=== PATIENT | male | born 1955 | race Caucasian/White ===

== ENCOUNTER 2017-08-22 06:44 | Emergency (ER) | payer MEDICARE, MEDICAID, SELFPAY ==
[2017-08-22 06:45] VITALS: BP 140/109; PULSE 65; RESP 24; TEMP 36.4; O2SAT 94; BMI 79.0
--- NOTE | 2017-08-22 06:57 | NURSING ---
NO LW OR POA
--- NOTE | 2017-08-22 07:03 | RAD_ITS ---
STUDY: X-RAY - ABDOMEN/PELVIS REASON FOR EXAM: Male, 61 years old. One-week history of right lower quadrant pain. No bowel movements. TECHNIQUE: Two AP supine views of the abdomen and pelvis. COMPARISON: None. FINDINGS: Normal visualized lung bases. There is an unremarkable bowel gas pattern. The visualized liver, spleen and kidneys are grossly normal in size and morphology. Normal soft tissue structures. There are diffuse degenerative changes of the visualized lumbar spine. Degenerative changes of both hip joints. Healed fracture of the left inferior pubic ramus. RAD/Abdomen Single View IMPRESSION: Normal x-ray examination of the abdomen and pelvis. Electronically Signed: Jon Narvaez MD at 9:56 EST Tel [phone], Service support ,
--- NOTE | 2017-08-22 07:11 | ED.VISSUMM ---
- ER Visit Summary Date of Service: 08/22/17 Chief Complaint: Abdominal pain History of Present Illness: The patient is a 61 M who comes in from a [facility] with abdominal pain. Been ongoing for 2 days. He states is cramping on the right side. senior living staff noted that he has not had a bowel movement in 1 week. They tried an enema without any results. He has not had a fever, nausea or vomiting. He does take chronic narcotics. He has a history of lymphedema in his left leg comes and wrapped with gauze. Physical Examination: Vital signs are reviewed. HEENT exam unremarkable. Heart is regular rate and rhythm without murmurs. Lungs are clear to auscultation bilaterally. Abdomen is soft, obese with right-sided tenderness. Extremity exam reveals bilateral lower extremity lymphedema. His left leg is malodorous and is erythematous from the distal calf down to the foot. It is warm to touch. His neurologic exam is at baseline. Test Results: Laboratory studies reveal a white blood cell count of 11.6, hemoglobin 12.4. Total bilirubin is 1.2 alkaline phosphatase 123. Urinalysis reveals no blood or infection. Acute abdominal series reveals no acute findings. Emergency Department Course and Treatment: Patient was given Toradol for pain control. His pain may be due to constipation. His white blood cell count is fairly normal. I do not feel he requires any further imaging other than the KUB. I spoke with Dr. Salazar regarding the patient's left leg. He states that that is pretty normal for him. I will not start him on antibiotics for this. He will be sent back to his fpc with MiraLAX to help with constipation. Treatment Plan: [] Disposition: Discharge Impression: Constipation This note was generated with [employer] software. It may contain incorrect words, spelling, and punctuation that were not noted in review of the chart prior to signing ED Disposition - Plan for ED Patient: Chief Complaint: Constipation Referrals: Scott Salazar MD [Primary Care Provider] -
[2017-08-22 09:20] LABS: ALB/GLOB Ratio 0.6 RATIO (0.9-2.4); AST(SGOT) 31 U/L (15-37); Alanine Aminotransfer ALT/SGPT 22 U/L (16-61); Albumin, Serum 3.2 g/dL (3.2-5.0); Alkaline Phosphatase 123 U/L (45-117); Anion Gap 10 (5-15); BUN 16 mg/dL (7-18); BUN/Creat Ratio 13.7 RATIO (10-20); Calcium,Total 8.2 mg/dL (8.5-10.1); Chloride 104 mmol/L (98-107); Creatinine, Serum 1.17 mg/dL (0.70-1.30); EST Glomerular Filtration Rate 67 mL/min (>60); Est Glom Filt Rate - Afr Amer 81 mL/min (>60); Estimated Creatinine Clearance 73.98 ml/min; Globulin 5.3 g/dL (2.2-4.2); Glucose 97 mg/dL (74-106); Lipase 111 U/L (73-393); Potassium 4.6 mmol/L (3.5-5.1); Protein, Total 8.5 g/dL (6.4-8.2); Sodium Level 137 mmol/L (136-145)
--- NOTE | 2017-08-22 09:39 | NURSING ---
FOUND POA PAPERS
[2017-08-22 10:23] LABS: Hemoglobin 12.4 g/dl (13.0-16.5); White Blood Count 11.6 K/mm3 (4.4-11.0)
[2017-08-22 10:24] LABS: Hematocrit 41.8 % (40-54); Mean Corp Hgb Conc 29.7 g/gl (32-36); Mean Corpuscular Hgb 26.4 pg (27.0-32.0); Mean Corpuscular Volume 88.9 fL (80-94); Mean Platelet Vol. 11.9 fl (6.2-12.0); Platelet Count 123 K/mm3 (150-450); RBC Distribution Width CV 17.2 % (11.6-14.6)
[2017-08-22 10:26] LABS: Differential Indicated SCAN CRITERIA MET; POSITIVE COUNT NO; POSITIVE DIFFERENTIAL YES; POSITIVE MORPHOLOGY NO
[2017-08-22 10:29] VITALS: BP 162/76; PULSE 72; RESP 16; O2SAT 97
--- NOTE | 2017-08-22 10:34 | NURSING ---
DR TEA JENKINS
[2017-08-22 10:56] LABS: Basophil% 0.2 % (0-1); Eosinophils% 0.2 % (0-5); Lymphocyte % 5.1 % (19-41); Monocyte% 7.6 % (0-10); Neutrophil % 86.7 % (47-70)
[2017-08-22 10:57] LABS: Basophil# 0.02 X10^3/uL; Eosinophil# 0.02 X10^3/uL; Lymphocyte # 0.59 X10^3/ul (4.0); Monocyte# 0.89 X10^3/uL
[2017-08-22] MEDS: Ketorolac 30 MG/ML Syringe IV (10:59)
[2017-08-22 11:01] LABS: Color, Urine Amber (Yellow); Glucose, Dipstick Normal (Normal); Ketone-Dipstick 15 mg/dl (Negative); Leukocyte Esterase-Dipstick 25 /ul (Negative); Nitrite-Dipstick Negative (Negative); Occult Blood-Urine 10 /ul (Negative); Protein-Dipstick 100 mg/dl (Negative); Specific Gravity, Urine 1.025 (1.002-1.030); Urine Clarity Sl. Cloudy (Clear); Urine Urobilinogen 1 mg/dl (Normal)
[2017-08-22 11:04] LABS: Urine Bilirubin Dipstick 1 mg/dL (Negative)
[2017-08-22 11:11] LABS: Red Blood Cells-Urine 0-5 SEEN /hpf (0-5); Squamous Epithelial Cells - UA 0-5 SEEN /hpf (0-5); White Blood Cells 0-5 SEEN /hpf (0-5)
[2017-08-22 11:12] LABS: Bacteria 1+ /hpf (None Seen); Mucous, Urine 1+ /hpf (<or=2+)
--- NOTE | 2017-08-22 11:19 | ED.DEP ---
ED Disposition - Plan for ED Patient: Disposition: Home or Assisted Living Chief Complaint: Constipation Instructions: ED Constipation Prescriptions: Polyethylene Glycol 3350 [Miralax] 17 gm PO DAILY #30 packet Referrals: Scott Salazar MD [Primary Care Provider] -
[2017-08-22 11:32] VITALS: BP 156/79; PULSE 78; RESP 18; O2SAT 95
[2017-08-22 12:16] VITALS: BP 142/70; PULSE 80; RESP 14; O2SAT 97
== END 2017-08-22 12:23 | disposition home or self-care (01) ==
PROVIDERS: Emergency Provider Emergency Medicine; Family Provider Family Medicine; PCP Family Medicine
DX: K59.00 Constipation, unspecified (principal); I89.0 Lymphedema, not elsewhere classified; I50.9 Heart failure, unspecified; E11.9 Type 2 diabetes mellitus without complications; Z79.84 Long term (current) use of oral hypoglycemic drugs; E66.9 Obesity, unspecified; Z68.45 Body mass index [BMI] 70 or greater, adult; Z79.899 Other long term (current) drug therapy
CPT/HCPCS: 74018; 80053; 81001; 83690; 85025; 96374; 99284; A4216

== ENCOUNTER 2018-04-21 11:01 | Inpatient (IN) | payer OTHER, MEDICAID, SELFPAY ==
[2018-04-21] VITALS (25 sets, daily range): BP systolic 107–156; BP diastolic 56–110; PULSE 93–109; RESP 12–24; TEMP 35.5–37.3; O2SAT 89–100; BMI 77.7
--- NOTE | 2018-04-21 11:15 | RAD_ITS ---
STUDY: X-RAY CHEST REASON FOR EXAM: Male, 62 years old. Dyspnea. TECHNIQUE: Two AP portable views of the chest. COMPARISON: Chest radiograph dated August 20, 2016. FINDINGS: Cardiac monitoring leads are present. The lungs are expanded. There are prominent bronchovascular markings in both lungs. There is right basilar subsegmental atelectasis. There is a right-sided pleural effusion. There is moderate cardiac enlargement. Normal mediastinum and jb. There is prominence of the pulmonary hilar arteries and peripheral pulmonary arteries, consistent with congestive heart failure (CHF). There is atherosclerotic calcification of the aortic arch with tortuosity. There are diffuse degenerative changes of the visualized thoracic spine. Normal visualized ribs, clavicles, and shoulders. There is no demonstrated abnormality of the visualized soft tissue structures of the upper abdomen. RAD/Chest 1 View (Portable) IMPRESSION: Radiographic findings suggest congestive heart failure. Electronically Signed: Joan Gorman MD at 11:58 EDT , Service support ,
--- NOTE | 2018-04-21 11:16 | EKG12_ITS ---
Test Reason : SOB Blood Pressure : / mmHG Vent. Rate : 100 BPM Atrial Rate : 100 BPM P-R Int : 150 ms QRS Dur : 134 ms QT Int : 362 ms P-R-T Axes : 057 266 070 degrees QTc Int : 466 ms Sinus rhythm with Premature atrial complexes Right superior axis deviation Non-specific intra-ventricular conduction block Abnormal ECG Confirmed by DESTINEE GALLARDO, DOTTY ([id number]), proposal editor LOWELL MOE ([id number]) on 04/24/2018 3:10:18 PM Referred By: ARISTEO/TIKI Confirmed By:DOTTY FELIPE MD
[2018-04-21 11:25] LABS: Base Excess 5 mmol/L (-2 to +2); Bicarbonate 30.9 mmol/L (22-26); Blood Gas Specimen Type ART; O2 Delivery Device Nasal Can; PO2 79 mmHG (75-100); SITE L Brachial; SO2 94 % (95-99); Time Given 1115; Total Carbon Dioxide 33 mmol/L; pCO2 62.5 mmHg (35-45)
[2018-04-21] MEDS: 0.9% Normal Saline 1,000 ML 1000 ML IV (11:30)
--- NOTE | 2018-04-21 11:32 | CT_ITS ---
STUDY: CT BRAIN WITHOUT CONTRAST REASON FOR EXAM: Male, 62 years old. Altered mental status. RADIATION DOSAGE (If Supplied By Facility): CTDIvol = ( 44.99 ) mGy, DLP = ( 931.09 ) mGycm TECHNIQUE: Transaxial CT imaging of the brain was performed without administration of intravenous contrast material. Individualized dose optimization techniques were used for this CT. COMPARISON: None. FINDINGS: Normal soft tissue structures. Normal calvarium. Normal size ventricles and extra-axial spaces for the patient's age. Normal white matter tracts of the cerebral hemispheres. Normal basal ganglia and thalami. Normal brainstem. Normal cerebellum. There is no intracranial hemorrhage. There is no large vessel territory ischemia/edema. Normal visualized paranasal sinuses. There is a homogeneous, 2.2 cm transverse by 2.5 cm AP by 1.7 cm SI mass within the posterior right orbit. This mass inferiorly displaces and does not appear to originate from the optic nerve. This mass may originate from the rectus musculature. There is associated mild right proptosis. CT/Brain/Head without Contrast IMPRESSION: No CT evident acute intracranial brain pathology. Right orbital mass with right proptosis. Differential considerations include hemangioma versus pseudotumor versus rhabdomyoma/rhabdomyosarcoma. Recommend further evaluation with dedicated orbital MRI. Electronically Signed: Soto Sutherland MD at 13:40 EDT , Service support ,
--- NOTE | 2018-04-21 11:33 | ED.VISSUMM ---
- ER Visit Summary Date of Service: 04/21/18 Chief Complaint: Slurred speech History of Present Illness: The patient is a 62 M presenting from [facility] with slurred speech. This started approximately 3 hours ago. Patient has a history of morbid obesity and is chronically bedbound. His family states he has not been out of the bed in the past 1-2 months. Nursing staff noticed slurred speech this morning. They are unsure exactly when this started. Also complains of bilateral lower extremity cellulitis and low pulse ox. He has oxygen that he wears as needed but does not wear it all the time. He denies chest pain or abdominal pain. Physical Examination: Vitals are stable. Patient is afebrile. Alert no acute distress. 95% on 5L. HEENT exam is unremarkable. Neck is supple. Lungs are clear and equal anteriorly Heart is regular and tachycardic Abdomen is soft nontender, Morbidly obese Extremities bilateral lower extremity lymphedema. Erythema and warmth right greater than left. Skin is warm and dry. Mild dysarthria Remainder of exam is unremarkable. Emergency Department Course and Treatment: EKG is sinus rate of 100 with no acute ischemic changes. Chest x-ray shows CHF. CBC shows a white count of 9.1, hemoglobin 9.9, platelet 126. Chemistries shows sodium 134, potassium 5.2, BUN 23. Urinalysis shows positive nitrate, 0-5 white blood cells. Urine and blood cultures were sent. Troponin 0.032. Lactic acid is 3.6. Initial ABG shows a pH of 7.302, PCO2 62.5, PO2 79. Patient was placed on BiPAP on arrival. When attempting to take the patient to CT scan he became combative in CT scan and pulled off his BiPAP mask. He was given 1 dose of Ativan and we were able to obtain CT scan. CT head shows no CT evident acute intracranial brain pathology. Right orbital mass with right proptosis. Differential considerations include hemangioma versus pseudotumor versus rhabdomyoma/rhabdomyosarcoma. Recommend further evaluation with dedicated orbital MRI. Patient has become more somnolent in the emergency department. Repeat ABG shows pH 7.24, PCO2 74.5, PO2 149. Discussed these findings with the family at length. Patient is a full code. Discussed options of DNR [facility] and DNR [facility]. They prefer that he is intubated at this time. They are aware of the CT findings and our inability to work this up with MRI at this hospital. They do not want transfer at this time. He was given succinylcholine and etomidate. Patient was intubated with 8.0 ET tube, 22 at lips. Equal breath sounds bilaterally. He was given Zosyn and vancomycin. Discussed with Dr. Lopez and the hospitalist for admission. Disposition: Admission Impression: Respiratory failure, bilateral lower extremity cellulitis, dysarthria, abnormal head CT, intubation by ED physician This note was generated with [employer] dictation software. It may contain incorrect words, spelling, and punctuation that were not noted in review of the chart prior to signing ED Disposition - Plan for ED Patient: Chief Complaint: General Illness Referrals: Scott Salazar MD [Primary Care Provider] -
--- NOTE | 2018-04-21 11:38 | ED.DCSUM_ITS ---
- ER Visit Summary Date of Service: 04/21/18 Chief Complaint: Slurred speech History of Present Illness: The patient is a 62 M presenting from [facility] with slurred speech. This started approximately 3 hours ago. Patient has a history of morbid obesity and is chronically bedbound. His family states he has not been out of the bed in the past 1-2 months. Nursing staff noticed slurred speech this morning. They are unsure exactly when this started. Also complains of bilateral lower extremity cellulitis and low pulse ox. He has oxygen that he wears as needed but does not wear it all the time. He denies chest pain or abdominal pain. Physical Examination: Vitals are stable. Patient is afebrile. Alert no acute distress. 95% on 5L. HEENT exam is unremarkable. Neck is supple. Lungs are clear and equal anteriorly Heart is regular and tachycardic Abdomen is soft nontender, Morbidly obese Extremities bilateral lower extremity lymphedema. Erythema and warmth right greater than left. Skin is warm and dry. Mild dysarthria Remainder of exam is unremarkable. Emergency Department Course and Treatment: EKG is sinus rate of 100 with no acute ischemic changes. Chest x-ray shows CHF. CBC shows a white count of 9.1, hemoglobin 9.9, platelet 126. Chemistries shows sodium 134, potassium 5.2, BUN 23. Urinalysis shows positive nitrate, 0-5 white blood cells. Urine and blood cultures were sent. Troponin 0.032. Lactic acid is 3.6. Initial ABG shows a pH of 7.302, PCO2 62.5, PO2 79. Patient was placed on BiPAP on arrival. When attempting to take the patient to CT scan he became combative in CT scan and pulled off his BiPAP mask. He was given 1 dose of Ativan and we were able to obtain CT scan. CT head shows no CT evident acute intracranial brain pathology. Right orbital mass with right proptosis. Differential considerations include hemangioma versus pseudotumor versus rhabdomyoma/rhabdomyosarcoma. Recommend further evaluation with dedicated orbital MRI. Patient has become more somnolent in the emergency department. Repeat ABG shows pH 7.24, PCO2 74.5, PO2 149. Discussed these findings with the family at length. Patient is a full code. Discussed options of DNR [employer]OLOG[employer] PHOTOGRAPHER and DNR CCA. They prefer that he is intubated at this time. They are aware of the CT findings and our inability to work this up with MRI at this hospital. They do not want transfer at this time. He was given succinylcholine and etomidate. Patient was intubated with 8.0 ET tube, 22 at lips. Equal breath sounds bilaterally. He was given Zosyn and vancomycin. Discussed with Dr. Lopez and the hospitalist for admission. Disposition: Admission Impression: Respiratory failure, bilateral lower extremity cellulitis, dysarthria, abnormal head CT, intubation by ED physician This note was generated with [employer] dictation software. It may contain incorrect words, spelling, and punctuation that were not noted in review of the chart prior to signing ED Disposition - Plan for ED Patient: Chief Complaint: General Illness Referrals: Scott Salazar MD [Primary Care Provider] -
[2018-04-21 11:40] LABS: Mucous, Urine 0 SEEN /hpf (<or=2+); Squamous Epithelial Cells - UA 0 SEEN /hpf (0-5)
[2018-04-21 11:43] LABS: Color, Urine Yellow (Yellow); Glucose, Dipstick Normal (Normal); Ketone-Dipstick 15 mg/dl (Negative); Leukocyte Esterase-Dipstick 25 /ul (Negative); Nitrite-Dipstick Positive (Negative); Occult Blood-Urine 10 /ul (Negative); Protein-Dipstick 100 mg/dl (Negative); Specific Gravity, Urine 1.025 (1.002-1.030); Urine Clarity Sl. Cloudy (Clear); Urine Urobilinogen 8 mg/dl (Normal)
[2018-04-21 11:47] LABS: Urine Bilirubin Dipstick 3 mg/dL (Negative)
[2018-04-21 11:50] LABS: Red Blood Cells-Urine 0-5 SEEN /hpf (0-5); White Blood Cells 0-5 SEEN /hpf (0-5)
[2018-04-21 11:51] LABS: Bacteria 1+ /hpf (None Seen)
[2018-04-21 11:58] LABS: Anion Gap 3 (5-15); BUN 23 mg/dL (7-18); BUN/Creat Ratio 18.4 RATIO (10-20); Calcium,Total 8.9 mg/dL (8.5-10.1); Chloride 98 mmol/L (98-107); Creatinine, Serum 1.25 mg/dL (0.70-1.30); EST Glomerular Filtration Rate 62 mL/min (>60); Est Glom Filt Rate - Afr Amer 75 mL/min (>60); Glucose 91 mg/dL (74-106); Potassium 5.2 mmol/L (3.5-5.1); Sodium Level 134 mmol/L (136-145)
[2018-04-21 12:03] LABS: Lactic Acid 3.6 mmol/L (0.4-2.0)
[2018-04-21] MEDS: LORazepam 2 MG/ML Syringe 1 MG IV (12:22)
--- NOTE | 2018-04-21 12:26 | ED.RN ---
PT BECAME AGITATED IN IMAGING, UNABLE TO COMPLETE SCAN, REFUSING TO WEAR BIPAP. MEDICATED WITH ATIVAN, WILL RE ATTEMPT SCAN AND BIPAP.
--- NOTE | 2018-04-21 12:33 | ED.RN ---
CRITICAL LACTIC OF 3.6 PER LAB, NOTIFIED AT TIME OF CALL.
[2018-04-21 12:45] LABS: Absolute Lymphocyte Count 0.51 X10^3/ul (0.83-4.51); Absolute Neutrophil Count 8.3 X10^3/uL (2.0-7.7); Eosinophil# 0.02 X10^3/uL; Eosinophils% 0.2 % (0-5); Hematocrit 33.3 % (40-54); Hemoglobin 9.9 g/dl (13.0-16.5); Lymphocyte # 0.51 X10^3/ul (4.0); Lymphocyte % 5.6 % (19-41); Mean Corp Hgb Conc 29.7 g/gl (32-36); Mean Corpuscular Hgb 27.8 pg (27.0-32.0); Mean Corpuscular Volume 93.5 fL (80-94); Mean Platelet Vol. 10.4 fl (6.2-12.0); Monocyte# 0.34 X10^3/uL; Monocyte% 3.7 % (0-10); Neutrophil # 8.25 X10^3/uL (2.7-7.7); Neutrophil % 90.3 % (47-70); Platelet Count 126 K/mm3 (150-450); RBC Distribution Width CV 19.9 % (11.6-14.6); RBC Distribution Width SD 65.2 fl (35.1-43.9); Red Blood Count 3.56 M/mm3 (4.6-6.2); White Blood Count 9.1 K/mm3 (4.4-11.0)
[2018-04-21 12:49] LABS: Differential Indicated SCAN CRITERIA MET; POSITIVE COUNT NO; POSITIVE DIFFERENTIAL YES; POSITIVE MORPHOLOGY YES
--- NOTE | 2018-04-21 13:50 | ED.RN ---
DOES NOT WANT MORE THAN 1000ML NS INFUSED AT THIS TIME, CONCERN FOR CHF.
[2018-04-21 13:51] LABS: Base Excess 4 mmol/L (-2 to +2); Bicarbonate 31.9 mmol/L (22-26); Blood Gas Specimen Type ART; EPAP 8; FI02 50; IPAP 25; PO2 149 mmHG (75-100); RR 12; SITE R Radial; SO2 99 % (95-99); Time Given 1335; Total Carbon Dioxide 34 mmol/L; pCO2 74.5 mmHg (35-45); pH 7.24 (7.35-7.45)
--- NOTE | 2018-04-21 13:57 | CPS ---
Patient tolerating bipap poor-fair. Patient asked multiple times for pressures to be lowered. Pressures lowered. while in CT Scan, patient became agitated and removed the bipap mask. He was placed on a nasal cannula and returned to ED.
--- NOTE | 2018-04-21 14:03 | CPS ---
Patient more relaxed now. Bipap mask placed on patient, tolerated trip to CT Scan well.
[2018-04-21] MEDS: Succinylcholine Chloride 200 MG/10 ML Vial 120 MG IV (14:38)
--- NOTE | 2018-04-21 14:43 | RAD_ITS ---
STUDY: X-RAY CHEST REASON FOR EXAM: Male, 62 years old. Dyspnea. TECHNIQUE: Two AP portable views of the chest. COMPARISON: Chest radiograph dated August 20, 2016. FINDINGS: Cardiac monitoring leads are present. The lungs are expanded. There are prominent bronchovascular markings in both lungs. There is right basilar subsegmental atelectasis. There is a right-sided pleural effusion. There is moderate cardiac enlargement. Normal mediastinum and jb. There is prominence of the pulmonary hilar arteries and peripheral pulmonary arteries, consistent with congestive heart failure (CHF). There is atherosclerotic calcification of the aortic arch with tortuosity. There are diffuse degenerative changes of the visualized thoracic spine. Normal visualized ribs, clavicles, and shoulders. There is no demonstrated abnormality of the visualized soft tissue structures of the upper abdomen. RAD/Abdomen Single View (Portable) IMPRESSION: Radiographic findings suggest congestive heart failure. Electronically Signed: Joan Gorman MD at 11:58 EDT , Service support ,
--- NOTE | 2018-04-21 14:51 | ED.RN ---
INTUBATED AT 1439, POSITIVE COLOR CHANGE AND POSITIVE BREATH SOUNDS BILATERAL. SEE CRITICAL CARE CHARTING.
--- NOTE | 2018-04-21 14:54 | RAD_ITS ---
STUDY: X-RAY CHEST at 1445 hours REASON FOR EXAM: Male, 62 years old. Endotracheal tube placement. Feeding tube placement. TECHNIQUE: Single AP supine portable view. COMPARISON: Portable chest 04/21/2018 at 1136 hours. FINDINGS: Endotracheal tube is noted, inferior tip is near the midline overlying the tracheal air column at the lower mid clavicular level with inferior tip approximately 7.5 cm above the inferior lizette. Feeding tube is also noted slightly left of the midline projecting over the lower neck but is obscured inferiorly overlying the mediastinum, heart shadow and thoracic spine due to technical underpenetration due to large body habitus and portable supine technique. Technical overpenetration does not allow evaluation of the left upper and midlung zones. Decreased right lung base volume noted with right lung base, perihilar and medial upper lung heterogeneous opacities, may be due to elevated diaphragm, atelectasis/scarring, pleural fluid, pneumonia or mass. Improved aeration is seen in the right upper lung zone since most recent prior portable chest. No right large gross pneumothorax suggested. Left pneumothorax cannot be evaluated in the upper and midlung zones. Heart appears enlarged. Mediastinum appears widened with ill-defined margins, appears unchanged. No change visualized aortic arch and descending thoracic aorta. Visualized bones appear intact but other bones including thoracic spine are difficult to visualize due to technical underpenetration. No obvious subdiaphragmatic free air seen grossly with above limitations. IMPRESSION: Endotracheal tube positioning as described, inferior tip is approximately 7.5 cm above the inferior lizette with this projection. Limitations above including nonvisualization of the left upper and mid lung and portions of the feeding tube as described above. Clinical correlation recommended. Improved aeration right upper lobe medially but heterogeneous opacities now seen, may represent atelectasis/scarring, pleural fluid or pneumonia. Clinical correlation recommended. If clinically indicated, CT chest with IV contrast or follow-up chest exam is recommended to demonstrate complete clearing as clinically indicated. Cardiomegaly and enlarged widened mediastinum are again seen. Clinical correlation recommended. Electronically Signed: Alirio Nuñez at 15:23 EDT Tel , Service support , RAD/Chest 1 View (Portable)
[2018-04-21] MEDS: Piperacil/Tazobactam 3.375 GM/50 ML ML IV (15:01)
[2018-04-21] MEDS: Propofol 200 MG/20 ML Vial 80 MG IV BOLUS (15:15)
[2018-04-21 15:21] LABS: Reflex Lactate? Y
[2018-04-21] MEDS: Vancomycin IV 1,000 MG/200 ML BAG 200 MG IV (15:28)
[2018-04-21] MEDS: Propofol 10MG/Ml 1,000 MG/100 ML Bottle 8.464 MG CONT INF ×2 (15:28→19:41)
--- NOTE | 2018-04-21 15:55 | ED.RN ---
OLDEST SISTER MIRNA PHONE [phone]. BROTHER LARA'S MANDY PHONE [phone]. PLEASE CALL FOR ANY UPDATES OR CONCERNS.
[2018-04-21 16:26] LABS: Allen Test POS; Base Excess 4 mmol/L (-2 to +2); Bicarbonate 30.8 mmol/L (22-26); Blood Gas Specimen Type ART; FI02 50; Mode A-C; O2 Delivery Device Vent; PEEP 8; PO2 80 mmHG (75-100); RR 12; SITE R Radial; SO2 94 % (95-99); Time Given 1610; Total Carbon Dioxide 33 mmol/L; Vt 450; pCO2 65.2 mmHg (35-45); pH 7.28 (7.35-7.45)
--- NOTE | 2018-04-21 17:37 | NURSING ---
Spoke with [facility] nurse and there is no record of pt receiving flu shot this year. No family present and pt currently intubated.
[2018-04-21 18:09] LABS: BNP,B-Type NATRIURETIC PEPTIDE 716.7 pg/mL (0-100)
[2018-04-21] MEDS: Furosemide 40 MG Tablet PO (18:59)
[2018-04-21 19:26] LABS: Lactic Acid 5.3 mmol/L (0.4-2.0)
[2018-04-21] MEDS: Ipratropium/Albuterol Sulfate 3 ML AMPUL.NEB INHALATION (19:30)
[2018-04-21] MEDS: 0.9% NaCl Peripheral Flush Adult/Peds IV ×2 (19:40→22:54)
--- NOTE | 2018-04-21 20:09 | ECHOD_ITS ---
Reason For Study: CHF Procedure This was a 2D Doppler, Color Flow transthoracic echocardiogram. Technically difficult study due to patient body habitus and condition. Patient was intubated in ICU. Exam performed portable in ICU/CCU. Left Ventricle Severely dilated left ventricle. The estimated ejection fraction is 20-25 %. Severe global left ventricular systolic dysfunction. Right Ventricle Severely dilated right ventricle. Moderate global right ventricular systolic dysfunction. Atria The left atrium is severely enlarged. The right atrium is severely enlarged. Mitral Valve Mild (1+) mitral valve insufficiency. Tricuspid Valve Mild tricuspid valve insufficiency. Pulmonary artery systolic pressure is 32 mmHg. Aortic Valve Mild (1+) aortic valve insufficiency. Pulmonic Valve The pulmonic valve is not well visualized. Great Vessels Normal aortic root. Pericardium/Pleural No pericardial effusion. MMode/2D Measurements & Calculations LVIDd: 6.9 cm IVSd: 1.4 cm Ao root diam: 3.8 cm LVIDs: 6.2 cm LVPWd: 1.3 cm LA dimension: 4.6 cm FS: 10.2 % LAV(MOD-sp4): 113.5 ml LA A4 area: 31.9 cm2 RA A4 area: 35.6 cm2 Time Measurements MV dec time: 0.17 sec Doppler Measurements & Calculations MV E max genoveva: 87.7 cm/sec Ao V2 max: 126.2 cm/sec LV V1 max: 112.6 cm/sec MV A max genoveva: 39.5 cm/sec Ao max P.4 mmHg LV V1 max P.1 mmHg MV E/A: 2.2 Ao V2 mean: 85.9 cm/sec LV V1 mean P.8 mmHg Ao mean P.3 mmHg LV V1 mean: 79.8 cm/sec Ao V2 VTI: 17.3 cm LV V1 VTI: 18.8 cm PA V2 max: 96.3 cm/sec Interpretation Summary The estimated ejection fraction is 20-25 %. Severe global left ventricular systolic dysfunction. Septal wall motion consistent with RV pressure and volume overload Severely dilated right ventricle. Moderate global right ventricular systolic dysfunction. Mild (1+) aortic valve insufficiency. Mild (1+) mitral valve insufficiency. Mild tricuspid valve insufficiency. Pulmonary artery systolic pressure is 32 mmHg. Ordering Physician: Mando Romero Referring Physician: Scott Salazar Performed By: Jaylen Bradshaw RCS
--- NOTE | 2018-04-21 20:18 | PCM.HP.STD ---
Problem List (1) Acute and chronic respiratory failure with hypercapnia Status: Acute History of Present Illness Date of Admission: 04/21/18 Chief Complaint: Increasing lethargy and altered sensorium. There is a 62-year-old male with history of super morbid obesity type 2 diabetes who for the last few months has been essentially bedbound. Patient currently resides in a senior care. At the senior care was noted to be lethargic somnolent and with slurred speech so was brought to the emergency department. Here arterial blood gases were done and patient was noted to be hypercapnic and slightly acidotic. Patient was placed on noninvasive positive pressure ventilation with BiPAP. However despite being on this, mental status continued to worsen with the patient becoming largely unresponsive. Also ABGs continue to worsen as well. On account of this and also to protect patient's airway, patient was electively intubated and placed on mechanical ventilation. Patient is known to have chronic venous stasis in the lower extremities as well as lymphedema which is pretty severe and recurrent cellulitis from these as well. Patient currently dealing with another bout of cellulitis and has been on oral antibiotics at the senior care. Past Medical History Past Medical History (Chronic Problems): Chronic Problems DM2 (diabetes mellitus, type 2) (Chronic) Venous stasis ulcer (Chronic) Lymphedema (Chronic) Poor hygiene (Chronic) Morbid obesity (Chronic) Allergies No Known Allergies Allergy (Verified 04/21/18 11:15) Home Medications: Ambulatory Orders Medication Instructions Recorded Acetaminophen [Tylenol] 650 mg PO Q4H PRN 04/21/18 Albuterol Aerosols [Ventolin 2.5 mg INHALATION Q4H PRN PRN 04/21/18 Aerosols] Allopurinol [Zyloprim] 300 mg PO QHS 04/21/18 Atenolol [Tenormin (Beta Mckinley)] 50 mg PO BID 04/21/18 Bisacodyl [Dulcolax] 10 mg PO DAILY PRN 04/21/18 Bisacodyl [Dulcolax] 10 mg RECTAL DAILY PRN 04/21/18 Bismuth Subsalicylate 30 ml PO Q1H PRN 04/21/18 Dextrose [Glucose Gel] 1 dose PO PRN PRN 04/21/18 Dicyclomine HCl 20 mg PO DAILY 04/21/18 Doxycycline 100 mg PO DAILY 04/21/18 Furosemide [Lasix] 40 mg PO 0800,1200 04/21/18 Glucagon 1 mg IM X1 PRN 04/21/18 Guaifenesin [Mucinex] 600 mg PO Q12H PRN 04/21/18 Guaifenesin [Robitussin] 10 ml PO Q4H PRN PRN 04/21/18 Lactobacillus Rhamnosus GG 1 each PO DAILY 04/21/18 [Culturelle] Loperamide HCl [Imodium A-D] 4 mg PO Q6H PRN 04/21/18 Loratadine 10 mg PO DAILY PRN 04/21/18 Mag Hydrox/Al Hydrox/Simeth 30 ml PO Q4H PRN 04/21/18 [Antacid Suspension] Magnesium Hydroxide [Milk Of 30 ml PO DAILY PRN PRN 04/21/18 Magnesia] Menthol [Biofreeze] 1 applicatio TP Q2H PRN 04/21/18 Methyl Salicylate/Menthol [Muscle 1 applicatio TOPICAL Q2H PRN 04/21/18 Rub Cream] Methyl Salicylate/Menthol [Muscle 1 applicatio TP QHS 04/21/18 Rub Cream] Multivitamins,Therapeutic 1 tablet PO DAILY 04/21/18 [Multivitamin] Na Phos,M-B/Na Phos,Di-Ba [Fleet 120 ml RECTAL X1 PRN 04/21/18 Enema] Nystatin [Mycostatin] 1 applic TOPICAL TID PRN 04/21/18 Omeprazole [Prilosec] 20 mg PO DAILY 04/21/18 Oxycodone [Oxyir] 10 mg PO Q4H PRN PRN 04/21/18 Polyethylene Glycol 3350 [Miralax] 17 gm PO DAILY 04/21/18 Potassium Chloride [Klor-Con M20] 20 meq PO DAILY 04/21/18 Sennosides [Senna] 2 tab PO QHS 04/21/18 Simethicone 80 mg PO TID 04/21/18 buPROPion XL [Wellbutrin Xl] 300 mg PO DAILY 04/21/18 Surgical History: noncontributory Smoking Status: Never smoker - *Family History Maternal History Items: Unknown Paternal History Items: Unknown Review of Systems Comment: Unable to obtain at this time as patient is intubated and unable to vocalize. VTE Information - Inpt Only VTE Present on Admission: No Patient Problems: Active and Suspected Problems Acute and chronic respiratory failure with hypercapnia (Acute) - Physical Exam General: - - Patient is intubated sedated and on mechanical ventilation. HEENT: Atraumatic, PERRLA Oral: Moist Mucosa Neck: Supple, - - Unable to determine jugular venous distention is present as patient has a very short and obese neck. Lungs: - - Breath sounds are diminished bilaterally with a few expiratory wheezing and transmitted sounds noted. Cardiovascular: Regular rate, Regular Rhythm, Normal S1, Normal S2, No murmurs, - - Patient also has a right ventricular S4. Abdomen: Bowel Sounds Present, Soft, Obese Extremities: - - Right lower extremity?markedly swollen markedly erythematous warm tender up to the knee. On the left there is severe lymphedema with hyperkeratosis and [place] on the foot and toes. There is bilateral poorly-pitting edema Skin: - - As above. Neurological: - - Sedated at this time Psych/Mental Status: - - Unable to determine as patient is sedated. Vital Signs Temp Pulse Resp BP Pulse Ox 99.1 F 93 19 H 133/90 H 97 04/21/18 17:30 04/21/18 20:00 04/21/18 18:30 04/21/18 18:30 04/21/18 18:30 Oxygen Flow Rate (L/min) 6 Oxygen Delivery Method Mechanical Ventilator Weight: 282 kg Body Mass Index (BMI) 77.7 Intake and Output for Last 24 Hours 04/19/18 04/20/18 04/21/18 23:59 23:59 23:59 Intake Total 30 / 30 Output Total 300 / 300 Balance -270 / -270 Laboratory Tests Past 24 Hrs 04/21/18 04/21/18 04/21/18 11:14 11:14 11:14 WBC Cancelled Corrected WBC Cancelled RBC Cancelled Hgb Cancelled Hct Cancelled MCV Cancelled MCH Cancelled MCHC Cancelled RDW Cancelled RDW Differential Cancelled Plt Count Cancelled MPV Cancelled Immature Gran % (Auto) Cancelled Neut % (Auto) Cancelled Lymph % (Auto) Cancelled [place] % (Auto) Cancelled Eos % (Auto) Cancelled Baso % (Auto) Cancelled Immature Gran # (Auto) Cancelled Absolute Neuts (auto) Cancelled Absolute Lymphs (auto) Cancelled Absolute Monos (auto) Cancelled Total Counted Cancelled Neutrophils % (Manual) Cancelled Band Neutrophils % Cancelled Lymphocytes % (Manual) Cancelled Monocytes % (Manual) Cancelled Eosinophils % (Manual) Cancelled Basophils % (Manual) Cancelled Metamyelocytes % Cancelled Myelocytes % Cancelled Promyelocytes % Cancelled Blast Cells % Cancelled Plasma Cell % (Manual) Cancelled Other Cells % Cancelled Lymphocytes # Cancelled Nucleated RBCs/100 WBC Cancelled Differential Comment Cancelled Diff Path Review Cancelled Hypersegmented Neuts Cancelled Atypical Lymphocytes Cancelled Reactive Lymphocytes Cancelled Smudge Cells Cancelled Eosinophilia # Cancelled Basophilia # Cancelled Toxic Granulation Cancelled Dohle Bodies Cancelled Ruperto Rods Cancelled Platelet Estimate Cancelled Plt Morphology Comment Cancelled RBC Morphology Cancelled Polychromasia Cancelled Hypochromasia Cancelled Poikilocytosis Cancelled Basophilic Stippling Cancelled Anisocytosis Cancelled Microcytosis Cancelled Macrocytosis Cancelled Spherocytes Cancelled Sickle Cells Cancelled Target Cells Cancelled Tear Drop Cells Cancelled Ovalocytes Cancelled Stomatocytes Cancelled [place] Bodies Cancelled [place] Cells Cancelled Bite Cells Cancelled Acanthocytes (Spur) Cancelled Rouleaux Cancelled Schistocytes Cancelled Specimen Type Sample Site pH Bicarbonate Actual POC Total CO2 Base Excess O2 Saturation O2 % ABG pCO2 ABG pO2 Mart Test Respiration Rate O2 Delivery Device Liter Flow Vent Mode Tidal Volume POC PEEP EPAP IPAP Blood Gas Notified Whom Blood Gas Notified Time Sodium 134 L Potassium 5.2 H Chloride 98 Carbon Dioxide 33.0 H Anion Gap 3 L BUN 23 H Creatinine 1.25 Estim Creat Clear Calc 0.00 Est GFR (MDRD) Af Amer 75 Est GFR (MDRD) Non-Af 62 BUN/Creatinine Ratio 18.4 Glucose 91 Lactic Acid 3.6 H Calcium 8.9 Troponin I 0.032 B-Natriuretic Peptide Urine Color Urine Clarity Urine pH Ur Specific [place] Urine Protein Urine Glucose (UA) Urine Ketones Urine Occult Blood Urine Nitrite Urine Bilirubin Urine Urobilinogen Ur Leukocyte Esterase Urine RBC Urine WBC Ur Squamous Epith Cells Urine Bacteria Urine Mucus 04/21/18 04/21/18 04/21/18 11:21 11:35 12:20 WBC 9.1 Corrected WBC RBC 3.56 L Hgb 9.9 L Hct 33.3 L MCV 93.5 MCH 27.8 MCHC 29.7 L RDW 19.9 H RDW Differential 65.2 H Plt Count 126 L MPV 10.4 Immature Gran % (Auto) 0.200 Neut % (Auto) 90.3 H Lymph % (Auto) 5.6 L [place] % (Auto) 3.7 Eos % (Auto) 0.2 Baso % (Auto) 0.0 Immature Gran # (Auto) Absolute Neuts (auto) 8.3 H Absolute Lymphs (auto) 0.51 L Absolute Monos (auto) Total Counted Not Reportable Neutrophils % (Manual) Band Neutrophils % Lymphocytes % (Manual) Monocytes % (Manual) Eosinophils % (Manual) Basophils % (Manual) Metamyelocytes % Myelocytes % Promyelocytes % Blast Cells % Plasma Cell % (Manual) Other Cells % Lymphocytes # Nucleated RBCs/100 WBC Differential Comment Diff Path Review Hypersegmented Neuts Atypical Lymphocytes Reactive Lymphocytes Smudge Cells Eosinophilia # Basophilia # Toxic Granulation Dohle Bodies Ruperto Rods Platelet Estimate Plt Morphology Comment RBC Morphology Polychromasia Hypochromasia Poikilocytosis Basophilic Stippling Anisocytosis Microcytosis Macrocytosis Spherocytes Sickle Cells Target Cells Tear Drop Cells Ovalocytes Stomatocytes [place] Bodies [place] Cells Bite Cells Acanthocytes (Spur) Rouleaux Schistocytes Specimen Type ART Sample Site L Brachial pH 7.30 L Bicarbonate Actual 30.9 H POC Total CO2 33 Base Excess 5 H O2 Saturation 94 L O2 % ABG pCO2 62.5 H ABG pO2 79 Mart Test Respiration Rate O2 Delivery Device Nasal Can Liter Flow 5.0 Vent Mode Tidal Volume POC PEEP EPAP IPAP Blood Gas Notified Whom ED MD Blood Gas Notified Time 1115 Sodium Potassium Chloride Carbon Dioxide Anion Gap BUN Creatinine Estim Creat Clear Calc Est GFR (MDRD) Af Amer Est GFR (MDRD) Non-Af BUN/Creatinine Ratio Glucose Lactic Acid Calcium Troponin I B-Natriuretic Peptide Urine Color Yellow Urine Clarity Sl. Cloudy Urine pH 5.0 Ur Specific [place] 1.025 Urine Protein 100 H Urine Glucose (UA) Normal Urine Ketones 15 H Urine Occult Blood 10 H Urine Nitrite Positive H Urine Bilirubin 3 H Urine Urobilinogen 8 H Ur Leukocyte Esterase 25 H Urine RBC 0-5 SEEN Urine WBC 0-5 SEEN Ur Squamous Epith Cells 0 SEEN Urine Bacteria 1+ Urine Mucus 0 SEEN 04/21/18 04/21/18 04/21/18 12:20 13:39 16:10 WBC Corrected WBC RBC Hgb Hct MCV MCH MCHC RDW RDW Differential Plt Count MPV Immature Gran % (Auto) Neut % (Auto) Lymph % (Auto) [place] % (Auto) Eos % (Auto) Baso % (Auto) Immature Gran # (Auto) Absolute Neuts (auto) Absolute Lymphs (auto) Absolute Monos (auto) Total Counted Neutrophils % (Manual) Band Neutrophils % Lymphocytes % (Manual) Monocytes % (Manual) Eosinophils % (Manual) Basophils % (Manual) Metamyelocytes % Myelocytes % Promyelocytes % Blast Cells % Plasma Cell % (Manual) Other Cells % Lymphocytes # Nucleated RBCs/100 WBC Differential Comment Diff Path Review Hypersegmented Neuts Atypical Lymphocytes Reactive Lymphocytes Smudge Cells Eosinophilia # Basophilia # Toxic Granulation Dohle Bodies Ruperto Rods Platelet Estimate Plt Morphology Comment RBC Morphology Polychromasia Hypochromasia Poikilocytosis Basophilic Stippling Anisocytosis Microcytosis Macrocytosis Spherocytes Sickle Cells Target Cells Tear Drop Cells Ovalocytes Stomatocytes [place] Bodies [place] Cells Bite Cells Acanthocytes (Spur) Rouleaux Schistocytes Specimen Type ART Sample Site R Radial pH 7.24 L Bicarbonate Actual 31.9 H POC Total CO2 34 Base Excess 4 H O2 Saturation 99 O2 % 50 ABG pCO2 74.5 H* ABG pO2 149 H Mart Test NA Respiration Rate 12 O2 Delivery Device Bi / C PAP Liter Flow Vent Mode Tidal Volume POC PEEP EPAP 8 IPAP 25 Blood Gas Notified Whom ED Blood Gas Notified Time 1335 Sodium Potassium Chloride Carbon Dioxide Anion Gap BUN Creatinine Estim Creat Clear Calc Est GFR (MDRD) Af Amer Est GFR (MDRD) Non-Af BUN/Creatinine Ratio Glucose Lactic Acid Cancelled Calcium Troponin I B-Natriuretic Peptide 716.7 H Urine Color Urine Clarity Urine pH Ur Specific [place] Urine Protein Urine Glucose (UA) Urine Ketones Urine Occult Blood Urine Nitrite Urine Bilirubin Urine Urobilinogen Ur Leukocyte Esterase Urine RBC Urine WBC Ur Squamous Epith Cells Urine Bacteria Urine Mucus 04/21/18 04/21/18 04/21/18 16:21 17:30 18:33 WBC Corrected WBC RBC Hgb Hct MCV MCH MCHC RDW RDW Differential Plt Count MPV Immature Gran % (Auto) Neut % (Auto) Lymph % (Auto) [place] % (Auto) Eos % (Auto) Baso % (Auto) Immature Gran # (Auto) Absolute Neuts (auto) Absolute Lymphs (auto) Absolute Monos (auto) Total Counted Neutrophils % (Manual) Band Neutrophils % Lymphocytes % (Manual) Monocytes % (Manual) Eosinophils % (Manual) Basophils % (Manual) Metamyelocytes % Myelocytes % Promyelocytes % Blast Cells % Plasma Cell % (Manual) Other Cells % Lymphocytes # Nucleated RBCs/100 WBC Differential Comment Diff Path Review Hypersegmented Neuts Atypical Lymphocytes Reactive Lymphocytes Smudge Cells Eosinophilia # Basophilia # Toxic Granulation Dohle Bodies Ruperto Rods Platelet Estimate Plt Morphology Comment RBC Morphology Polychromasia Hypochromasia Poikilocytosis Basophilic Stippling Anisocytosis Microcytosis Macrocytosis Spherocytes Sickle Cells Target Cells Tear Drop Cells Ovalocytes Stomatocytes [place] Bodies [place] Cells Bite Cells Acanthocytes (Spur) Rouleaux Schistocytes Specimen Type ART Sample Site R Radial pH 7.28 L Bicarbonate Actual 30.8 H POC Total CO2 33 Base Excess 4 H O2 Saturation 94 L O2 % 50 ABG pCO2 65.2 H ABG pO2 80 Mart Test POS Respiration Rate 12 O2 Delivery Device Vent Liter Flow Vent Mode A-C Tidal Volume 450 POC PEEP 8 EPAP IPAP Blood Gas Notified Whom ED MD Blood Gas Notified Time 1610 Sodium Potassium Chloride Carbon Dioxide Anion Gap BUN Creatinine Estim Creat Clear Calc Est GFR (MDRD) Af Amer Est GFR (MDRD) Non-Af BUN/Creatinine Ratio Glucose Lactic Acid Cancelled 5.3 H* Calcium Troponin I B-Natriuretic Peptide Urine Color Urine Clarity Urine pH Ur Specific [place] Urine Protein Urine Glucose (UA) Urine Ketones Urine Occult Blood Urine Nitrite Urine Bilirubin Urine Urobilinogen Ur Leukocyte Esterase Urine RBC Urine WBC Ur Squamous Epith Cells Urine Bacteria Urine Mucus Assessment/Plan All Active Problems Acute and chronic respiratory failure with hypercapnia (Acute) Cellulitis, leg (Resolved) Hyperkalemia (Acute) HAY (acute kidney injury) (Acute) Cellulitis (Resolved) 1. Acute encephalopathy secondary to metabolic derangements specifically hypercapnia. 2. Acute on chronic hypercapnic respiratory failure. This appears to be multifactorial including obstructive sleep apnea and perhaps obesity alveolar hypoventilation syndrome and pulmonary hypertension. Suspect that there may be superimposed pulmonary edema from left ventricular diastolic failure. ProBNP is elevated. Will start patient empirically on IV Lasix with serial chest x-ray and physical examinations. Will order chest CT to rule out any other complication such as a atelectasis from mucous plugging. Patient has been intubated and is on mechanical ventilation. Will consult district court bailiff for critical care. 3. Right lower extremity cellulitis. Will treat with IV cefazolin and doxycycline to cover Streptococcus pyogenous and MRSA. Consider infectious disease consultation given protracted and recurrent nature of this infection. 4. Super morbid obesity. Code Visit Inpatient E&M: [id number] Init Hosp L3
[2018-04-21] MEDS: fentaNYL drip 100 ML 5 MCG IV (20:53)
[2018-04-21] MEDS: 0.9% NaCl IVPB Med Flush (250 mL) 15 ML IV (20:54)
[2018-04-21 21:43] LABS: Lactic Acid 4.3 mmol/L (0.4-2.0)
[2018-04-21 22:39] LABS: Reflex Lactate? Y
[2018-04-21] MEDS: Allopurinol 300 MG Tablet GT (22:54)
[2018-04-21] MEDS: Chlorhexidine 15 ML PO (22:54)
[2018-04-21] MEDS: Furosemide 40 MG/4 ML Vial IV (22:54)
[2018-04-21] MEDS: Atenolol 50 MG Tablet GT (22:54)
[2018-04-22] VITALS (45 sets, daily range): BP systolic 68–127; BP diastolic 40–88; PULSE 81–101; RESP 12–32; TEMP 36.2–37.1; O2SAT 95–101
[2018-04-22] MEDS: Propofol 10MG/Ml 1,000 MG/100 ML Bottle 8.464 MG CONT INF ×6 (00:41→21:44)
[2018-04-22 01:14] LABS: Reflex Lactate? Y
[2018-04-22] MEDS: Ipratropium/Albuterol Sulfate 3 ML AMPUL.NEB INHALATION ×4 (01:30→19:37)
[2018-04-22 05:46] LABS: Hemoglobin 14.1 g/dl (13.0-16.5); Mean Corp Hgb Conc 30.7 g/gl (32-36); Mean Corpuscular Hgb 27.7 pg (27.0-32.0); Mean Corpuscular Volume 90.4 fL (80-94); Mean Platelet Vol. 10.8 fl (6.2-12.0); Platelet Count 132 K/mm3 (150-450); RBC Distribution Width CV 20.1 % (11.6-14.6); RBC Distribution Width SD 64.8 fl (35.1-43.9); Red Blood Count 5.09 M/mm3 (4.6-6.2); White Blood Count 15.5 K/mm3 (4.4-11.0)
[2018-04-22] MEDS: 0.9% NaCl Peripheral Flush Adult/Peds IV ×3 (05:46→16:33)
[2018-04-22] MEDS: Furosemide 40 MG/4 ML Vial IV (05:46)
[2018-04-22] MEDS: CHLORHEXIDINE GLUC 2% CLOTH 1 EACH TOWELETTE TOPICAL (05:46)
[2018-04-22 05:47] LABS: Scan Indicated on CBC? Y/N YES- FLAGS NOTED
[2018-04-22 05:59] LABS: Anion Gap 8 (5-15); BUN 23 mg/dL (7-18); BUN/Creat Ratio 19.7 RATIO (10-20); Calcium,Total 8.2 mg/dL (8.5-10.1); Chloride 101 mmol/L (98-107); Creatinine, Serum 1.17 mg/dL (0.70-1.30); EST Glomerular Filtration Rate 67 mL/min (>60); Est Glom Filt Rate - Afr Amer 81 mL/min (>60); Estimated Creatinine Clearance 77.24 ml/min; Glucose 73 mg/dL (74-106); Potassium 4.6 mmol/L (3.5-5.1); Sodium Level 136 mmol/L (136-145)
[2018-04-22 06:06] LABS: Differential Comment SCANNED
[2018-04-22 06:25] LABS: Bedside Glucose 64 mg/dL (70-110)
[2018-04-22] MEDS: Heparin Injection (Vial) 5,000 UNIT/ML VIAL 5000 UNIT SC (07:05)
[2018-04-22] MEDS: Dextrose 50%-Water 25 GM/50 ML DISP.SYRIN IV ×3 (07:06→23:46)
--- NOTE | 2018-04-22 07:16 | PCM.CON.CC ---
Reason for Consult Date of Consultation: 04/22/18 Reason for Consultation: Acute respiratory failure History of Present Illness: The patient is a 62-year-old male, with a history as outlined below, who presented from his prison facility with dysarthric speech, hypoxia and lower extremity edema/erythema. The patient has a history of super morbid obesity and has a history of noncompliance with medical care. He has been essentially bedbound at his prison facility for some time now. History pertinent to the patient's hospitalization was obtained primarily via chart review, as the patient is currently intubated and there is no family available at the bedside. On presentation to the emergency department, the patient was noted to be afebrile, tachypneic and hypoxic. Laboratory evaluation revealed no evidence of a leukocytosis. Chemistry profile revealed elevated potassium to 5.2 with a serum bicarbonate of 33. The patient's lactate was elevated to 3.6, with an elevated BNP to 716. Urinalysis was positive for nitrites and leukocyte esterase with 1+ urine bacteria noted. An initial arterial blood gas obtained on 5 L/min via nasal cannula revealed a pH of 7.3 with a PCO2 of 63 and PO2 of 79. The patient was subsequently placed on BiPAP in the emergency department. His plain film chest imaging initially appeared to be concerning for congestive heart failure. A CT head was obtained which revealed evidence of a right orbital mass with right proptosis. Despite the use of noninvasive positive pressure ventilation, the patient remained exceedingly lethargic and a follow-up arterial blood gas revealed worsening acid-base status, with an elevated PCO2. Therefore, the decision was made to intubate the patient given his lack of response to noninvasive positive pressure ventilation. Per my conversation with the emergency department provider, the family was made aware of the CT head findings and the need for potential follow-up MRI. However, at this time, they would not like to pursue any additional workup. The patient did not initially receive a 30 cc/kg bolus due to fears over underlying heart failure. He was placed on antibiotics and subsequently admitted to the medical intensive care unit. Past Medical History Past Medical History (Chronic Problems): Chronic Problems DM2 (diabetes mellitus, type 2) (Chronic) Venous stasis ulcer (Chronic) Lymphedema (Chronic) Poor hygiene (Chronic) Morbid obesity (Chronic) Allergies No Known Allergies Allergy (Verified 04/21/18 11:15) Home Medications: Ambulatory Orders Medication Instructions Recorded Acetaminophen [Tylenol] 650 mg PO Q4H PRN 04/21/18 Albuterol Aerosols [Ventolin 2.5 mg INHALATION Q4H PRN PRN 04/21/18 Aerosols] Allopurinol [Zyloprim] 300 mg PO QHS 04/21/18 Atenolol [Tenormin (Beta Mckinley)] 50 mg PO BID 04/21/18 Bisacodyl [Dulcolax] 10 mg PO DAILY PRN 04/21/18 Bisacodyl [Dulcolax] 10 mg RECTAL DAILY PRN 04/21/18 Bismuth Subsalicylate 30 ml PO Q1H PRN 04/21/18 Dextrose [Glucose Gel] 1 dose PO PRN PRN 04/21/18 Dicyclomine HCl 20 mg PO DAILY 04/21/18 Doxycycline 100 mg PO DAILY 04/21/18 Furosemide [Lasix] 40 mg PO 0800,1200 04/21/18 Glucagon 1 mg IM X1 PRN 04/21/18 Guaifenesin [Mucinex] 600 mg PO Q12H PRN 04/21/18 Guaifenesin [Robitussin] 10 ml PO Q4H PRN PRN 04/21/18 Lactobacillus Rhamnosus GG 1 each PO DAILY 04/21/18 [Culturelle] Loperamide HCl [Imodium A-D] 4 mg PO Q6H PRN 04/21/18 Loratadine 10 mg PO DAILY PRN 04/21/18 Mag Hydrox/Al Hydrox/Simeth 30 ml PO Q4H PRN 04/21/18 [Antacid Suspension] Magnesium Hydroxide [Milk Of 30 ml PO DAILY PRN PRN 04/21/18 Magnesia] Menthol [Biofreeze] 1 applicatio TP Q2H PRN 04/21/18 Methyl Salicylate/Menthol [Muscle 1 applicatio TOPICAL Q2H PRN 04/21/18 Rub Cream] Methyl Salicylate/Menthol [Muscle 1 applicatio TP QHS 04/21/18 Rub Cream] Multivitamins,Therapeutic 1 tablet PO DAILY 04/21/18 [Multivitamin] Na Phos,M-B/Na Phos,Di-Ba [Fleet 120 ml RECTAL X1 PRN 04/21/18 Enema] Nystatin [Mycostatin] 1 applic TOPICAL TID PRN 04/21/18 Omeprazole [Prilosec] 20 mg PO DAILY 04/21/18 Oxycodone [Oxyir] 10 mg PO Q4H PRN PRN 04/21/18 Polyethylene Glycol 3350 [Miralax] 17 gm PO DAILY 04/21/18 Potassium Chloride [Klor-Con M20] 20 meq PO DAILY 04/21/18 Sennosides [Senna] 2 tab PO QHS 04/21/18 Simethicone 80 mg PO TID 04/21/18 buPROPion XL [Wellbutrin Xl] 300 mg PO DAILY 04/21/18 Surgical History: noncontributory Smoking Status: Never smoker - *Family History Maternal History Items: Unknown Paternal History Items: Unknown Review of Systems Unable to obtain accurate/complete ROS d/t: Due to current intubation and mechanical ventilation status. Patient Problems: Active and Suspected Problems Acute and chronic respiratory failure with hypercapnia (Acute) Objective: The patient's most recent lab work, culture data and imaging studies have all been personally reviewed. Blood and urine cultures are currently pending. - Physical Exam General: - - Super morbidly obese. Intubated, sedated and mechanically ventilated. HEENT: Atraumatic, PERRLA, Normocephalic Oral: No Gingival or Mucosal Lesions/ Ulcerations, - - Endotracheal and OG tubes in place Neck: Supple, No Nodes, Trachea Midline, - - Large neck circumference with an abundant amount of redundant soft tissue Lungs: - - Clear across anterior lung mcnamara with diminished air movement in the posterior lung bases. Cardiovascular: Normal S1, Normal S2, No murmurs, Tachycardic, - - Distant heart tones secondary to body habitus. Abdomen: Bowel Sounds Present, Soft, Obese Extremities: - - Severe bilateral lower extremity lymphedema with hyperkeratosis and erythema (right greater than left) Skin: - - Skin findings as noted above. Musculoskeletal: No Muscle Wasting Neurological: - - No focal neurological deficits. Currently sedated. Vital Signs Temp Pulse Resp BP Pulse Ox 97.4 F L 98 13 124/63 H 98 04/22/18 07:00 04/22/18 07:00 04/22/18 07:00 04/22/18 07:00 04/22/18 07:00 Oxygen Flow Rate (L/min) 6 Oxygen Delivery Method Mechanical Ventilator Weight: 573 lb 3.23 oz Body Mass Index (BMI) 77.7 Intake and Output for Last 24 Hours 04/20/18 04/21/18 04/22/18 23:59 23:59 23:59 Intake Total 536 / 536 395 / 395 Output Total 850 / 850 850 / 850 Balance -314 / -314 -455 / -455 Laboratory Tests Past 24 Hrs 04/21/18 04/21/18 04/21/18 11:14 11:14 11:14 WBC Cancelled Corrected WBC Cancelled RBC Cancelled Hgb Cancelled Hct Cancelled MCV Cancelled MCH Cancelled MCHC Cancelled RDW Cancelled RDW Differential Cancelled Plt Count Cancelled MPV Cancelled Immature Gran % (Auto) Cancelled Neut % (Auto) Cancelled Lymph % (Auto) Cancelled [place] % (Auto) Cancelled Eos % (Auto) Cancelled Baso % (Auto) Cancelled Immature Gran # (Auto) Cancelled Absolute Neuts (auto) Cancelled Absolute Lymphs (auto) Cancelled Absolute Monos (auto) Cancelled Total Counted Cancelled Neutrophils % (Manual) Cancelled Band Neutrophils % Cancelled Lymphocytes % (Manual) Cancelled Monocytes % (Manual) Cancelled Eosinophils % (Manual) Cancelled Basophils % (Manual) Cancelled Metamyelocytes % Cancelled Myelocytes % Cancelled Promyelocytes % Cancelled Blast Cells % Cancelled Plasma Cell % (Manual) Cancelled Other Cells % Cancelled Lymphocytes # Cancelled Nucleated RBCs/100 WBC Cancelled Differential Comment Cancelled Diff Path Review Cancelled Hypersegmented Neuts Cancelled Atypical Lymphocytes Cancelled Reactive Lymphocytes Cancelled Smudge Cells Cancelled Eosinophilia # Cancelled Basophilia # Cancelled Toxic Granulation Cancelled Dohle Bodies Cancelled Ruperto Rods Cancelled Platelet Estimate Cancelled Plt Morphology Comment Cancelled RBC Morphology Cancelled Polychromasia Cancelled Hypochromasia Cancelled Poikilocytosis Cancelled Basophilic Stippling Cancelled Anisocytosis Cancelled Microcytosis Cancelled Macrocytosis Cancelled Spherocytes Cancelled Sickle Cells Cancelled Target Cells Cancelled Tear Drop Cells Cancelled Ovalocytes Cancelled Stomatocytes Cancelled [place] Bodies Cancelled [place] Cells Cancelled Bite Cells Cancelled Acanthocytes (Spur) Cancelled Rouleaux Cancelled Schistocytes Cancelled Specimen Type Sample Site pH Bicarbonate Actual POC Total CO2 Base Excess O2 Saturation O2 % ABG pCO2 ABG pO2 Mart Test Respiration Rate O2 Delivery Device Liter Flow Vent Mode Tidal Volume POC PEEP EPAP IPAP Blood Gas Notified Whom Blood Gas Notified Time Sodium 134 L Potassium 5.2 H Chloride 98 Carbon Dioxide 33.0 H Anion Gap 3 L BUN 23 H Creatinine 1.25 Estim Creat Clear Calc 0.00 Est GFR (MDRD) Af Amer 75 Est GFR (MDRD) Non-Af 62 BUN/Creatinine Ratio 18.4 Glucose 91 Lactic Acid 3.6 H Calcium 8.9 Troponin I 0.032 B-Natriuretic Peptide Urine Color Urine Clarity Urine pH Ur Specific [place] Urine Protein Urine Glucose (UA) Urine Ketones Urine Occult Blood Urine Nitrite Urine Bilirubin Urine Urobilinogen Ur Leukocyte Esterase Urine RBC Urine WBC Ur Squamous Epith Cells Urine Bacteria Urine Mucus 04/21/18 04/21/18 04/21/18 11:21 11:35 12:20 WBC 9.1 Corrected WBC RBC 3.56 L Hgb 9.9 L Hct 33.3 L MCV 93.5 MCH 27.8 MCHC 29.7 L RDW 19.9 H RDW Differential 65.2 H Plt Count 126 L MPV 10.4 Immature Gran % (Auto) 0.200 Neut % (Auto) 90.3 H Lymph % (Auto) 5.6 L [place] % (Auto) 3.7 Eos % (Auto) 0.2 Baso % (Auto) 0.0 Immature Gran # (Auto) Absolute Neuts (auto) 8.3 H Absolute Lymphs (auto) 0.51 L Absolute Monos (auto) Total Counted Not Reportable Neutrophils % (Manual) Band Neutrophils % Lymphocytes % (Manual) Monocytes % (Manual) Eosinophils % (Manual) Basophils % (Manual) Metamyelocytes % Myelocytes % Promyelocytes % Blast Cells % Plasma Cell % (Manual) Other Cells % Lymphocytes # Nucleated RBCs/100 WBC Differential Comment Diff Path Review Hypersegmented Neuts Atypical Lymphocytes Reactive Lymphocytes Smudge Cells Eosinophilia # Basophilia # Toxic Granulation Dohle Bodies Ruperto Rods Platelet Estimate Plt Morphology Comment RBC Morphology Polychromasia Hypochromasia Poikilocytosis Basophilic Stippling Anisocytosis Microcytosis Macrocytosis Spherocytes Sickle Cells Target Cells Tear Drop Cells Ovalocytes Stomatocytes [place] Bodies [place] Cells Bite Cells Acanthocytes (Spur) Rouleaux Schistocytes Specimen Type ART Sample Site L Brachial pH 7.30 L Bicarbonate Actual 30.9 H POC Total CO2 33 Base Excess 5 H O2 Saturation 94 L O2 % ABG pCO2 62.5 H ABG pO2 79 Mart Test Respiration Rate O2 Delivery Device Nasal Can Liter Flow 5.0 Vent Mode Tidal Volume POC PEEP EPAP IPAP Blood Gas Notified Whom ED Blood Gas Notified Time 1115 Sodium Potassium Chloride Carbon Dioxide Anion Gap BUN Creatinine Estim Creat Clear Calc Est GFR (MDRD) Af Amer Est GFR (MDRD) Non-Af BUN/Creatinine Ratio Glucose Lactic Acid Calcium Troponin I B-Natriuretic Peptide Urine Color Yellow Urine Clarity Sl. Cloudy Urine pH 5.0 Ur Specific [place] 1.025 Urine Protein 100 H Urine Glucose (UA) Normal Urine Ketones 15 H Urine Occult Blood 10 H Urine Nitrite Positive H Urine Bilirubin 3 H Urine Urobilinogen 8 H Ur Leukocyte Esterase 25 H Urine RBC 0-5 SEEN Urine WBC 0-5 SEEN Ur Squamous Epith Cells 0 SEEN Urine Bacteria 1+ Urine Mucus 0 SEEN 04/21/18 04/21/18 04/21/18 12:20 13:39 16:10 WBC Corrected WBC RBC Hgb Hct MCV MCH MCHC RDW RDW Differential Plt Count MPV Immature Gran % (Auto) Neut % (Auto) Lymph % (Auto) [place] % (Auto) Eos % (Auto) Baso % (Auto) Immature Gran # (Auto) Absolute Neuts (auto) Absolute Lymphs (auto) Absolute Monos (auto) Total Counted Neutrophils % (Manual) Band Neutrophils % Lymphocytes % (Manual) Monocytes % (Manual) Eosinophils % (Manual) Basophils % (Manual) Metamyelocytes % Myelocytes % Promyelocytes % Blast Cells % Plasma Cell % (Manual) Other Cells % Lymphocytes # Nucleated RBCs/100 WBC Differential Comment Diff Path Review Hypersegmented Neuts Atypical Lymphocytes Reactive Lymphocytes Smudge Cells Eosinophilia # Basophilia # Toxic Granulation Dohle Bodies [place] Rods Platelet Estimate Plt Morphology Comment RBC Morphology Polychromasia Hypochromasia Poikilocytosis Basophilic Stippling Anisocytosis Microcytosis Macrocytosis Spherocytes Sickle Cells Target Cells Tear Drop Cells Ovalocytes Stomatocytes [place] Bodies [place] Cells Bite Cells Acanthocytes (Spur) Rouleaux Schistocytes Specimen Type ART Sample Site R Radial pH 7.24 L Bicarbonate Actual 31.9 H POC Total CO2 34 Base Excess 4 H O2 Saturation 99 O2 % 50 ABG pCO2 74.5 H* ABG pO2 149 H Mart Test NA Respiration Rate 12 O2 Delivery Device Bi / C PAP Liter Flow Vent Mode Tidal Volume POC PEEP EPAP 8 IPAP 25 Blood Gas Notified Whom ED Blood Gas Notified Time 1335 Sodium Potassium Chloride Carbon Dioxide Anion Gap BUN Creatinine Estim Creat Clear Calc Est GFR (MDRD) Af Amer Est GFR (MDRD) Non-Af BUN/Creatinine Ratio Glucose Lactic Acid Cancelled Calcium Troponin I B-Natriuretic Peptide 716.7 H Urine Color Urine Clarity Urine pH Ur Specific [place] Urine Protein Urine Glucose (UA) Urine Ketones Urine Occult Blood Urine Nitrite Urine Bilirubin Urine Urobilinogen Ur Leukocyte Esterase Urine RBC Urine WBC Ur Squamous Epith Cells Urine Bacteria Urine Mucus 04/21/18 04/21/18 04/21/18 16:21 17:30 18:33 WBC Corrected WBC RBC Hgb Hct MCV MCH MCHC RDW RDW Differential Plt Count MPV Immature Gran % (Auto) Neut % (Auto) Lymph % (Auto) [place] % (Auto) Eos % (Auto) Baso % (Auto) Immature Gran # (Auto) Absolute Neuts (auto) Absolute Lymphs (auto) Absolute Monos (auto) Total Counted Neutrophils % (Manual) Band Neutrophils % Lymphocytes % (Manual) Monocytes % (Manual) Eosinophils % (Manual) Basophils % (Manual) Metamyelocytes % Myelocytes % Promyelocytes % Blast Cells % Plasma Cell % (Manual) Other Cells % Lymphocytes # Nucleated RBCs/100 WBC Differential Comment Diff Path Review Hypersegmented Neuts Atypical Lymphocytes Reactive Lymphocytes Smudge Cells Eosinophilia # Basophilia # Toxic Granulation Dohle Bodies Ruperto Rods Platelet Estimate Plt Morphology Comment RBC Morphology Polychromasia Hypochromasia Poikilocytosis Basophilic Stippling Anisocytosis Microcytosis Macrocytosis Spherocytes Sickle Cells Target Cells Tear Drop Cells Ovalocytes Stomatocytes [place] Bodies [place] Cells Bite Cells Acanthocytes (Spur) Rouleaux Schistocytes Specimen Type ART Sample Site R Radial pH 7.28 L Bicarbonate Actual 30.8 H POC Total CO2 33 Base Excess 4 H O2 Saturation 94 L O2 % 50 ABG pCO2 65.2 H ABG pO2 80 Mart Test POS Respiration Rate 12 O2 Delivery Device Vent Liter Flow Vent Mode A-C Tidal Volume 450 POC PEEP 8 EPAP IPAP Blood Gas Notified Whom ED Blood Gas Notified Time 1610 Sodium Potassium Chloride Carbon Dioxide Anion Gap BUN Creatinine Estim Creat Clear Calc Est GFR (MDRD) Af Amer Est GFR (MDRD) Non-Af BUN/Creatinine Ratio Glucose Lactic Acid Cancelled 5.3 H* Calcium Troponin I B-Natriuretic Peptide Urine Color Urine Clarity Urine pH Ur Specific [place] Urine Protein Urine Glucose (UA) Urine Ketones Urine Occult Blood Urine Nitrite Urine Bilirubin Urine Urobilinogen Ur Leukocyte Esterase Urine RBC Urine WBC Ur Squamous Epith Cells Urine Bacteria Urine Mucus 04/21/18 04/22/18 04/22/18 21:10 05:36 05:36 WBC 15.5 H Corrected WBC RBC 5.09 Hgb 14.1 Hct 46.0 MCV 90.4 MCH 27.7 MCHC 30.7 L RDW 20.1 H RDW Differential 64.8 H Plt Count 132 L MPV 10.8 Immature Gran % (Auto) Neut % (Auto) Lymph % (Auto) [place] % (Auto) Eos % (Auto) Baso % (Auto) Immature Gran # (Auto) Absolute Neuts (auto) Absolute Lymphs (auto) Absolute Monos (auto) Total Counted Neutrophils % (Manual) Band Neutrophils % Lymphocytes % (Manual) Monocytes % (Manual) Eosinophils % (Manual) Basophils % (Manual) Metamyelocytes % Myelocytes % Promyelocytes % Blast Cells % Plasma Cell % (Manual) Other Cells % Lymphocytes # Nucleated RBCs/100 WBC Differential Comment SCANNED Diff Path Review Hypersegmented Neuts Atypical Lymphocytes Reactive Lymphocytes Smudge Cells Eosinophilia # Basophilia # Toxic Granulation Dohle Bodies Ruperto Rods Platelet Estimate Plt Morphology Comment RBC Morphology Polychromasia Hypochromasia Poikilocytosis Basophilic Stippling Anisocytosis Microcytosis Macrocytosis Spherocytes Sickle Cells Target Cells Tear Drop Cells Ovalocytes Stomatocytes [place] Bodies [place] Cells Bite Cells Acanthocytes (Spur) Rouleaux Schistocytes Specimen Type Sample Site pH Bicarbonate Actual POC Total CO2 Base Excess O2 Saturation O2 % ABG pCO2 ABG pO2 Mart Test Respiration Rate O2 Delivery Device Liter Flow Vent Mode Tidal Volume POC PEEP EPAP IPAP Blood Gas Notified Whom Blood Gas Notified Time Sodium 136 Potassium 4.6 Chloride 101 Carbon Dioxide 27.0 Anion Gap 8 BUN 23 H Creatinine 1.17 Estim Creat Clear Calc 77.24 Est GFR (MDRD) Af Amer 81 Est GFR (MDRD) Non-Af 67 BUN/Creatinine Ratio 19.7 Glucose 73 L Lactic Acid 4.3 H* Calcium 8.2 L Troponin I B-Natriuretic Peptide Urine Color Urine Clarity Urine pH Ur Specific [place] Urine Protein Urine Glucose (UA) Urine Ketones Urine Occult Blood Urine Nitrite Urine Bilirubin Urine Urobilinogen Ur Leukocyte Esterase Urine RBC Urine WBC Ur Squamous Epith Cells Urine Bacteria Urine Mucus POC Glucose 04/22/18 06:19 POC Glucose 64 L Clinical Impression(s) from Imaging Studies Chest X-Ray 04/21/18 11:15 IMPRESSION: Radiographic findings suggest congestive heart failure. Electronically Signed: Joan Gorman MD at 11:58 EDT , Service support , Brain CT 04/21/18 11:32 IMPRESSION: No CT evident acute intracranial brain pathology. Right orbital mass with right proptosis. Differential considerations include hemangioma versus pseudotumor versus rhabdomyoma/rhabdomyosarcoma. Recommend further evaluation with dedicated orbital MRI. Electronically Signed: Soto Sutherland MD at 13:40 EDT , Service support , Chest X-Ray 04/21/18 14:54 Assessment/Plan Active and Suspected Problems Acute and chronic respiratory failure with hypercapnia (Acute) RECOMMENDATIONS: 1. We will make additional recommendations for ventilator changes to further augment the patient's PCO2 level. 2. Check strep and urine Legionella antigens, along with respiratory viral panel and obtain a sputum culture. 3. Wound care consultation for evaluation of lower extremities 4. Continue diuretic as ordered. 5. Echocardiogram is pending. 6. Obtain repeat plain film chest x-ray. 7. Check MRSA screen 8. Broaden antibiotics for now, pending infectious workup. 9. Start appropriate DVT and GI prophylaxis. 10. Initiate tube feeds today. IMPRESSIONS: 1. Acute hypoxemic and hypercarbic respiratory failure Potential etiologies include decompensated heart failure and/or underlying pulmonary infectious process. However, the patient's chest imaging studies are quite difficult to interpret due to poor quality secondary to the patient's body habitus. For now, he will be continued on Lasix as ordered. Empiric antibiotics will be continued, pending a pulmonary infectious workup. We will continue to wean FiO2 and PEEP to maintain an oxygen saturation above 90%. Additional changes will be made to the patient's ventilator parameters to further aid in CO2 elimination. 2. Encephalopathy Likely metabolic in etiology with underlying CO2 retention identified. Anticipate improvement with correction of the patient's underlying acid-base disturbance. Continue current sedation regimen with a goal to maintain a RASS of -1 to 1. 3. Severe sepsis As noted above, potential etiologies include lower extremity cellulitis, urinary tract infection and possible pulmonary infectious process. We will plan to continue broad-spectrum antibiotics for now. Please note that the patient was not volume resuscitated per sepsis guideline protocol, due to the concern for underlying decompensated heart failure. 4. Incidental note of right orbital mass The patient's family was made aware of these radiographic findings. At the current time, they are not wishing to pursue any additional workup. 5. Super morbid obesity/diabetes/medical noncompliance/hypertension/depression/gout/GERD Complicates care, management, recovery and prognosis. Likely okay to continue home medications for now. Recommend Accu-Cheks and sliding scale coverage every 6 hours. TIME: 45 minutes of critical care time, independent of procedures, was spent addressing the patient's acute respiratory failure, encephalopathy, sepsis, orbital mass, review of all data and collaboration with the care team. ([id number]) Code Visit 9xxxx: [id number] Critical care first hour
--- NOTE | 2018-04-22 08:18 | RAD_ITS ---
STUDY: X-RAY CHEST REASON FOR EXAM: Male, 62 years old. Shortness of breath TECHNIQUE: Single AP portable view of the chest. COMPARISON: April 21, 2018 chest x-ray FINDINGS: There is an endotracheal tube present barely seen that may be 5 cm above the lizette. An NG tube is present the tip is not visualized. There is near opacification of the right greater than left lungs allowing for hyperinflation of the lungs and severe cardiomegaly. There is severe cardiac enlargement. Normal mediastinum and jb. Normal visualized pulmonary arteries. Normal visualized aortic arch and descending thoracic aorta. Normal visualized thoracic spine. Normal visualized ribs, clavicles, and shoulders. There is no demonstrated abnormality of the visualized soft tissue structures of the upper abdomen. RAD/Chest 1 View (Portable) IMPRESSION: Severe cardiomegaly worsening bilateral effusions. Endotracheal tube is high severe advanced 2 cm. The tip of the NG tube is not visualized and should be clarified. Electronically Signed: Nichole Cordoba MD at 14:48 EDT Tel , Service support ,
--- NOTE | 2018-04-22 08:41 | PCM.PN.HOSP ---
Patient Problems: Active and Suspected Problems Acute and chronic respiratory failure with hypercapnia (Acute) Subjective: Patient is on mechanical ventilator. On IV sedation. Clinically, no fever Vitals/I&O's: Vital Signs Temp Pulse Resp BP Pulse Ox 97.4 F L 98 13 124/63 H 98 04/22/18 07:00 04/22/18 07:00 04/22/18 07:00 04/22/18 07:00 04/22/18 07:00 Oxygen Flow Rate (L/min) 6 Oxygen Delivery Method Mechanical Ventilator Weight: 573 lb 3.23 oz Body Mass Index (BMI) 77.7 Intake and Output for Last 24 Hours 04/20/18 04/21/18 04/22/18 23:59 23:59 23:59 Intake Total 536 / 536 395 / 395 Output Total 850 / 850 850 / 850 Balance -314 / -314 -455 / -455 General: - - Sedated. HEENT: Atraumatic, PERRLA, EOMI, Normocephalic Oral: - - OT and NG tube Neck: Supple, No JVD Lungs: Clear to auscultation, Diminished, Rales, - - Intubated Cardiovascular: Regular rate, Normal S1, Normal S2, No murmurs Abdomen: Soft, Non Tender, - - Morbid fat abdomen. Hard to examine Extremities: Edema, - - Bilateral lymphangitis and soft tissue hypertrophy and hyperplasia Skin: Rash Present - Right lower extremity erythematous Musculoskeletal: Arthritic Changes, Muscle Wasting Laboratory Results 04/21/18 11:14: WBC Cancelled, Corrected WBC Cancelled, RBC Cancelled, Hgb Cancelled, Hct Cancelled, MCV Cancelled, MCH Cancelled, MCHC Cancelled, RDW Cancelled, RDW Differential Cancelled, Plt Count Cancelled, MPV Cancelled, Immature Gran % (Auto) Cancelled, Neut % (Auto) Cancelled, Lymph % (Auto) Cancelled, [place] % (Auto) Cancelled, Eos % (Auto) Cancelled, Baso % (Auto) Cancelled, Immature Gran # (Auto) Cancelled, Absolute Neuts (auto) Cancelled, Absolute Lymphs (auto) Cancelled, Absolute Monos (auto) Cancelled, Total Counted Cancelled, Neutrophils % (Manual) Cancelled, Band Neutrophils % Cancelled, Lymphocytes % (Manual) Cancelled, Monocytes % (Manual) Cancelled, Eosinophils % (Manual) Cancelled, Basophils % (Manual) Cancelled, Metamyelocytes % Cancelled, Myelocytes % Cancelled, Promyelocytes % Cancelled, Blast Cells % Cancelled, Plasma Cell % (Manual) Cancelled, Other Cells % Cancelled, Lymphocytes # Cancelled, Nucleated RBCs/100 WBC Cancelled, Differential Comment Cancelled, Diff Path Review Cancelled, Hypersegmented Neuts Cancelled, Atypical Lymphocytes Cancelled, Reactive Lymphocytes Cancelled, Smudge Cells Cancelled, Eosinophilia # Cancelled, Basophilia # Cancelled, Toxic Granulation Cancelled, Dohle Bodies Cancelled, Ruperto Rods Cancelled, Platelet Estimate Cancelled, Plt Morphology Comment Cancelled, RBC Morphology Cancelled, Polychromasia Cancelled, Hypochromasia Cancelled, Poikilocytosis Cancelled, Basophilic Stippling Cancelled, Anisocytosis Cancelled, Microcytosis Cancelled, Macrocytosis Cancelled, Spherocytes Cancelled, Sickle Cells Cancelled, Target Cells Cancelled, Tear Drop Cells Cancelled, Ovalocytes Cancelled, Stomatocytes Cancelled, Dawkins-[place] Bodies Cancelled, [place] Cells Cancelled, Bite Cells Cancelled, Acanthocytes (Spur) Cancelled, Rouleaux Cancelled, Schistocytes Cancelled 04/21/18 11:14: Sodium 134 L, Potassium 5.2 H, Chloride 98, Carbon Dioxide 33.0 H, Anion Gap 3 L, BUN 23 H, Creatinine 1.25, Estim Creat Clear Calc 0.00, Est GFR (MDRD) Af Amer 75, Est GFR (MDRD) Non-Af 62, BUN/Creatinine Ratio 18.4, Glucose 91, Calcium 8.9, Troponin I 0.032 04/21/18 11:14: Lactic Acid 3.6 H 04/21/18 11:21: Specimen Type ART, Sample Site L Brachial, pH 7.30 L, Bicarbonate Actual 30.9 H, POC Total CO2 33, Base Excess 5 H, O2 Saturation 94 L, ABG pCO2 62.5 H, ABG pO2 79, O2 Delivery Device Nasal Can, Liter Flow 5.0, Blood Gas Notified Whom ED , Blood Gas Notified Time 1115 04/21/18 11:35: Urine Color Yellow, Urine Clarity Sl. Cloudy, Urine pH 5.0, Ur Specific [place] 1.025, Urine Protein 100 H, Urine Glucose (UA) Normal, Urine Ketones 15 H, Urine Occult Blood 10 H, Urine Nitrite Positive H, Urine Bilirubin 3 H, Urine Urobilinogen 8 H, Ur Leukocyte Esterase 25 H, Urine RBC 0-5 SEEN, Urine WBC 0-5 SEEN, Ur Squamous Epith Cells 0 SEEN, Urine Bacteria 1+, Urine Mucus 0 SEEN 04/21/18 12:20: WBC 9.1, RBC 3.56 L, Hgb 9.9 L, Hct 33.3 L, MCV 93.5, MCH 27.8, MCHC 29.7 L, RDW 19.9 H, RDW Differential 65.2 H, Plt Count 126 L, MPV 10.4, Immature Gran % (Auto) 0.200, Neut % (Auto) 90.3 H, Lymph % (Auto) 5.6 L, [place] % (Auto) 3.7, Eos % (Auto) 0.2, Baso % (Auto) 0.0, Absolute Neuts (auto) 8.3 H, Absolute Lymphs (auto) 0.51 L, Total Counted Not Reportable 04/21/18 12:20: B-Natriuretic Peptide 716.7 H 04/21/18 13:39: Specimen Type ART, Sample Site R Radial, pH 7.24 L, Bicarbonate Actual 31.9 H, POC Total CO2 34, Base Excess 4 H, O2 Saturation 99, O2 % 50, ABG pCO2 74.5 H*, ABG pO2 149 H, Mart Test NA, Respiration Rate 12, O2 Delivery Device Bi / C PAP, EPAP 8, IPAP 25, Blood Gas Notified Whom ED , Blood Gas Notified Time 1335 04/21/18 16:10: Lactic Acid Cancelled 04/21/18 16:21: Specimen Type ART, Sample Site R Radial, pH 7.28 L, Bicarbonate Actual 30.8 H, POC Total CO2 33, Base Excess 4 H, O2 Saturation 94 L, O2 % 50, ABG pCO2 65.2 H, ABG pO2 80, Mart Test POS, Respiration Rate 12, O2 Delivery Device Vent, Vent Mode A-C, Tidal Volume 450, POC PEEP 8, Blood Gas Notified Whom ED , Blood Gas Notified Time 1610 04/21/18 17:30: Lactic Acid Cancelled 04/21/18 18:33: Lactic Acid 5.3 H* 04/21/18 21:10: Lactic Acid 4.3 H* 04/22/18 05:36: WBC 15.5 H, RBC 5.09, Hgb 14.1, Hct 46.0, MCV 90.4, MCH 27.7, MCHC 30.7 L, RDW 20.1 H, RDW Differential 64.8 H, Plt Count 132 L, MPV 10.8, Differential Comment SCANNED 04/22/18 05:36: Sodium 136, Potassium 4.6, Chloride 101, Carbon Dioxide 27.0, Anion Gap 8, BUN 23 H, Creatinine 1.17, Estim Creat Clear Calc 77.24, Est GFR (MDRD) Af Amer 81, Est GFR (MDRD) Non-Af 67, BUN/Creatinine Ratio 19.7, Glucose 73 L, Calcium 8.2 L 04/22/18 06:19: POC Glucose 64 L Current Medications Albuterol/Ipratropium (Duoneb) 3 ml INHALATION Q6H.RT [facility] Last Admin: 04/22/18 06:25 Dose: 3 ml Allopurinol (Zyloprim) 300 mg GT QHS [facility] Last Admin: 04/21/18 22:54 Dose: 300 mg Atenolol (Tenormin (Beta Mckinley)) 50 mg GT BID [facility] Last Admin: 04/21/18 22:54 Dose: 50 mg Bupropion HCl (Wellbutrin Xl) 300 mg PO DAILY [facility] Chlorhexidine Gluconate () 15 ml PO BID [facility] Last Admin: 04/21/18 22:54 Dose: 15 ml Chlorhexidine Gluconate () 1 each TOPICAL DAILY [facility] Last Admin: 04/22/18 05:46 Dose: 1 each Dextrose (D50w Syringe) 0 gm IV X1 PRN; Protocol PRN Reason: Hypoglycemia Last Admin: 04/22/18 07:06 Dose: 12.5 gm Famotidine (Pepcid) 20 mg PO BID [facility] Furosemide (Lasix) 40 mg IV Q8 [facility] Last Admin: 04/22/18 05:46 Dose: 40 mg Glucagon () 1 mg IM .X1 PRN PRN Reason: Hypoglycemia Heparin Sodium (Porcine) (Heparin Na) 5,000 unit SC Q8 [facility] Last Admin: 04/22/18 07:05 Dose: 5,000 unit Propofol (Diprivan) 1,000 mg in 100 mls @ 8.464 mls/hr CONT INF .[id number] [facility]; Protocol Last Admin: 04/22/18 05:47 Dose: 8.464 mls/hr Sodium Chloride () 250 mls @ 15 mls/hr IV .[id number] PRN PRN Reason: SALINE FLUSH Last Admin: 04/21/18 20:54 Dose: 15 mls/hr Sodium Chloride () 250 mls @ 15 mls/hr IV .[id number] PRN PRN Reason: SALINE FLUSH Fentanyl () 100 mls @ 5 mls/hr IV .Q20H [facility]; Protocol Last Admin: 04/21/18 20:53 Dose: 5 mls/hr Piperacillin Sod/Tazobactam Sod (Zosyn) 3.375 gm in 50 mls @ 12.5 mls/hr IV Q8 [facility] Piperacillin Sod/Tazobactam Sod (Zosyn) 3.375 gm in 50 mls @ 100 mls/hr IV X1 ONE Stop: 04/22/18 09:29 Influenza Virus Vaccine Quadrival (Fluarix/Fluzone) 0.5 ml IM .ONCE ONE Stop: 04/22/18 10:01 Magnesium Hydroxide (Milk Of Magnesia) 30 ml GT DAILY PRN PRN PRN Reason: Constipation Nystatin (Mycostatin Powder) 1 applic TOPICAL BID [facility]; Protocol Sodium Chloride () 5 - 30 ml IV UD PRN PRN Reason: SALINE FLUSH Last Admin: 04/22/18 07:06 Dose: 10 ml Medical Necessity - Tobacco Use Smoking Status: Never smoker Assessment/Plan All Active Problems Acute and chronic respiratory failure with hypercapnia (Acute) Cellulitis, leg (Resolved) Hyperkalemia (Acute) HAY (acute kidney injury) (Acute) Cellulitis (Resolved) There is a 62-year-old male with history of super morbid obesity type 2 diabetes, bedbound, longterm resident for altered mental status, confusion and lethargy and somnolent with slurred speech, dysarthria from ER. In ED, ABG showed hypercapnic and slightly acidotic pH 7.28. Initially, patient was put on BiPAP but there was no improvement clinically and on repeat ABG, thereafter patient was intubated. Patient has chronic venous stasis, lymphedema scrotal edema. Currently patient is sedated on propofol and fentanyl. 1. Acute encephalopathy, most probably metabolic secondary to hypercapnia/CO2 narcosis: Intubated on mechanical ventilator. 2. Acute on chronic hypoxic and hypercapnic combined respiratory failure. This appears to be multifactorial including obstructive sleep apnea and perhaps obesity alveolar hypoventilation syndrome and pulmonary hypertension. Suspect that there may be superimposed pulmonary edema from left ventricular diastolic failure. ProBNP is elevated. Patient is diuresed with IV Lasix. 2D echo is ordered. Rest as per clinical psychology teacher. 3. Severe sepsis, exact etiology unclear but probably right lower extremity cellulitis. Lactic acid was 5.3, 4.3. Blood cultures and urine cultures are pending. Patient initially was started on IV cefazolin and doxycycline to cover Streptococcus pyogenous and MRSA but later on antibiotic spectrum was broadened to IV Zosyn. Chest x-ray is suboptimal quality because of morbid obesity and habitus. Wound care nurse consult 4. Super morbid obesity. DVT prophylaxis heparin 5000 units twice daily Laboratory Results 04/21/18 16:21: Specimen Type ART, Sample Site R Radial, pH 7.28 L, Bicarbonate Actual 30.8 H, POC Total CO2 33, Base Excess 4 H, O2 Saturation 94 L, O2 % 50, ABG pCO2 65.2 H, ABG pO2 80, Mart Test POS, Respiration Rate 12, O2 Delivery Device Vent, Vent Mode A-C, Tidal Volume 450, POC PEEP 8, Blood Gas Notified Whom ED MD, Blood Gas Notified Time 1610 04/21/18 17:30: Lactic Acid Cancelled 04/21/18 18:33: Lactic Acid 5.3 H* 04/21/18 21:10: Lactic Acid 4.3 H* 04/22/18 05:36: WBC 15.5 H, RBC 5.09, Hgb 14.1, Hct 46.0, MCV 90.4, MCH 27.7, MCHC 30.7 L, RDW 20.1 H, RDW Differential 64.8 H, Plt Count 132 L, MPV 10.8, Differential Comment SCANNED 04/22/18 05:36: Sodium 136, Potassium 4.6, Chloride 101, Carbon Dioxide 27.0, Anion Gap 8, BUN 23 H, Creatinine 1.17, Estim Creat Clear Calc 77.24, Est GFR (MDRD) Af Amer 81, Est GFR (MDRD) Non-Af 67, BUN/Creatinine Ratio 19.7, Glucose 73 L, Calcium 8.2 L 04/22/18 06:19: POC Glucose 64 L Code Visit Inpatient E&M: 98766 Subs Hosp L3
--- NOTE | 2018-04-22 08:49 | PN_ITS ---
Patient Problems: Active and Suspected Problems Acute and chronic respiratory failure with hypercapnia (Acute) Subjective: Patient is on mechanical ventilator. On IV sedation. Clinically, no fever Vitals/I&O's: Vital Signs Temp Pulse Resp BP Pulse Ox 97.4 F L 98 13 124/63 H 98 04/22/18 07:00 04/22/18 07:00 04/22/18 07:00 04/22/18 07:00 04/22/18 07:00 Oxygen Flow Rate (L/min) 6 Oxygen Delivery Method Mechanical Ventilator Weight: 573 lb 3.23 oz Body Mass Index (BMI) 77.7 Intake and Output for Last 24 Hours 04/20/18 04/21/18 04/22/18 23:59 23:59 23:59 Intake Total 536 / 536 395 / 395 Output Total 850 / 850 850 / 850 Balance -314 / -314 -455 / -455 General: - - Sedated. HEENT: Atraumatic, PERRLA, EOMI, Normocephalic Oral: - - OT and NG tube Neck: Supple, No JVD Lungs: Clear to auscultation, Diminished, Rales, - - Intubated Cardiovascular: Regular rate, Normal S1, Normal S2, No murmurs Abdomen: Soft, Non Tender, - - Morbid fat abdomen. Hard to examine Extremities: Edema, - - Bilateral lymphangitis and soft tissue hypertrophy and h yperplasia Skin: Rash Present - Right lower extremity erythematous Musculoskeletal: Arthritic Changes, Muscle Wasting Laboratory Results 04/21/18 11:14: WBC Cancelled, Corrected WBC Cancelled, RBC Cancelled, Hgb Cancelled, Hct Cancelled, MCV Cancelled, MCH Cancelled, MCHC Cancelled, RDW Cancelled, RDW Differential Cancelled, Plt Count Cancelled, MPV Cancelled, Immature Gran % (Auto) Cancelled, Neut % (Auto) Cancelled, Lymph % (Auto) Cancelled, [place] % (Auto) Cancelled, Eos % (Auto) Cancelled, Baso % (Auto) Cancelled, Immature Gran # (Auto) Cancelled, Absolute Neuts (auto) Cancelled, Absolute Lymphs (auto) Cancelled, Absolute Monos (auto) Cancelled, Total Counted Cancelled, Neutrophils % (Manual) Cancelled, Band Neutrophils % Cancelled, Lymphocytes % (Manual) Cancelled, Monocytes % (Manual) Cancelled, Eosinophils % (Manual) Cancelled, Basophils % (Manual) Cancelled, Metamyelocytes % Cancelled, Myelocytes % Cancelled, Promyelocytes % Cancelled, Blast Cells % Cancelled, Plasma Cell % (Manual) Cancelled, Other Cells % Cancelled, Lymphocytes # Cancelled, Nucleated RBCs/100 WBC Cancelled, Differential Comment Cancelled, Diff Path Review Cancelled, Hypersegmented Neuts Cancelled, Atypical Lymphocytes Cancelled, Reactive Lymphocytes Cancelled, Smudge Cells Cancelled, Eosinophilia # Cancelled, Basophilia # Cancelled, Toxic Granulation Cancelled, Dohle Bodies Cancelled, Ruperto Rods Cancelled, Platelet Estimate Cancelled, Plt Morphology Comment Cancelled, RBC Morphology Cancelled, Polychromasia Cancelled, Hypoch romasia Cancelled, Poikilocytosis Cancelled, Basophilic Stippling Cancelled, Anisocytosis Cancelled, Microcytosis Cancelled, Macrocytosis Cancelled, Spherocytes Cancelled, Sickle Cells Cancelled, Target Cells Cancelled, Tear Drop Cells Cancelled, Ovalocytes Cancelled, Stomatocytes Cancelled, [place] Bodies Cancelled, [place] Cells Cancelled, Bite Cells Cancelled, Acanthocytes (Spur) Cancelled, Rouleaux Cancelled, Schistocytes Cancelled 04/21/18 11:14: Sodium 134 L, Potassium 5.2 H, Chloride 98, Carbon Dioxide 33.0 H, Anion Gap 3 L, BUN 23 H, Creatinine 1.25, Estim Creat Clear Calc 0.00, Est GFR (MDRD) Af Amer 75, Est GFR (MDRD) Non-Af 62, BUN/Creatinine Ratio 18.4, Glucose 91, Calcium 8.9, Troponin I 0.032 04/21/18 11:14: Lactic Acid 3.6 H 04/21/18 11:21: Specimen Type ART, Sample Site L Brachial, pH 7.30 L, Bicarbonate Actual 30.9 H, POC Total CO2 33, Base Excess 5 H, O2 Saturation 94 L , ABG pCO2 62.5 H, ABG pO2 79, O2 Delivery Device Nasal Can, Liter Flow 5.0, Blood Gas Notified Whom ED , Blood Gas Notified Time 1115 04/21/18 11:35: Urine Color Yellow, Urine Clarity Sl. Cloudy, Urine pH 5.0, Ur Specific [place] 1.025, Urine Protein 100 H, Urine Glucose (UA) Normal, Urine Ketones 15 H, Urine Occult Blood 10 H, Urine Nitrite Positive H, Urine Bilirubin 3 H, Urine Urobilinogen 8 H, Ur Leukocyte Esterase 25 H, Urine RBC 0-5 SEEN, Urine WBC 0-5 SEEN, Ur Squamous Epith Cells 0 SEEN, Urine Bacteria 1+, Urine Mucus 0 SEEN 04/21/18 12:20: WBC 9.1, RBC 3.56 L, Hgb 9.9 L, Hct 33.3 L, MCV 93.5, MCH 27.8, MCHC 29.7 L, RDW 19.9 H, RDW Differential 65.2 H, Plt Count 126 L, MPV 10.4, Immature Gran % (Auto) 0.200, Neut % (Auto) 90.3 H, Lymph % (Auto) 5.6 L, [place] % (Auto) 3.7, Eos % (Auto) 0.2, Baso % (Auto) 0.0, Absolute Neuts (auto) 8.3 H, Absolute Lymphs (auto) 0.51 L, Total Counted Not Reportable 04/21/18 12:20: B-Natriuretic Peptide 716.7 H 04/21/18 13:39: Specimen Type ART, Sample Site R Radial, pH 7.24 L, Bicarbonate Actual 31.9 H, POC Total CO2 34, Base Excess 4 H, O2 Saturation 99, O2 % 50, ABG pCO2 74.5 H*, ABG pO2 149 H, Mart Test NA, Respiration Rate 12, O2 Delivery Device Bi / C PAP, EPAP 8, IPAP 25, Blood Gas Notified Whom ED , Blood Gas Notified Time 1335 04/21/18 16:10: Lactic Acid Cancelled 04/21/18 16:21: Specimen Type ART, Sample Site R Radial, pH 7.28 L, Bicarbonate Actual 30.8 H, POC Total CO2 33, Base Excess 4 H, O2 Saturation 94 L, O2 % 50, ABG pCO2 65.2 H, ABG pO2 80, Mart Test POS, Respiration Rate 12, O2 Delivery Device Vent, Vent Mode A-C, Tidal Volume 450, POC PEEP 8, Blood Gas Notified Whom ED , Blood Gas Notified Time 1610 04/21/18 17:30: Lactic Acid Cancelled 04/21/18 18:33: Lactic Acid 5.3 H* 04/21/18 21:10: Lactic Acid 4.3 H* 04/22/18 05:36: WBC 15.5 H, RBC 5.09, Hgb 14.1, Hct 46.0, MCV 90.4, MCH 27.7, MCHC 30.7 L, RDW 20.1 H, RDW Differential 64.8 H, Plt Count 132 L, MPV 10.8, Differential Comment SCANNED 04/22/18 05:36: Sodium 136, Potassium 4.6, Chloride 101, Carbon Dioxide 27.0, Anion Gap 8, BUN 23 H, Creatinine 1.17, Estim Creat Clear Calc 77.24, Est GFR (MDRD) Af Amer 81, Est GFR (MDRD) Non-Af 67, BUN/Creatinine Ratio 19.7, Glucose 73 L, Calcium 8.2 L 04/22/18 06:19: POC Glucose 64 L Current Medications Albuterol/Ipratropium (Duoneb) 3 ml INHALATION Q6H.RT [facility] Last Admin: 04/22/18 06:25 Dose: 3 ml Allopurinol (Zyloprim) 300 mg GT QHS [facility] Last Admin: 04/21/18 22:54 Dose: 300 mg Atenolol (Tenormin (Beta Mckinley)) 50 mg GT BID [facility] Last Admin: 04/21/18 22:54 Dose: 50 mg Bupropion HCl (Wellbutrin Xl) 300 mg PO DAILY [facility] Chlorhexidine Gluconate () 15 ml PO BID [facility] Last Admin: 04/21/18 22:54 Dose: 15 ml Chlorhexidine Gluconate () 1 each TOPICAL DAILY [facility] Last Admin: 04/22/18 05:46 Dose: 1 each Dextrose (D50w Syringe) 0 gm IV X1 PRN; Protocol PRN Reason: Hypoglycemia Last Admin: 04/22/18 07:06 Dose: 12.5 gm Famotidine (Pepcid) 20 mg PO BID [facility] Furosemide (Lasix) 40 mg IV Q8 [facility] Last Admin: 04/22/18 05:46 Dose: 40 mg Glucagon () 1 mg IM .X1 PRN PRN Reason: Hypoglycemia Heparin Sodium (Porcine) (Heparin Na) 5,000 unit SC Q8 [facility] Last Admin: 04/22/18 07:05 Dose: 5,000 unit Propofol (Diprivan) 1,000 mg in 100 mls @ 8.464 mls/hr CONT INF .[id number] [facility]; Protocol Last Admin: 04/22/18 05:47 Dose: 8.464 mls/hr Sodium Chloride () 250 mls @ 15 mls/hr IV .[id number] PRN PRN Reason: SALINE FLUSH Last Admin: 04/21/18 20:54 Dose: 15 mls/hr Sodium Chloride () 250 mls @ 15 mls/hr IV .[id number] PRN PRN Reason: SALINE FLUSH Fentanyl () 100 mls @ 5 mls/hr IV .Q20H [facility]; Protocol Last Admin: 04/21/18 20:53 Dose: 5 mls/hr Piperacillin Sod/Tazobactam Sod (Zosyn) 3.375 gm in 50 mls @ 12.5 mls/hr IV Q8 [facility] Piperacillin Sod/Tazobactam Sod (Zosyn) 3.375 gm in 50 mls @ 100 mls/hr IV X1 ONE Stop: 04/22/18 09:29 Influenza Virus Vaccine Quadrival (Fluarix/Fluzone) 0.5 ml IM .ONCE ONE Stop: 04/22/18 10:01 Magnesium Hydroxide (Milk Of Magnesia) 30 ml GT DAILY PRN PRN PRN Reason: Constipation Nystatin (Mycostatin Powder) 1 applic TOPICAL BID [facility]; Protocol Sodium Chloride () 5 - 30 ml IV UD PRN PRN Reason: SALINE FLUSH Last Admin: 04/22/18 07:06 Dose: 10 ml Medical Necessity - Tobacco Use Smoking Status: Never smoker Assessment/Plan All Active Problems Acute and chronic respiratory failure with hypercapnia (Acute) Cellulitis, leg (Resolved) Hyperkalemia (Acute) HAY (acute kidney injury) (Acute) Cellulitis (Resolved) There is a 62-year-old male with history of super morbid obesity type 2 diabetes, bedbound, senior living resident for altered mental status, confusion and lethargy and somnolent with slurred speech, dysarthria from ER. In ED, ABG showed hypercapnic and slightly acidotic pH 7.28. Initially, patient was put on BiPAP but there was no improvement clinically and on repeat ABG, thereafter patient was intubated. Patient has chronic venous stasis, lymphedema scrotal edema. Currently patient is sedated on propofol and fentanyl. 1. Acute encephalopathy, most probably metabolic secondary to hypercapnia/CO2 narcosis: Intubated on mechanical ventilator. 2. Acute on chronic hypoxic and hypercapnic combined respiratory failure. This appears to be multifactorial including obstructive sleep apnea and perhaps obesity alveolar hypoventilation syndrome and pulmonary hypertension. Suspect that there may be superimposed pulmonary edema from left ventricular diastolic failure. ProBNP is elevated. Patient is diuresed with IV Lasix. 2D echo is ordered. Rest as per treating plant supervisor. 3. Severe sepsis, exact etiology unclear but probably right lower extremity cellulitis. Lactic acid was 5.3, 4.3. Blood cultures and urine cultures are pending. Patient initially was started on IV cefazolin and doxycycline to cover Streptococcus pyogenous and MRSA but later on antibiotic spectrum was broadened to IV Zosyn. Chest x-ray is suboptimal quality because of morbid obesity and habitus. Wound care nurse consult 4. Super morbid obesity. DVT prophylaxis heparin 5000 units twice daily Laboratory Results 04/21/18 16:21: Specimen Type ART, Sample Site R Radial, pH 7.28 L, Bicarbonate Actual 30.8 H, POC Total CO2 33, Base Excess 4 H, O2 Saturation 94 L, O2 % 50, ABG pCO2 65.2 H, ABG pO2 80, Mart Test POS, Respiration Rate 12, O2 Delivery Device Vent, Vent Mode A-C, Tidal Volume 450, POC PEEP 8, Blood Gas Notified Whom ED , Blood Gas Notified Time 1610 04/21/18 17:30: Lactic Acid Cancelled 04/21/18 18:33: Lactic Acid 5.3 H* 04/21/18 21:10: Lactic Acid 4.3 H* 04/22/18 05:36: WBC 15.5 H, RBC 5.09, Hgb 14.1, Hct 46.0, MCV 90.4, MCH 27.7, MCHC 30.7 L, RDW 20.1 H, RDW Differential 64.8 H, Plt Count 132 L, MPV 10.8, Differential Comment SCANNED 04/22/18 05:36: Sodium 136, Potassium 4.6, Chloride 101, Carbon Dioxide 27.0, Anion Gap 8, BUN 23 H, Creatinine 1.17, Estim Creat Clear Calc 77.24, Est GFR (MDRD) Af Amer 81, Est GFR (MDRD) Non-Af 67, BUN/Creatinine Ratio 19.7, Glucose 73 L, Calcium 8.2 L 04/22/18 06:19: POC Glucose 64 L Code Visit Inpatient E&M: [id number] Subs Hosp L3
[2018-04-22] MEDS: Famotidine 20 MG Tablet PO (10:09)
[2018-04-22] MEDS: buPROPion (XL) 300 MG TABLET.XL PO (10:10)
[2018-04-22] MEDS: Atenolol 50 MG Tablet GT (10:11)
[2018-04-22] MEDS: Chlorhexidine 15 ML PO ×2 (10:11→21:44)
[2018-04-22] MEDS: Nystatin Powder 15gm Bottle 1 APPLIC TOPICAL ×2 (10:16→21:43)
[2018-04-22] MEDS: fentaNYL drip 100 ML 5 MCG IV (10:57)
[2018-04-22 12:11] LABS: Bedside Glucose 72 mg/dL (70-110)
--- NOTE | 2018-04-22 13:17 | RAD_ITS ---
STUDY: X-RAY CHEST REASON FOR EXAM: Male, 62 years old. PICC line placement. TECHNIQUE: Single AP portable view of the chest. COMPARISON: 04/22/2018 at 9:02 AM. FINDINGS: Exam is markedly limited by patient's size and underexposure. Right PICC line appears to terminate in the area of the cavoatrial junction. Endotracheal tube terminates 4.3 cm above the lizette. Nasogastric tube appears to enter the upper stomach. Overall probably improved aeration since radiograph of earlier today. No other definite changes. RAD/CXR for Line Placement IMPRESSION: Extremely limited by patient's size and underexposure. Right PICC line appears to terminate in the area of the cavoatrial junction. Electronically Signed: Hiram Bob MD at 14:31 EDT , Service support ,
[2018-04-22 13:56] LABS: M R Staph aureus DNA By PCR Negative (Negative); Probe Check PASS; Specimen Processing Control PASS
[2018-04-22] MEDS: Vital AF 1.2 Cal Liquid 1,000 ML 20 ML GT (18:43)
[2018-04-22] MEDS: Famotidine 20 MG Tablet GT (21:43)
[2018-04-22] MEDS: Allopurinol 300 MG Tablet GT (21:43)
[2018-04-22] MEDS: APIXABAN 5 MG TABLET GT (21:43)
[2018-04-22] MEDS: Piperacil/Tazobactam 3.375 GM/50 ML ML IV (21:43)
[2018-04-23] VITALS (42 sets, daily range): BP systolic 87–131; BP diastolic 35–87; PULSE 80–106; RESP 14–23; TEMP 36.8–37; O2SAT 95–100
[2018-04-23] MEDS: Dextrose 50%-Water 25 GM/50 ML DISP.SYRIN IV (00:09)
[2018-04-23] MEDS: CHLORHEXIDINE GLUC 2% CLOTH 1 EACH TOWELETTE TOPICAL (01:05)
[2018-04-23 01:41] LABS: Bedside Glucose 60 mg/dL (70-110)
[2018-04-23 01:41] LABS: Bedside Glucose 60 mg/dL (70-110)
[2018-04-23 01:41] LABS: Bedside Glucose 58 mg/dL (70-110)
[2018-04-23 01:45] LABS: Bedside Glucose 74 mg/dL (70-110)
[2018-04-23 04:31] LABS: Absolute Lymphocyte Count 0.72 X10^3/ul (0.83-4.51); Absolute Neutrophil Count 8.7 X10^3/uL (2.0-7.7); Basophil# 0.02 X10^3/uL; Basophil% 0.2 % (0-1); Eosinophil# 0.07 X10^3/uL; Eosinophils% 0.7 % (0-5); Hematocrit 40.2 % (40-54); Hemoglobin 12.6 g/dl (13.0-16.5); Lymphocyte # 0.72 X10^3/ul (4.0); Lymphocyte % 7.1 % (19-41); Mean Corp Hgb Conc 31.3 g/gl (32-36); Mean Corpuscular Hgb 27.9 pg (27.0-32.0); Mean Corpuscular Volume 88.9 fL (80-94); Mean Platelet Vol. 9.8 fl (6.2-12.0); Monocyte# 0.61 X10^3/uL; Neutrophil # 8.67 X10^3/uL (2.7-7.7); Neutrophil % 85.8 % (47-70); Platelet Count 133 K/mm3 (150-450); RBC Distribution Width CV 19.9 % (11.6-14.6); RBC Distribution Width SD 62.8 fl (35.1-43.9); Red Blood Count 4.52 M/mm3 (4.6-6.2); White Blood Count 10.1 K/mm3 (4.4-11.0)
[2018-04-23 04:46] LABS: POSITIVE COUNT NO; POSITIVE DIFFERENTIAL NO; POSITIVE MORPHOLOGY NO
[2018-04-23 04:47] LABS: Anion Gap 6 (5-15); BUN 22 mg/dL (7-18); BUN/Creat Ratio 24.6 RATIO (10-20); Chloride 101 mmol/L (98-107); EST Glomerular Filtration Rate 91 mL/min (>60); Est Glom Filt Rate - Afr Amer 110 mL/min (>60); Estimated Creatinine Clearance 100.41 ml/min; Glucose 101 mg/dL (74-106); Sodium Level 141 mmol/L (136-145)
[2018-04-23] MEDS: Piperacil/Tazobactam 3.375 GM/50 ML ML IV ×3 (05:24→21:43)
[2018-04-23 06:10] LABS: Bedside Glucose 107 mg/dL (70-110)
[2018-04-23] MEDS: Ipratropium/Albuterol Sulfate 3 ML AMPUL.NEB INHALATION ×3 (06:31→19:30)
--- NOTE | 2018-04-23 06:55 | PN_ITS ---
Subjective: The patient was seen and examined at the bedside this morning. Events from the last 24 hours have been reviewed. The patient is currently afebrile, hemodynamically stable and maintaining appropriate oxygen saturations with an FiO2 requirement of 40%. While the patient did tolerate a spontaneous breathing trial this morning, he was noted to have suboptimal tidal volumes in the 200s and would not perform a NIF maneuver per RT. His leukocytosis has resolved. The patient was overall net -696 mL's yesterday. Blood sugars were noted to be low this morning by nursing staff. Objective: The patient's most recent lab work, culture data and imaging studies have all been personally reviewed. Strep and urine Legionella antigens were both negative. Blood cultures are pending. Preliminary urine culture revealed a gram-negative dante. Sputum Gram stain and culture pending. Surface echocardiogram revealed evidence of a severely dilated left ventricle with an ejection fraction of 20-25% with severe global LV systolic dysfunction. There was also evidence of a severely dilated RV with moderate global RV systolic dy sfunction. Pulmonary artery systolic pressure was estimated to be 32 mmHg. General: - - Remains intubated and mechanically ventilated. Super morbidly obese HEENT: Atraumatic, PERRLA, Normocephalic Oral: No Gingival or Mucosal Lesions/ Ulcerations, - - Endotracheal and OG tubes remain in place. Neck: Supple, No Nodes, Trachea Midline, - - Large neck circumference with redundant soft tissue. Lungs: No rhonchi, No wheeze, No rales, Diminished Cardiovascular: Regular rate, Regular Rhythm, Normal S1, Normal S2, No murmurs, - - Distant heart tones secondary to body habitus. Abdomen: Bowel Sounds Present, Soft, Non Tender, Obese Extremities: No clubbing, No cyanosis, - - Severe bilateral lower externally lymphedema with associated hyperkeratosis and erythema, unchanged from previous. Skin: - - As noted above Musculoskeletal: No Tenderness to Palpation of Joints or Extremities Lymphatic: No Cervical, Supraclavicular, or Inguinal Adenopathy Neurological: - - No focal neurological deficits. Sedation is currently on hold and the patient currently has a RASS of +1-2 Vital Signs Temp Pulse Resp BP Pulse Ox 98.5 F 101 H 20 H 120/87 H 97 04/23/18 06:00 04/23/18 06:00 04/23/18 06:00 04/23/18 06:00 04/23/18 06:00 Oxygen Flow Rate (L/min) 6 Oxygen Delivery Method Mechanical Ventilator Weight: 571 lb 7.01 oz Body Mass Index (BMI) 77.7 Intake and Output for Last 24 Hours 04/21/18 04/22/18 04/23/18 23:59 23:59 23:59 Intake Total 536 / 536 1942.5 / 1942.5 776.6 / 776.6 Output Total 850 / 850 2325 / 2325 250 / 250 Balance -314 / -314 -382.5 / -382.5 526.6 / 526.6 Labs (Last 48 Hours) 04/21/18 04/21/18 04/21/18 11:14 11:14 11:14 WBC Cancelled Corrected WBC Cancelled RBC Cancelled Hgb Cancelled Hct Cancelled MCV Cancelled MCH Cancelled MCHC Cancelled RDW Cancelled RDW Differential Cancelled Plt Count Cancelled MPV Cancelled Immature Gran % (Auto) Cancelled Neut % (Auto) Cancelled Lymph % (Auto) Cancelled Bee % (Auto) Cancelled Eos % (Auto) Cancelled Baso % (Auto) Cancelled Immature Gran # (Auto) Cancelled Absolute Neuts (auto) Cancelled Absolute Lymphs (auto) Cancelled Absolute Monos (auto) Cancelled Total Counted Cancelled Neutrophils % (Manual) Cancelled Band Neutrophils % Cancelled Lymphocytes % (Manual) Cancelled Monocytes % (Manual) Cancelled Eosinophils % (Manual) Cancelled Basophils % (Manual) Cancelled Metamyelocytes % Cancelled Myelocytes % Cancelled Promyelocytes % Cancelled Blast Cells % Cancelled Plasma Cell % (Manual) Cancelled Other Cells % Cancelled Lymphocytes # Cancelled Nucleated RBCs/100 WBC Cancelled Differential Comment Cancelled Diff Path Review Cancelled Hypersegmented Neuts Cancelled Atypical Lymphocytes Cancelled Reactive Lymphocytes Cancelled Smudge Cells Cancelled Eosinophilia # Cancelled Basophilia # Cancelled Toxic Granulation Cancelled Dohle Bodies Cancelled Ruperto Rods Cancelled Platelet Estimate Cancelled Plt Morphology Comment Cancelled RBC Morphology Cancelled Polychromasia Cancelled Hypochromasia Cancelled Poikilocytosis Cancelled Basophilic Stippling Cancelled Anisocytosis Cancelled Microcytosis Cancelled Macrocytosis Cancelled Spherocytes Cancelled Sickle Cells Cancelled Target Cells Cancelled Tear Drop Cells Cancelled Ovalocytes Cancelled Stomatocytes Cancelled [place] Bodies Cancelled Chalino Cells Cancelled Bite Cells Cancelled Acanthocytes (Spur) Cancelled Rouleaux Cancelled Schistocytes Cancelled Specimen Type Sample Site pH Bicarbonate Actual POC Total CO2 Base Excess O2 Saturation O2 % ABG pCO2 ABG pO2 Mart Test Respiration Rate O2 Delivery Device Liter Flow Vent Mode Tidal Volume POC PEEP EPAP IPAP Blood Gas Notified Whom Blood Gas Notified Time Sodium 134 L Potassium 5.2 H Chloride 98 Carbon Dioxide 33.0 H Anion Gap 3 L BUN 23 H Creatinine 1.25 Estim Creat Clear Calc 0.00 Est GFR (MDRD) Af Amer 75 Est GFR (MDRD) Non-Af 62 BUN/Creatinine Ratio 18.4 Glucose 91 Lactic Acid 3.6 H Calcium 8.9 Troponin I 0.032 B-Natriuretic Peptide Urine Color Urine Clarity Urine pH Ur Specific [place] Urine Protein Urine Glucose (UA) Urine Ketones Urine Occult Blood Urine Nitrite Urine Bilirubin Urine Urobilinogen Ur Leukocyte Esterase Urine RBC Urine WBC Ur Squamous Epith Cells Urine Bacteria Urine Mucus MRSA (PCR) POC Glucose 04/21/18 04/21/18 04/21/18 11:21 11:35 12:20 WBC 9.1 Corrected WBC RBC 3.56 L Hgb 9.9 L Hct 33.3 L MCV 93.5 MCH 27.8 MCHC 29.7 L RDW 19.9 H RDW Differential 65.2 H Plt Count 126 L MPV 10.4 Immature Gran % (Auto) 0.200 Neut % (Auto) 90.3 H Lymph % (Auto) 5.6 L Bee % (Auto) 3.7 Eos % (Auto) 0.2 Baso % (Auto) 0.0 Immature Gran # (Auto) Absolute Neuts (auto) 8.3 H Absolute Lymphs (auto) 0.51 L Absolute Monos (auto) Total Counted Not Reportable Neutrophils % (Manual) Band Neutrophils % Lymphocytes % (Manual) Monocytes % (Manual) Eosinophils % (Manual) Basophils % (Manual) Metamyelocytes % Myelocytes % Promyelocytes % Blast Cells % Plasma Cell % (Manual) Other Cells % Lymphocytes # Nucleated RBCs/100 WBC Differential Comment Diff Path Review Hypersegmented Neuts Atypical Lymphocytes Reactive Lymphocytes Smudge Cells Eosinophilia # Basophilia # Toxic Granulation Dohle Bodies Ruperto Rods Platelet Estimate Plt Morphology Comment RBC Morphology Polychromasia Hypochromasia Poikilocytosis Basophilic Stippling Anisocytosis Microcytosis Macrocytosis Spherocytes Sickle Cells Target Cells Tear Drop Cells Ovalocytes Stomatocytes [place] Bodies [place] Cells Bite Cells Acanthocytes (Spur) Rouleaux Schistocytes Specimen Type ART Sample Site L Brachial pH 7.30 L Bicarbonate Actual 30.9 H POC Total CO2 33 Base Excess 5 H O2 Saturation 94 L O2 % ABG pCO2 62.5 H ABG pO2 79 Mart Test Respiration Rate O2 Delivery Device Nasal Can Liter Flow 5.0 Vent Mode Tidal Volume POC PEEP EPAP IPAP Blood Gas Notified Whom ED Blood Gas Notified Time 1115 Sodium Potassium Chloride Carbon Dioxide Anion Gap BUN Creatinine Estim Creat Clear Calc Est GFR (MDRD) Af Amer Est GFR (MDRD) Non-Af BUN/Creatinine Ratio Glucose Lactic Acid Calcium Troponin I B-Natriuretic Peptide Urine Color Yellow Urine Clarity Sl. Cloudy Urine pH 5.0 Ur Specific [place] 1.025 Urine Protein 100 H Urine Glucose (UA) Normal Urine Ketones 15 H Urine Occult Blood 10 H Urine Nitrite Positive H Urine Bilirubin 3 H Urine Urobilinogen 8 H Ur Leukocyte Esterase 25 H Urine RBC 0-5 SEEN Urine WBC 0-5 SEEN Ur Squamous Epith Cells 0 SEEN Urine Bacteria 1+ Urine Mucus 0 SEEN MRSA (PCR) POC Glucose 04/21/18 04/21/18 04/21/18 12:20 13:39 16:10 WBC Corrected WBC RBC Hgb Hct MCV MCH MCHC RDW RDW Differential Plt Count MPV Immature Gran % (Auto) Neut % (Auto) Lymph % (Auto) Bee % (Auto) Eos % (Auto) Baso % (Auto) Immature Gran # (Auto) Absolute Neuts (auto) Absolute Lymphs (auto) Absolute Monos (auto) Total Counted Neutrophils % (Manual) Band Neutrophils % Lymphocytes % (Manual) Monocytes % (Manual) Eosinophils % (Manual) Basophils % (Manual) Metamyelocytes % Myelocytes % Promyelocytes % Blast Cells % Plasma Cell % (Manual) Other Cells % Lymphocytes # Nucleated RBCs/100 WBC Differential Comment Diff Path Review Hypersegmented Neuts Atypical Lymphocytes Reactive Lymphocytes Smudge Cells Eosinophilia # Basophilia # Toxic Granulation Dohle Bodies Ruperto Rods Platelet Estimate Plt Morphology Comment RBC Morphology Polychromasia Hypochromasia Poikilocytosis Basophilic Stippling Anisocytosis Microcytosis Macrocytosis Spherocytes Sickle Cells Target Cells Tear Drop Cells Ovalocytes Stomatocytes [place] Bodies [place] Cells Bite Cells Acanthocytes (Spur) Rouleaux Schistocytes Specimen Type ART Sample Site R Radial pH 7.24 L Bicarbonate Actual 31.9 H POC Total CO2 34 Base Excess 4 H O2 Saturation 99 O2 % 50 ABG pCO2 74.5 H* ABG pO2 149 H Mart Test NA Respiration Rate 12 O2 Delivery Device Bi / C PAP Liter Flow Vent Mode Tidal Volume POC PEEP EPAP 8 IPAP 25 Blood Gas Notified Whom ED Blood Gas Notified Time 1335 Sodium Potassium Chloride Carbon Dioxide Anion Gap BUN Creatinine Estim Creat Clear Calc Est GFR (MDRD) Af Amer Est GFR (MDRD) Non-Af BUN/Creatinine Ratio Glucose Lactic Acid Cancelled Calcium Troponin I B-Natriuretic Peptide 716.7 H Urine Color Urine Clarity Urine pH Ur Specific [place] Urine Protein Urine Glucose (UA) Urine Ketones Urine Occult Blood Urine Nitrite Urine Bilirubin Urine Urobilinogen Ur Leukocyte Esterase Urine RBC Urine WBC Ur Squamous Epith Cells Urine Bacteria Urine Mucus MRSA (PCR) POC Glucose 04/21/18 04/21/18 04/21/18 16:21 17:30 18:33 WBC Corrected WBC RBC Hgb Hct MCV MCH MCHC RDW RDW Differential Plt Count MPV Immature Gran % (Auto) Neut % (Auto) Lymph % (Auto) Bee % (Auto) Eos % (Auto) Baso % (Auto) Immature Gran # (Auto) Absolute Neuts (auto) Absolute Lymphs (auto) Absolute Monos (auto) Total Counted Neutrophils % (Manual) Band Neutrophils % Lymphocytes % (Manual) Monocytes % (Manual) Eosinophils % (Manual) Basophils % (Manual) Metamyelocytes % Myelocytes % Promyelocytes % Blast Cells % Plasma Cell % (Manual) Other Cells % Lymphocytes # Nucleated RBCs/100 WBC Differential Comment Diff Path Review Hypersegmented Neuts Atypical Lymphocytes Reactive Lymphocytes Smudge Cells Eosinophilia # Basophilia # Toxic Granulation Dohle Bodies Ruperto Rods Platelet Estimate Plt Morphology Comment RBC Morphology Polychromasia Hypochromasia Poikilocytosis Basophilic Stippling Anisocytosis Microcytosis Macrocytosis Spherocytes Sickle Cells Target Cells Tear Drop Cells Ovalocytes Stomatocytes [place] Bodies [place] Cells Bite Cells Acanthocytes (Spur) Rouleaux Schistocytes Specimen Type ART Sample Site R Radial pH 7.28 L Bicarbonate Actual 30.8 H POC Total CO2 33 Base Excess 4 H O2 Saturation 94 L O2 % 50 ABG pCO2 65.2 H ABG pO2 80 Mart Test POS Respiration Rate 12 O2 Delivery Device Vent Liter Flow Vent Mode A-C Tidal Volume 450 POC PEEP 8 EPAP IPAP Blood Gas Notified Whom ED Blood Gas Notified Time 1610 Sodium Potassium Chloride Carbon Dioxide Anion Gap BUN Creatinine Estim Creat Clear Calc Est GFR (MDRD) Af Amer Est GFR (MDRD) Non-Af BUN/Creatinine Ratio Glucose Lactic Acid Cancelled 5.3 H* Calcium Troponin I B-Natriuretic Peptide Urine Color Urine Clarity Urine pH Ur Specific [place] Urine Protein Urine Glucose (UA) Urine Ketones Urine Occult Blood Urine Nitrite Urine Bilirubin Urine Urobilinogen Ur Leukocyte Esterase Urine RBC Urine WBC Ur Squamous Epith Cells Urine Bacteria Urine Mucus MRSA (PCR) POC Glucose 04/21/18 04/22/18 04/22/18 21:10 05:36 05:36 WBC 15.5 H Corrected WBC RBC 5.09 Hgb 14.1 Hct 46.0 MCV 90.4 MCH 27.7 MCHC 30.7 L RDW 20.1 H RDW Differential 64.8 H Plt Count 132 L MPV 10.8 Immature Gran % (Auto) Neut % (Auto) Lymph % (Auto) Bee % (Auto) Eos % (Auto) Baso % (Auto) Immature Gran # (Auto) Absolute Neuts (auto) Absolute Lymphs (auto) Absolute Monos (auto) Total Counted Neutrophils % (Manual) Band Neutrophils % Lymphocytes % (Manual) Monocytes % (Manual) Eosinophils % (Manual) Basophils % (Manual) Metamyelocytes % Myelocytes % Promyelocytes % Blast Cells % Plasma Cell % (Manual) Other Cells % Lymphocytes # Nucleated RBCs/100 WBC Differential Comment SCANNED Diff Path Review Hypersegmented Neuts Atypical Lymphocytes Reactive Lymphocytes Smudge Cells Eosinophilia # Basophilia # Toxic Granulation Dohle Bodies Ruperto Rods Platelet Estimate Plt Morphology Comment RBC Morphology Polychromasia Hypochromasia Poikilocytosis Basophilic Stippling Anisocytosis Microcytosis Macrocytosis Spherocytes Sickle Cells Target Cells Tear Drop Cells Ovalocytes Stomatocytes [place] Bodies [place] Cells Bite Cells Acanthocytes (Spur) Rouleaux Schistocytes Specimen Type Sample Site pH Bicarbonate Actual POC Total CO2 Base Excess O2 Saturation O2 % ABG pCO2 ABG pO2 Mart Test Respiration Rate O2 Delivery Device Liter Flow Vent Mode Tidal Volume POC PEEP EPAP IPAP Blood Gas Notified Whom Blood Gas Notified Time Sodium 136 Potassium 4.6 Chloride 101 Carbon Dioxide 27.0 Anion Gap 8 BUN 23 H Creatinine 1.17 Estim Creat Clear Calc 77.24 Est GFR (MDRD) Af Amer 81 Est GFR (MDRD) Non-Af 67 BUN/Creatinine Ratio 19.7 Glucose 73 L Lactic Acid 4.3 H* Calcium 8.2 L Troponin I B-Natriuretic Peptide Urine Color Urine Clarity Urine pH Ur Specific [place] Urine Protein Urine Glucose (UA) Urine Ketones Urine Occult Blood Urine Nitrite Urine Bilirubin Urine Urobilinogen Ur Leukocyte Esterase Urine RBC Urine WBC Ur Squamous Epith Cells Urine Bacteria Urine Mucus MRSA (PCR) POC Glucose 04/22/18 04/22/18 04/22/18 06:19 12:02 12:08 WBC Corrected WBC RBC Hgb Hct MCV MCH MCHC RDW RDW Differential Plt Count MPV Immature Gran % (Auto) Neut % (Auto) Lymph % (Auto) Bee % (Auto) Eos % (Auto) Baso % (Auto) Immature Gran # (Auto) Absolute Neuts (auto) Absolute Lymphs (auto) Absolute Monos (auto) Total Counted Neutrophils % (Manual) Band Neutrophils % Lymphocytes % (Manual) Monocytes % (Manual) Eosinophils % (Manual) Basophils % (Manual) Metamyelocytes % Myelocytes % Promyelocytes % Blast Cells % Plasma Cell % (Manual) Other Cells % Lymphocytes # Nucleated RBCs/100 WBC Differential Comment Diff Path Review Hypersegmented Neuts Atypical Lymphocytes Reactive Lymphocytes Smudge Cells Eosinophilia # Basophilia # Toxic Granulation Dohle Bodies Ruperto Rods Platelet Estimate Plt Morphology Comment RBC Morphology Polychromasia Hypochromasia Poikilocytosis Basophilic Stippling Anisocytosis Microcytosis Macrocytosis Spherocytes Sickle Cells Target Cells Tear Drop Cells Ovalocytes Stomatocytes [place] Bodies [place] Cells Bite Cells Acanthocytes (Spur) Rouleaux Schistocytes Specimen Type Sample Site pH Bicarbonate Actual POC Total CO2 Base Excess O2 Saturation O2 % ABG pCO2 ABG pO2 Mart Test Respiration Rate O2 Delivery Device Liter Flow Vent Mode Tidal Volume POC PEEP EPAP IPAP Blood Gas Notified Whom Blood Gas Notified Time Sodium Potassium Chloride Carbon Dioxide Anion Gap BUN Creatinine Estim Creat Clear Calc Est GFR (MDRD) Af Amer Est GFR (MDRD) Non-Af BUN/Creatinine Ratio Glucose Lactic Acid Calcium Troponin I B-Natriuretic Peptide Urine Color Urine Clarity Urine pH Ur Specific [place] Urine Protein Urine Glucose (UA) Urine Ketones Urine Occult Blood Urine Nitrite Urine Bilirubin Urine Urobilinogen Ur Leukocyte Esterase Urine RBC Urine WBC Ur Squamous Epith Cells Urine Bacteria Urine Mucus MRSA (PCR) Negative POC Glucose 64 L 72 04/22/18 04/23/18 04/23/18 23:42 00:06 00:25 WBC Corrected WBC RBC Hgb Hct MCV MCH MCHC RDW RDW Differential Plt Count MPV Immature Gran % (Auto) Neut % (Auto) Lymph % (Auto) Bee % (Auto) Eos % (Auto) Baso % (Auto) Immature Gran # (Auto) Absolute Neuts (auto) Absolute Lymphs (auto) Absolute Monos (auto) Total Counted Neutrophils % (Manual) Band Neutrophils % Lymphocytes % (Manual) Monocytes % (Manual) Eosinophils % (Manual) Basophils % (Manual) Metamyelocytes % Myelocytes % Promyelocytes % Blast Cells % Plasma Cell % (Manual) Other Cells % Lymphocytes # Nucleated RBCs/100 WBC Differential Comment Diff Path Review Hypersegmented Neuts Atypical Lymphocytes Reactive Lymphocytes Smudge Cells Eosinophilia # Basophilia # Toxic Granulation Dohle Bodies Ruperto Rods Platelet Estimate Plt Morphology Comment RBC Morphology Polychromasia Hypochromasia Poikilocytosis Basophilic Stippling Anisocytosis Microcytosis Macrocytosis Spherocytes Sickle Cells Target Cells Tear Drop Cells Ovalocytes Stomatocytes [place] Bodies [place] Cells Bite Cells Acanthocytes (Spur) Rouleaux Schistocytes Specimen Type Sample Site pH Bicarbonate Actual POC Total CO2 Base Excess O2 Saturation O2 % ABG pCO2 ABG pO2 Mart Test Respiration Rate O2 Delivery Device Liter Flow Vent Mode Tidal Volume POC PEEP EPAP IPAP Blood Gas Notified Whom Blood Gas Notified Time Sodium Potassium Chloride Carbon Dioxide Anion Gap BUN Creatinine Estim Creat Clear Calc Est GFR (MDRD) Af Amer Est GFR (MDRD) Non-Af BUN/Creatinine Ratio Glucose Lactic Acid Calcium Troponin I B-Natriuretic Peptide Urine Color Urine Clarity Urine pH Ur Specific [place] Urine Protein Urine Glucose (UA) Urine Ketones Urine Occult Blood Urine Nitrite Urine Bilirubin Urine Urobilinogen Ur Leukocyte Esterase Urine RBC Urine WBC Ur Squamous Epith Cells Urine Bacteria Urine Mucus MRSA (PCR) POC Glucose 58 L 60 L 60 L 04/23/18 04/23/18 04/23/18 01:41 04:20 04:20 WBC 10.1 Corrected WBC RBC 4.52 L Hgb 12.6 L Hct 40.2 MCV 88.9 MCH 27.9 MCHC 31.3 L RDW 19.9 H RDW Differential 62.8 H Plt Count 133 L MPV 9.8 Immature Gran % (Auto) 0.200 Neut % (Auto) 85.8 H Lymph % (Auto) 7.1 L Bee % (Auto) 6.0 Eos % (Auto) 0.7 Baso % (Auto) 0.2 Immature Gran # (Auto) Absolute Neuts (auto) 8.7 H Absolute Lymphs (auto) 0.72 L Absolute Monos (auto) Total Counted Not Reportable Neutrophils % (Manual) Band Neutrophils % Lymphocytes % (Manual) Monocytes % (Manual) Eosinophils % (Manual) Basophils % (Manual) Metamyelocytes % Myelocytes % Promyelocytes % Blast Cells % Plasma Cell % (Manual) Other Cells % Lymphocytes # Nucleated RBCs/100 WBC Differential Comment Diff Path Review Hypersegmented Neuts Atypical Lymphocytes Reactive Lymphocytes Smudge Cells Eosinophilia # Basophilia # Toxic Granulation Dohle Bodies Ruperto Rods Platelet Estimate Plt Morphology Comment RBC Morphology Polychromasia Hypochromasia Poikilocytosis Basophilic Stippling Anisocytosis Microcytosis Macrocytosis Spherocytes Sickle Cells Target Cells Tear Drop Cells Ovalocytes Stomatocytes [place] Bodies [place] Cells Bite Cells Acanthocytes (Spur) Rouleaux Schistocytes Specimen Type Sample Site pH Bicarbonate Actual POC Total CO2 Base Excess O2 Saturation O2 % ABG pCO2 ABG pO2 Mart Test Respiration Rate O2 Delivery Device Liter Flow Vent Mode Tidal Volume POC PEEP EPAP IPAP Blood Gas Notified Whom Blood Gas Notified Time Sodium 141 Potassium 4.0 Chloride 101 Carbon Dioxide 34.0 H Anion Gap 6 BUN 22 H Creatinine 0.90 Estim Creat Clear Calc 100.41 Est GFR (MDRD) Af Amer 110 Est GFR (MDRD) Non-Af 91 BUN/Creatinine Ratio 24.6 H Glucose 101 Lactic Acid Calcium 8.0 L Troponin I B-Natriuretic Peptide Urine Color Urine Clarity Urine pH Ur Specific [place] Urine Protein Urine Glucose (UA) Urine Ketones Urine Occult Blood Urine Nitrite Urine Bilirubin Urine Urobilinogen Ur Leukocyte Esterase Urine RBC Urine WBC Ur Squamous Epith Cells Urine Bacteria Urine Mucus MRSA (PCR) POC Glucose 74 04/23/18 06:05 WBC Corrected WBC RBC Hgb Hct MCV MCH MCHC RDW RDW Differential Plt Count MPV Immature Gran % (Auto) Neut % (Auto) Lymph % (Auto) Bee % (Auto) Eos % (Auto) Baso % (Auto) Immature Gran # (Auto) Absolute Neuts (auto) Absolute Lymphs (auto) Absolute Monos (auto) Total Counted Neutrophils % (Manual) Band Neutrophils % Lymphocytes % (Manual) Monocytes % (Manual) Eosinophils % (Manual) Basophils % (Manual) Metamyelocytes % Myelocytes % Promyelocytes % Blast Cells % Plasma Cell % (Manual) Other Cells % Lymphocytes # Nucleated RBCs/100 WBC Differential Comment Diff Path Review Hypersegmented Neuts Atypical Lymphocytes Reactive Lymphocytes Smudge Cells Eosinophilia # Basophilia # Toxic Granulation Dohle Bodies Ruperto Rods Platelet Estimate Plt Morphology Comment RBC Morphology Polychromasia Hypochromasia Poikilocytosis Basophilic Stippling Anisocytosis Microcytosis Macrocytosis Spherocytes Sickle Cells Target Cells Tear Drop Cells Ovalocytes Stomatocytes [place] Bodies [place] Cells Bite Cells Acanthocytes (Spur) Rouleaux Schistocytes Specimen Type Sample Site pH Bicarbonate Actual POC Total CO2 Base Excess O2 Saturation O2 % ABG pCO2 ABG pO2 Mart Test Respiration Rate O2 Delivery Device Liter Flow Vent Mode Tidal Volume POC PEEP EPAP IPAP Blood Gas Notified Whom Blood Gas Notified Time Sodium Potassium Chloride Carbon Dioxide Anion Gap BUN Creatinine Estim Creat Clear Calc Est GFR (MDRD) Af Amer Est GFR (MDRD) Non-Af BUN/Creatinine Ratio Glucose Lactic Acid Calcium Troponin I B-Natriuretic Peptide Urine Color Urine Clarity Urine pH Ur Specific [place] Urine Protein Urine Glucose (UA) Urine Ketones Urine Occult Blood Urine Nitrite Urine Bilirubin Urine Urobilinogen Ur Leukocyte Esterase Urine RBC Urine WBC Ur Squamous Epith Cells Urine Bacteria Urine Mucus MRSA (PCR) POC Glucose 107 Microbiology 04/22/18 12:02 Urine Catheter - Catheter Streptococcus pneumoniae Antigen (M - Final 04/22/18 12:02 Urine Catheter - Catheter Legionella Antigen - Final 04/21/18 11:35 Urine, Catheterized Urine Culture - Preliminary Gram negative dante Clinical Impression(s) from Imaging Studies Chest X-Ray 04/21/18 11:15 IMPRESSION: Radiographic findings suggest congestive heart failure. Electronically Signed: Joan Gorman MD at 11:58 EDT , Service support , Brain CT 04/21/18 11:32 IMPRESSION: No CT evident acute intracranial brain pathology. Right orbital mass with right proptosis. Differential considerations include hemangioma versus pseudotumor versus rhabdomyoma/rhabdomyosarcoma. Recommend further evaluation with dedicated orbital MRI. Electronically Signed: Soto Sutherland MD at 13:40 EDT , Service support , Chest X-Ray 04/21/18 14:54 Chest X-Ray 04/22/18 08:18 IMPRESSION: Severe cardiomegaly worsening bilateral effusions. Endotracheal tube is high severe advanced 2 cm. The tip of the NG tube is not visualized and should be clarified. Electronically Signed: Nichole Cordoba MD at 14:48 EDT Tel , Service support , Chest X-Ray 04/22/18 13:17 IMPRESSION: Extremely limited by patient's size and underexposure. Right PICC line appears to terminate in the area of the cavoatrial junction. Electronically Signed: Hiram Bob MD at 14:31 EDT , Service support , Medical Necessity - Tobacco Use Smoking Status: Never smoker Assessment/Plan All Active Problems Acute and chronic respiratory failure with hypercapnia (Acute) Cellulitis, leg (Resolved) Hyperkalemia (Acute) HAY (acute kidney injury) (Acute) Cellulitis (Resolved) RECOMMENDATIONS: 1. Continue patient on full mechanical ventilatory support yet today. 2. Repeat spontaneous awakening and breathing trial tomorrow morning. 3. Continue antibiotics, pending finalized culture results. 4. Wean FiO2 to maintain an oxygen saturation of 90%. 5. Continue current sedation regimen with a goal to maintain a RASS of -1 to 1. 6. Continue appropriate ICU prophylaxis 7. Continue tube feeds IMPRESSIONS: 1. Acute hypoxemic and hypercarbic respiratory failure Potential etiologies include decompensated heart failure and/or underlying pulmonary infectious process. However, the patient's chest imaging studies are quite difficult to interpret due to poor quality secondary to the patient's body habitus. For now, he will be continued on Lasix as ordered. Empiric antibiotics will be continued, pending a pulmonary infectious workup. We will continue to wean FiO2 and PEEP to maintain an oxygen saturation above 90%. Additional changes will be made to the patient's ventilator parameters to further aid in CO2 elimination. Continue current sedation regimen and tube feeds. Plan for daily paired spontaneous awakening and breathing trials. 2. Encephalopathy Likely metabolic in etiology with underlying CO2 retention identified. Anticipate improvement with correction of the patient's underlying acid-base disturbance. Continue current sedation regimen with a goal to maintain a RASS of -1 to 1. 3. Severe sepsis As noted above, potential etiologies include lower extremity cellulitis, urinary tract infection and possible pulmonary infectious process. We will plan to continue broad-spectrum antibiotics for now. Please note that the patient was not volume resuscitated per sepsis guideline protocol, due to the concern for underlying decompensated heart failure. 4. Newly discovered biventricular heart failure Continue current supportive measures as noted above, including diuretics. The patient may need to be evaluated by cardiology. 5. Incidental note of right orbital mass The patient's family was made aware of these radiographic findings. At the current time, they are not wishing to pursue any additional workup. 6. Super morbid obesity/diabetes/medical noncompliance/hypertension/depression/gout/GERD Complicates care, management, recovery and prognosis. Likely okay to continue home medications for now. Recommend Accu-Cheks and sliding scale coverage every 6 hours. TIME: 40 minutes of critical care time, independent of procedures, was spent addressing the patient's acute respiratory failure, encephalopathy, sepsis, orbital mass, review of all data and collaboration with the care team. ([id number]) Code Visit 9xxxx: [id number] Critical care first hour
--- NOTE | 2018-04-23 07:27 | CPS ---
Pt failed SBT due to low Vt. Vt was 250-350.
[2018-04-23] MEDS: 0.9% NaCl Peripheral Flush Adult/Peds IV ×2 (07:44→21:58)
--- NOTE | 2018-04-23 07:46 | PCM.PN.HOSP ---
Patient Problems: Active and Suspected Problems Acute and chronic respiratory failure with hypercapnia (Acute) Subjective: Patient seen and examined No fever. Blood pressure in 100s consistent with low EF. Vitals/I&O's: Vital Signs Temp Pulse Resp BP Pulse Ox 98.5 F 103 H 23 H 120/87 H 97 04/23/18 06:00 04/23/18 06:31 04/23/18 06:31 04/23/18 06:00 04/23/18 06:31 Oxygen Flow Rate (L/min) 6 Oxygen Delivery Method Mechanical Ventilator Weight: 571 lb 7.01 oz Body Mass Index (BMI) 77.7 Intake and Output for Last 24 Hours 04/21/18 04/22/18 04/23/18 23:59 23:59 23:59 Intake Total 536 / 536 1942.5 / 1942.5 776.6 / 776.6 Output Total 850 / 850 2325 / 2325 250 / 250 Balance -314 / -314 -382.5 / -382.5 526.6 / 526.6 General: - - Sedated HEENT: Atraumatic, PERRLA, EOMI Oral: - - PT and OG tube Neck: Supple, No JVD, Negative Carotid Bruits Lungs: No wheeze, - - On vent support Cardiovascular: Regular rate, Regular Rhythm, Normal S1, Normal S2, No murmurs Abdomen: Soft, Non Tender, - - Hard to examine abdomen due to super morbid obesity Extremities: Edema Skin: - - Soft tissue hyperplasia Musculoskeletal: Arthritic Changes Microbiology Past 72 Hours 04/22/18 12:02 Urine Catheter - Catheter Streptococcus pneumoniae Antigen (M - Final 04/22/18 12:02 Urine Catheter - Catheter Legionella Antigen - Final 04/21/18 11:35 Urine, Catheterized Urine Culture - Preliminary Gram negative dante Laboratory Results 04/22/18 12:02: MRSA (PCR) Negative 04/22/18 12:08: POC Glucose 72 04/22/18 23:42: POC Glucose 58 L 04/23/18 00:06: POC Glucose 60 L 04/23/18 00:25: POC Glucose 60 L 04/23/18 01:41: POC Glucose 74 04/23/18 04:20: WBC 10.1, RBC 4.52 L, Hgb 12.6 L, Hct 40.2, MCV 88.9, MCH 27.9, MCHC 31.3 L, RDW 19.9 H, RDW Differential 62.8 H, Plt Count 133 L, MPV 9.8, Immature Gran % (Auto) 0.200, Neut % (Auto) 85.8 H, Lymph % (Auto) 7.1 L, [place]oux % (Auto) 6.0, Eos % (Auto) 0.7, Baso % (Auto) 0.2, Absolute Neuts (auto) 8.7 H, Absolute Lymphs (auto) 0.72 L, Total Counted Not Reportable 04/23/18 04:20: Sodium 141, Potassium 4.0, Chloride 101, Carbon Dioxide 34.0 H, Anion Gap 6, BUN 22 H, Creatinine 0.90, Estim Creat Clear Calc 100.41, Est GFR (MDRD) Af Amer 110, Est GFR (MDRD) Non-Af 91, BUN/Creatinine Ratio 24.6 H, Glucose 101, Calcium 8.0 L 04/23/18 06:05: POC Glucose 107 Current Medications Albuterol/Ipratropium (Duoneb) 3 ml INHALATION Q6H.RT [facility] Last Admin: 04/23/18 06:31 Dose: 3 ml Allopurinol (Zyloprim) 300 mg GT QHS [facility] Last Admin: 04/22/18 21:43 Dose: 300 mg Apixaban (Eliquis) 5 mg GT BID [facility] Last Admin: 04/22/18 21:43 Dose: 5 mg Atenolol (Tenormin (Beta Mckinley)) 50 mg GT BID [facility] Last Admin: 04/22/18 21:38 Dose: Not Given Bupropion HCl (Wellbutrin Tablets) 100 mg GT TID [facility] Chlorhexidine Gluconate () 15 ml PO BID [facility] Last Admin: 04/22/18 21:44 Dose: 15 ml Chlorhexidine Gluconate () 1 each TOPICAL DAILY [facility] Last Admin: 04/23/18 01:05 Dose: 1 each Dextrose (D50w Syringe) 0 gm IV X1 PRN; Protocol PRN Reason: Hypoglycemia Last Admin: 04/23/18 00:09 Dose: 12.5 gm Famotidine (Pepcid) 20 mg GT BID [facility] Last Admin: 04/22/18 21:43 Dose: 20 mg Furosemide (Lasix) 40 mg IV Q8 [facility] Last Admin: 04/23/18 05:18 Dose: Not Given Glucagon () 1 mg IM .X1 PRN PRN Reason: Hypoglycemia Propofol (Diprivan) 1,000 mg in 100 mls @ 8.464 mls/hr CONT INF .[id number] [facility]; Protocol Last Admin: 04/23/18 04:10 Dose: Not Given Sodium Chloride () 250 mls @ 15 mls/hr IV .[id number] PRN PRN Reason: SALINE FLUSH Last Admin: 04/21/18 20:54 Dose: 15 mls/hr Sodium Chloride () 250 mls @ 15 mls/hr IV .[id number] PRN PRN Reason: SALINE FLUSH Fentanyl () 100 mls @ 5 mls/hr IV .Q20H [facility]; Protocol Last Admin: 04/22/18 10:57 Dose: 5 mls/hr Piperacillin Sod/Tazobactam Sod (Zosyn) 3.375 gm in 50 mls @ 12.5 mls/hr IV Q8 [facility] Last Admin: 04/23/18 05:24 Dose: 12.5 mls/hr Enteral Nutritional Formula (Vital Af 1.2 Dinh Liquid) 1,000 mls @ 80 mls/hr GT .[id number] [facility] Last Admin: 04/23/18 04:11 Dose: Not Given Dextrose () 1,000 mls @ 75 mls/hr IV .[id number] [facility] Stop: 04/23/18 13:54 Last Admin: 04/23/18 01:05 Dose: 75 mls/hr Influenza Virus Vaccine Quadrival (Fluarix/Fluzone) 0.5 ml IM .ONCE ONE Stop: 04/23/18 10:01 Magnesium Hydroxide (Milk Of Magnesia) 30 ml GT DAILY PRN PRN PRN Reason: Constipation Nystatin (Mycostatin Powder) 1 applic TOPICAL BID [facility]; Protocol Last Admin: 04/22/18 21:43 Dose: 1 applicatio Sodium Chloride () 5 - 30 ml IV UD PRN PRN Reason: SALINE FLUSH Last Admin: 04/23/18 07:44 Dose: 20 ml Medical Necessity - Tobacco Use Smoking Status: Never smoker Assessment/Plan All Active Problems Acute and chronic respiratory failure with hypercapnia (Acute) Cellulitis, leg (Resolved) Hyperkalemia (Acute) HAY (acute kidney injury) (Acute) Cellulitis (Resolved) There is a 62-year-old male with history of super morbid obesity type 2 diabetes, bedbound, assisted resident for altered mental status, confusion and lethargy and somnolent with slurred speech, dysarthria from ER. In ED, ABG showed hypercapnic and slightly acidotic pH 7.28. Initially, patient was put on BiPAP but there was no improvement clinically and on repeat ABG, thereafter patient was intubated. Patient has chronic venous stasis, lymphedema and scrotal edema with chronic soft tissue hyperplasia and hypertrophy. Currently patient is sedated on propofol and fentanyl. 1. Acute encephalopathy, most probably metabolic secondary to hypercapnia/CO2 narcosis: Intubated on mechanical ventilator. 2. Acute on chronic hypoxic and hypercapnic combined respiratory failure. This appears to be multifactorial including obstructive sleep apnea and perhaps obesity alveolar hypoventilation syndrome and pulmonary hypertension. Suspect that there may be superimposed pulmonary edema from left ventricular diastolic failure. ProBNP is elevated. Patient is diuresed with IV Lasix. 2D echo is ordered. Rest as per hat cone inspector. 3. Severe sepsis, exact etiology unclear but probably right lower extremity cellulitis. Lactic acid was 5.3, 4.3. Blood cultures and urine cultures are pending. Patient initially was started on IV cefazolin and doxycycline to cover Streptococcus pyogenous and MRSA but later on antibiotic spectrum was broadened to IV Zosyn. Chest x-ray is suboptimal quality because of morbid obese body habitus. Wound care nurse consult 4. 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 Left and right atria are severely enlarged. Septal wall motion consistent with RV pressure and volume overload. Severely dilated right ventricle with moderate global right ventricular systolic dysfunction. Mild AR and MR. Mild TR, RVSP 32 mmHg. 5. Arrhythmia: On cardiac exercise specialist patient heart rate fluctuates between A. fib, sinus arrhythmia/ sinus tachycardia although P wave is indistinct. One EKG shows A. fib. Overall with high morbidity, patient is started on Eliquis. Incidental finding of right orbital mass with right proptosis on CT head. Super morbid obesity. Microbiology Past 72 Hours 04/22/18 12:02 Urine Catheter - Catheter Streptococcus pneumoniae Antigen (M - Final 04/22/18 12:02 Urine Catheter - Catheter Legionella Antigen - Final 04/21/18 11:35 Urine, Catheterized Urine Culture - Preliminary Gram negative dante Laboratory Results 04/22/18 12:02: MRSA (PCR) Negative 04/22/18 12:08: POC Glucose 72 04/22/18 23:42: POC Glucose 58 L 04/23/18 00:06: POC Glucose 60 L 04/23/18 00:25: POC Glucose 60 L 04/23/18 01:41: POC Glucose 74 04/23/18 04:20: WBC 10.1, RBC 4.52 L, Hgb 12.6 L, Hct 40.2, MCV 88.9, MCH 27.9, MCHC 31.3 L, RDW 19.9 H, RDW Differential 62.8 H, Plt Count 133 L, MPV 9.8, Immature Gran % (Auto) 0.200, Neut % (Auto) 85.8 H, Lymph % (Auto) 7.1 L, [place]oux % (Auto) 6.0, Eos % (Auto) 0.7, Baso % (Auto) 0.2, Absolute Neuts (auto) 8.7 H, Absolute Lymphs (auto) 0.72 L, Total Counted Not Reportable 04/23/18 04:20: Sodium 141, Potassium 4.0, Chloride 101, Carbon Dioxide 34.0 H, Anion Gap 6, BUN 22 H, Creatinine 0.90, Estim Creat Clear Calc 100.41, Est GFR (MDRD) Af Amer 110, Est GFR (MDRD) Non-Af 91, BUN/Creatinine Ratio 24.6 H, Glucose 101, Calcium 8.0 L 04/23/18 06:05: POC Glucose 107 Clinical Impression(s) from Imaging Studies Brain CT 04/21/18 11:32 IMPRESSION: No CT evident acute intracranial brain pathology. Right orbital mass with right proptosis. Differential considerations include hemangioma versus pseudotumor versus rhabdomyoma/rhabdomyosarcoma. Recommend further evaluation with dedicated orbital MRI. Chest X-Ray 04/22/18 13:17 IMPRESSION: Extremely limited by patient's size and underexposure. Right PICC line appears to terminate in the area of the cavoatrial junction. Code Visit Inpatient E&M: 85492 Subs Hosp L3
[2018-04-23] MEDS: Chlorhexidine 15 ML PO ×2 (10:25→21:49)
[2018-04-23] MEDS: Nystatin Powder 15gm Bottle 1 APPLIC TOPICAL ×2 (10:25→21:41)
[2018-04-23] MEDS: APIXABAN 5 MG TABLET GT ×2 (10:26→21:44)
[2018-04-23] MEDS: Famotidine 20 MG Tablet GT ×2 (10:27→21:45)
[2018-04-23] MEDS: fentaNYL drip 100 ML 5 MCG IV (10:52)
[2018-04-23 12:16] LABS: Bedside Glucose 118 mg/dL (70-110)
[2018-04-23] MEDS: Propofol 10MG/Ml 1,000 MG/100 ML Bottle 8.464 MG CONT INF (12:49)
[2018-04-23] MEDS: buPROPion 100 MG Tablet GT ×2 (12:52→21:44)
[2018-04-23] MEDS: Vital AF 1.2 Cal Liquid 1,000 ML 80 ML GT (17:52)
[2018-04-23 17:55] LABS: Bedside Glucose 108 mg/dL (70-110)
[2018-04-23] MEDS: Furosemide 40 MG/4 ML Vial IV (21:46)
[2018-04-23] MEDS: Allopurinol 300 MG Tablet GT (21:50)
[2018-04-24] VITALS (32 sets, daily range): BP systolic 97–148; BP diastolic 59–99; PULSE 85–106; RESP 12–23; TEMP 36.6–37.1; O2SAT 94–100
[2018-04-24] MEDS: Propofol 10MG/Ml 1,000 MG/100 ML Bottle 8.464 MG CONT INF (00:31)
[2018-04-24 00:41] LABS: Bedside Glucose 128 mg/dL (70-110)
[2018-04-24] MEDS: Ipratropium/Albuterol Sulfate 3 ML AMPUL.NEB INHALATION ×4 (01:30→19:15)
[2018-04-24 04:33] LABS: Absolute Lymphocyte Count 0.67 X10^3/ul (0.83-4.51); Absolute Neutrophil Count 8.4 X10^3/uL (2.0-7.7); Basophil# 0.02 X10^3/uL; Basophil% 0.2 % (0-1); Eosinophil# 0.13 X10^3/uL; Eosinophils% 1.3 % (0-5); Hematocrit 43.6 % (40-54); Hemoglobin 13.4 g/dl (13.0-16.5); Lymphocyte # 0.67 X10^3/ul (4.0); Lymphocyte % 6.8 % (19-41); Mean Corp Hgb Conc 30.7 g/gl (32-36); Mean Corpuscular Hgb 27.5 pg (27.0-32.0); Mean Corpuscular Volume 89.3 fL (80-94); Monocyte# 0.62 X10^3/uL; Monocyte% 6.3 % (0-10); Neutrophil # 8.43 X10^3/uL (2.7-7.7); Neutrophil % 85.3 % (47-70); Platelet Count 130 K/mm3 (150-450); RBC Distribution Width CV 19.8 % (11.6-14.6); RBC Distribution Width SD 64.4 fl (35.1-43.9); Red Blood Count 4.88 M/mm3 (4.6-6.2); White Blood Count 9.9 K/mm3 (4.4-11.0)
[2018-04-24 04:35] LABS: POSITIVE COUNT NO; POSITIVE DIFFERENTIAL NO; POSITIVE MORPHOLOGY NO
[2018-04-24 04:44] LABS: Anion Gap 5 (5-15); BUN 21 mg/dL (7-18); BUN/Creat Ratio 24.2 RATIO (10-20); Chloride 99 mmol/L (98-107); Creatinine, Serum 0.87 mg/dL (0.70-1.30); EST Glomerular Filtration Rate 95 mL/min (>60); Est Glom Filt Rate - Afr Amer 114 mL/min (>60); Estimated Creatinine Clearance 103.87 ml/min; Glucose 117 mg/dL (74-106); Potassium 3.8 mmol/L (3.5-5.1); Sodium Level 138 mmol/L (136-145)
[2018-04-24] MEDS: Piperacil/Tazobactam 3.375 GM/50 ML ML IV (06:07)
[2018-04-24 06:16] LABS: Bedside Glucose 114 mg/dL (70-110)
[2018-04-24 06:51] LABS: Allen Test POS; Base Excess 10 mmol/L (-2 to +2); Bicarbonate 34.6 mmol/L (22-26); Blood Gas Specimen Type ART; FI02 30; Mode CPAP PS; O2 Delivery Device Vent; PEEP 5; PO2 67 mmHG (75-100); PS 5; SITE R Radial; SO2 93 % (95-99); Time Given 646; Total Carbon Dioxide 36 mmol/L; pCO2 52.9 mmHg (35-45); pH 7.42 (7.35-7.45)
[2018-04-24] MEDS: Furosemide 40 MG/4 ML Vial IV ×3 (06:57→22:04)
[2018-04-24] MEDS: buPROPion 100 MG Tablet GT (06:57)
--- NOTE | 2018-04-24 07:48 | PCM.PN.HOSP ---
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 No fever. Currently, on 4 L of oxygen through nasal cannula. ABG was good 7.42/52.9/67 on 30% FiO2, PEEP 5. After extubation, patient said he does not know about his history of heart and lung disease. He denies congestive heart failure, arrhythmia or heart attack. Vitals/I&O's: Vital Signs Temp Pulse Resp BP Pulse Ox 98.5 F 102 H 18 137/91 H 98 04/24/18 07:00 04/24/18 07:23 04/24/18 07:00 04/24/18 07:00 04/24/18 07:00 Oxygen Flow Rate (L/min) 6 Oxygen Delivery Method Nasal Cannula Weight: 572 lb 8.647 oz Body Mass Index (BMI) 77.7 Intake and Output for Last 24 Hours 04/22/18 04/23/18 04/24/18 23:59 23:59 23:59 Intake Total 1942.5 / 1942.5 3144.6 / 3144.6 1638.8 / 1638.8 Output Total 2325 / 2325 725 / 725 1200 / 1200 Balance -382.5 / -382.5 2419.6 / 2419.6 438.8 / 438.8 General: Alert, Oriented x3, Cooperative HEENT: Atraumatic, PERRLA, EOMI, Normocephalic Neck: Supple, No JVD, Negative Carotid Bruits Lungs: Diminished - Bilaterally., Rhonchi Cardiovascular: Regular rate, Regular Rhythm, Normal S1, Normal S2, No murmurs, - - Multiple PVCs on cylinder press operator. Abdomen: Bowel Sounds Present, Soft, Non Tender Extremities: Capillary Refill Less than 3 Seconds, Edema Skin: No rashes, No breakdown Musculoskeletal: No Tenderness to Palpation of Joints or Extremities, Arthritic Changes Neurological: Cranial nerves II-XII grossly intact, Neuro grossly intact Psych/Mental Status: Normal Affect, Appropriate Microbiology Past 72 Hours 04/22/18 13:54 Sputum, Induced/Lukens Gram Stain - Final 04/22/18 13:54 Sputum, Induced/Lukens Respiratory Culture - Preliminary Culture exhibits no growth. 04/21/18 12:33 Blood Culture (Wb) - Left Hand Blood Culture - Preliminary No growth in 48 hours. 04/21/18 11:14 Blood Culture (Wb) - Right Hand Blood Culture - Preliminary No growth in 48 hours. 04/21/18 11:35 Urine, Catheterized Urine Culture - Final Proteus mirabilis 04/22/18 12:02 Urine Catheter - Catheter Streptococcus pneumoniae Antigen (M - Final 04/22/18 12:02 Urine Catheter - Catheter Legionella Antigen - Final Laboratory Results 04/23/18 12:09: POC Glucose 118 H 04/23/18 17:41: POC Glucose 108 04/24/18 00:37: POC Glucose 128 H 04/24/18 04:15: WBC 9.9, RBC 4.88, Hgb 13.4, Hct 43.6, MCV 89.3, MCH 27.5, MCHC 30.7 L, RDW 19.8 H, RDW Differential 64.4 H, Plt Count 130 L, MPV 10.0, Immature Gran % (Auto) 0.100, Neut % (Auto) 85.3 H, Lymph % (Auto) 6.8 L, King % (Auto) 6.3, Eos % (Auto) 1.3, Baso % (Auto) 0.2, Absolute Neuts (auto) 8.4 H, Absolute Lymphs (auto) 0.67 L, Total Counted Not Reportable 04/24/18 04:15: Sodium 138, Potassium 3.8, Chloride 99, Carbon Dioxide 34.0 H, Anion Gap 5, BUN 21 H, Creatinine 0.87, Estim Creat Clear Calc 103.87, Est GFR (MDRD) Af Amer 114, Est GFR (MDRD) Non-Af 95, BUN/Creatinine Ratio 24.2 H, Glucose 117 H, Calcium 8.0 L 04/24/18 06:06: POC Glucose 114 H 04/24/18 06:44: Specimen Type ART, Sample Site R Radial, pH 7.42, Bicarbonate Actual 34.6 H, POC Total CO2 36, Base Excess 10 H, O2 Saturation 93 L, O2 % 30, ABG pCO2 52.9 H, ABG pO2 67 L, Mart Test POS, O2 Delivery Device Vent, Vent Mode CPAP PS, POC PEEP 5, POC Pressure Suppt 5, Blood Gas Notified Whom ICU MD, Blood Gas Notified Time 646 Current Medications Albuterol/Ipratropium (Duoneb) 3 ml INHALATION Q6H.RT [facility] Last Admin: 04/24/18 06:37 Dose: 3 ml Allopurinol (Zyloprim) 300 mg GT QHS [facility] Last Admin: 04/23/18 21:50 Dose: 300 mg Apixaban (Eliquis) 5 mg GT BID [facility] Last Admin: 04/23/18 21:44 Dose: 5 mg Atenolol (Tenormin (Beta Mckinley)) 50 mg GT BID [facility] Last Admin: 04/24/18 02:10 Dose: Not Given Bupropion HCl (Wellbutrin Tablets) 100 mg GT TID [facility] Last Admin: 04/24/18 06:57 Dose: 100 mg Chlorhexidine Gluconate () 15 ml PO BID [facility] Last Admin: 04/23/18 21:49 Dose: 15 ml Chlorhexidine Gluconate () 1 each TOPICAL DAILY [facility] Last Admin: 04/23/18 01:05 Dose: 1 each Dextrose (D50w Syringe) 0 gm IV X1 PRN; Protocol PRN Reason: Hypoglycemia Last Admin: 04/23/18 00:09 Dose: 12.5 gm Famotidine (Pepcid) 20 mg GT BID [facility] Last Admin: 04/23/18 21:45 Dose: 20 mg Furosemide (Lasix) 40 mg IV Q8 [facility] Last Admin: 04/24/18 06:57 Dose: 40 mg Glucagon () 1 mg IM .X1 PRN PRN Reason: Hypoglycemia Propofol (Diprivan) 1,000 mg in 100 mls @ 8.464 mls/hr CONT INF .[id number] [facility]; Protocol Last Admin: 04/24/18 00:31 Dose: 8.464 mls/hr Sodium Chloride () 250 mls @ 15 mls/hr IV .[id number] PRN PRN Reason: SALINE FLUSH Last Admin: 04/21/18 20:54 Dose: 15 mls/hr Sodium Chloride () 250 mls @ 15 mls/hr IV .[id number] PRN PRN Reason: SALINE FLUSH Fentanyl () 100 mls @ 5 mls/hr IV .Q20H [facility]; Protocol Last Admin: 04/23/18 10:52 Dose: 5 mls/hr Piperacillin Sod/Tazobactam Sod (Zosyn) 3.375 gm in 50 mls @ 12.5 mls/hr IV Q8 [facility] Last Admin: 04/24/18 06:07 Dose: 12.5 mls/hr Enteral Nutritional Formula (Vital Af 1.2 Dinh Liquid) 1,000 mls @ 80 mls/hr GT .[id number] [facility] Last Admin: 04/24/18 06:53 Dose: Not Given Magnesium Hydroxide (Milk Of Magnesia) 30 ml GT DAILY PRN PRN PRN Reason: Constipation Nystatin (Mycostatin Powder) 1 applic TOPICAL BID [facility]; Protocol Last Admin: 04/23/18 21:41 Dose: 1 applicatio Sodium Chloride () 5 - 30 ml IV UD PRN PRN Reason: SALINE FLUSH Last Admin: 04/23/18 21:58 Dose: 30 ml Medical Necessity - Tobacco Use Smoking Status: Never smoker Assessment/Plan All Active Problems Acute and chronic respiratory failure with hypercapnia (Acute) Cellulitis, leg (Resolved) Hyperkalemia (Acute) HAY (acute kidney injury) (Acute) Cellulitis (Resolved) There is a 62-year-old male with history of super morbid obesity type 2 diabetes, bedbound, [facility] resident for altered mental status, confusion and lethargy and somnolent with slurred speech, dysarthria from ER. In ED, ABG showed hypercapnic and slightly acidotic pH 7.28. Initially, patient was put on BiPAP but there was no improvement clinically and on repeat ABG, thereafter patient was intubated. Patient has chronic venous stasis, lymphedema and scrotal edema with chronic soft tissue hyperplasia and hypertrophy. 1. Acute encephalopathy, most probably metabolic secondary to hypercapnia/CO2 narcosis: Patient extubated on 04/24. Currently on oxygen through nasal cannula. 2. Acute on chronic hypoxic and hypercapnic combined respiratory failure. This appears to be multifactorial including obstructive sleep apnea and perhaps obesity alveolar hypoventilation syndrome and pulmonary hypertension and biventricular systolic and diastolic combined heart failure. 3. Severe sepsis, exact etiology unclear but probably right lower extremity cellulitis. Lactic acid was 5.3, 4.3. Blood cultures and urine cultures are pending. Patient initially was started on IV cefazolin and doxycycline to cover Streptococcus pyogenous and MRSA but later on antibiotic spectrum was broadened to IV Zosyn. Chest x-ray is suboptimal quality because of morbid obese body habitus. Wound care nurse consult 4. 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 Left and right atria are severely enlarged. Septal wall motion consistent with RV pressure and volume overload. Severely dilated right ventricle with moderate global right ventricular systolic dysfunction. Mild AR and MR. Mild TR, RVSP 32 mmHg. Patient is diuresed with IV Lasix. Informatics Nurse is being consulted. 5. 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 fib, sinus arrhythmia/ sinus tachycardia although P wave is indistinct. Couple PVCs. One EKG shows A. fib. Overall with high morbidity, patient is started on Eliquis. Incidental finding of right orbital mass with right proptosis on CT head. Super morbid obesity. Microbiology Past 72 Hours 04/22/18 13:54 Sputum, Induced/Lukens Gram Stain - Final 04/22/18 13:54 Sputum, Induced/Lukens Respiratory Culture - Preliminary Culture exhibits no growth. 04/21/18 12:33 Blood Culture (Wb) - Left Hand Blood Culture - Preliminary No growth in 48 hours. 04/21/18 11:14 Blood Culture (Wb) - Right Hand Blood Culture - Preliminary No growth in 48 hours. 04/21/18 11:35 Urine, Catheterized Urine Culture - Final Proteus mirabilis 04/22/18 12:02 Urine Catheter - Catheter Streptococcus pneumoniae Antigen (M - Final 04/22/18 12:02 Urine Catheter - Catheter Legionella Antigen - Final Laboratory Results 04/23/18 12:09: POC Glucose 118 H 04/23/18 17:41: POC Glucose 108 04/24/18 00:37: POC Glucose 128 H 04/24/18 04:15: WBC 9.9, RBC 4.88, Hgb 13.4, Hct 43.6, MCV 89.3, MCH 27.5, MCHC 30.7 L, RDW 19.8 H, RDW Differential 64.4 H, Plt Count 130 L, MPV 10.0, Immature Gran % (Auto) 0.100, Neut % (Auto) 85.3 H, Lymph % (Auto) 6.8 L, King % (Auto) 6.3, Eos % (Auto) 1.3, Baso % (Auto) 0.2, Absolute Neuts (auto) 8.4 H, Absolute Lymphs (auto) 0.67 L, Total Counted Not Reportable 04/24/18 04:15: Sodium 138, Potassium 3.8, Chloride 99, Carbon Dioxide 34.0 H, Anion Gap 5, BUN 21 H, Creatinine 0.87, Estim Creat Clear Calc 103.87, Est GFR (MDRD) Af Amer 114, Est GFR (MDRD) Non-Af 95, BUN/Creatinine Ratio 24.2 H, Glucose 117 H, Calcium 8.0 L 04/24/18 06:06: POC Glucose 114 H 04/24/18 06:44: Specimen Type ART, Sample Site R Radial, pH 7.42, Bicarbonate Actual 34.6 H, POC Total CO2 36, Base Excess 10 H, O2 Saturation 93 L, O2 % 30, ABG pCO2 52.9 H, ABG pO2 67 L, Mart Test POS, O2 Delivery Device Vent, Vent Mode CPAP PS, POC PEEP 5, POC Pressure Suppt 5, Blood Gas Notified Whom ICU MD, Blood Gas Notified Time 646 Clinical Impression(s) from Imaging Studies Brain CT 04/21/18 11:32 IMPRESSION: No CT evident acute intracranial brain pathology. Right orbital mass with right proptosis. Differential considerations include hemangioma versus pseudotumor versus rhabdomyoma/rhabdomyosarcoma. Recommend further evaluation with dedicated orbital MRI. Chest X-Ray 04/22/18 13:17 IMPRESSION: Extremely limited by patient's size and underexposure. Right PICC line appears to terminate in the area of the cavoatrial junction. Code Visit Inpatient E&M: 31798 Subs Hosp L3
--- NOTE | 2018-04-24 10:19 | PN_ITS ---
Subjective: Patient did well overnight. No acute issues were reported. Patient did tolerate a spontaneous breathing trial this morning and was successfully ex tubated under my direct supervision without complication. Patient does report a sore throat and some hoarseness. Patient states he typically has difficulty with his right lower extremity with infections. Patient does report that he was initiated on noninvasive therapy with sleep in the last month, but has not been very compliant per his report. General: Alert, Oriented x3, Cooperative, No apparent distress, - - Morbidly obese. Appears older than stated age. Hoarse voice, but no stridor appreciated. HEENT: Atraumatic, PERRLA, EOMI, Normocephalic, - - Slight scleral injection without icterus Oral: Moist Mucosa, No Gingival or Mucosal Lesions/ Ulcerations Neck: Supple, No Nodes, Trachea Midline, - - Unable to assess JVD secondary to body habitus Lungs: No rhonchi, No wheeze, No rales, Diminished, - - Symmetric expansion. No dullness to percussion. Cardiovascular: Regular rate, Regular Rhythm, Normal S1, Normal S2, No murmurs, No rub noted, No Gallop Abdomen: Bowel Sounds Present, Soft, Non Tender, Non-Distended, Obese Extremities: No cyanosis, Clubbing, Edema Skin: - - Lichenification of the lower extremities with significant lymphedema. Right lower extremity with increased rubor compared to the left. No open areas appreciated. Musculoskeletal: No Tenderness to Palpation of Joints or Extremities Lymphatic: No Cervical, Supraclavicular, or Inguinal Adenopathy Neurological: Cranial nerves II-XII grossly intact, - - Decreased sensation peripherally. Nonfocal exam otherwise. Psych/Mental Status: Appropriate, Flat Affect Vital Signs Temp Pulse Resp BP Pulse Ox 36.9 C 101 H 22 H 139/86 H 98 04/24/18 09:00 04/24/18 09:00 04/24/18 09:00 04/24/18 09:00 04/24/18 09:00 Oxygen Flow Rate (L/min) 2 Oxygen Delivery Method Nasal Cannula Weight: 259.7 kg Body Mass Index (BMI) 77.7 Intake and Output for Last 24 Hours 04/22/18 04/23/18 04/24/18 23:59 23:59 23:59 Intake Total 1942.5 / 1942.5 3144.6 / 3144.6 1768.8 / 1768.8 Output Total 2325 / 2325 725 / 725 1200 / 1200 Balance -382.5 / -382.5 2419.6 / 2419.6 568.8 / 568.8 Labs (Last 48 Hours) 04/22/18 04/22/18 04/22/18 12:02 12:08 23:42 WBC RBC Hgb Hct MCV MCH MCHC RDW RDW Differential Plt Count MPV Immature Gran % (Auto) Neut % (Auto) Lymph % (Auto) [place] % (Auto) Eos % (Auto) Baso % (Auto) Absolute Neuts (auto) Absolute Lymphs (auto) Total Counted Specimen Type Sample Site pH Bicarbonate Actual POC Total CO2 Base Excess O2 Saturation O2 % ABG pCO2 ABG pO2 Mart Test O2 Delivery Device Vent Mode POC PEEP POC Pressure Suppt Blood Gas Notified Whom Blood Gas Notified Time Sodium Potassium Chloride Carbon Dioxide Anion Gap BUN Creatinine Estim Creat Clear Calc Est GFR (MDRD) Af Amer Est GFR (MDRD) Non-Af BUN/Creatinine Ratio Glucose Calcium MRSA (PCR) Negative POC Glucose 72 58 L 04/23/18 04/23/18 04/23/18 00:06 00:25 01:41 WBC RBC Hgb Hct MCV MCH MCHC RDW RDW Differential Plt Count MPV Immature Gran % (Auto) Neut % (Auto) Lymph % (Auto) [place] % (Auto) Eos % (Auto) Baso % (Auto) Absolute Neuts (auto) Absolute Lymphs (auto) Total Counted Specimen Type Sample Site pH Bicarbonate Actual POC Total CO2 Base Excess O2 Saturation O2 % ABG pCO2 ABG pO2 Mart Test O2 Delivery Device Vent Mode POC PEEP POC Pressure Suppt Blood Gas Notified Whom Blood Gas Notified Time Sodium Potassium Chloride Carbon Dioxide Anion Gap BUN Creatinine Estim Creat Clear Calc Est GFR (MDRD) Af Amer Est GFR (MDRD) Non-Af BUN/Creatinine Ratio Glucose Calcium MRSA (PCR) POC Glucose 60 L 60 L 74 04/23/18 04/23/18 04/23/18 04:20 04:20 06:05 WBC 10.1 RBC 4.52 L Hgb 12.6 L Hct 40.2 MCV 88.9 MCH 27.9 MCHC 31.3 L RDW 19.9 H RDW Differential 62.8 H Plt Count 133 L MPV 9.8 Immature Gran % (Auto) 0.200 Neut % (Auto) 85.8 H Lymph % (Auto) 7.1 L [place] % (Auto) 6.0 Eos % (Auto) 0.7 Baso % (Auto) 0.2 Absolute Neuts (auto) 8.7 H Absolute Lymphs (auto) 0.72 L Total Counted Not Reportable Specimen Type Sample Site pH Bicarbonate Actual POC Total CO2 Base Excess O2 Saturation O2 % ABG pCO2 ABG pO2 Mart Test O2 Delivery Device Vent Mode POC PEEP POC Pressure Suppt Blood Gas Notified Whom Blood Gas Notified Time Sodium 141 Potassium 4.0 Chloride 101 Carbon Dioxide 34.0 H Anion Gap 6 BUN 22 H Creatinine 0.90 Estim Creat Clear Calc 100.41 Est GFR (MDRD) Af Amer 110 Est GFR (MDRD) Non-Af 91 BUN/Creatinine Ratio 24.6 H Glucose 101 Calcium 8.0 L MRSA (PCR) POC Glucose 107 04/23/18 04/23/18 04/24/18 12:09 17:41 00:37 WBC RBC Hgb Hct MCV MCH MCHC RDW RDW Differential Plt Count MPV Immature Gran % (Auto) Neut % (Auto) Lymph % (Auto) [place] % (Auto) Eos % (Auto) Baso % (Auto) Absolute Neuts (auto) Absolute Lymphs (auto) Total Counted Specimen Type Sample Site pH Bicarbonate Actual POC Total CO2 Base Excess O2 Saturation O2 % ABG pCO2 ABG pO2 Mart Test O2 Delivery Device Vent Mode POC PEEP POC Pressure Suppt Blood Gas Notified Whom Blood Gas Notified Time Sodium Potassium Chloride Carbon Dioxide Anion Gap BUN Creatinine Estim Creat Clear Calc Est GFR (MDRD) Af Amer Est GFR (MDRD) Non-Af BUN/Creatinine Ratio Glucose Calcium MRSA (PCR) POC Glucose 118 H 108 128 H 04/24/18 04/24/18 04/24/18 04:15 04:15 06:06 WBC 9.9 RBC 4.88 Hgb 13.4 Hct 43.6 MCV 89.3 MCH 27.5 MCHC 30.7 L RDW 19.8 H RDW Differential 64.4 H Plt Count 130 L MPV 10.0 Immature Gran % (Auto) 0.100 Neut % (Auto) 85.3 H Lymph % (Auto) 6.8 L [place] % (Auto) 6.3 Eos % (Auto) 1.3 Baso % (Auto) 0.2 Absolute Neuts (auto) 8.4 H Absolute Lymphs (auto) 0.67 L Total Counted Not Reportable Specimen Type Sample Site pH Bicarbonate Actual POC Total CO2 Base Excess O2 Saturation O2 % ABG pCO2 ABG pO2 Mart Test O2 Delivery Device Vent Mode POC PEEP POC Pressure Suppt Blood Gas Notified Whom Blood Gas Notified Time Sodium 138 Potassium 3.8 Chloride 99 Carbon Dioxide 34.0 H Anion Gap 5 BUN 21 H Creatinine 0.87 Estim Creat Clear Calc 103.87 Est GFR (MDRD) Af Amer 114 Est GFR (MDRD) Non-Af 95 BUN/Creatinine Ratio 24.2 H Glucose 117 H Calcium 8.0 L MRSA (PCR) POC Glucose 114 H 04/24/18 06:44 WBC RBC Hgb Hct MCV MCH MCHC RDW RDW Differential Plt Count MPV Immature Gran % (Auto) Neut % (Auto) Lymph % (Auto) [place] % (Auto) Eos % (Auto) Baso % (Auto) Absolute Neuts (auto) Absolute Lymphs (auto) Total Counted Specimen Type ART Sample Site R Radial pH 7.42 Bicarbonate Actual 34.6 H POC Total CO2 36 Base Excess 10 H O2 Saturation 93 L O2 % 30 ABG pCO2 52.9 H ABG pO2 67 L Mart Test POS O2 Delivery Device Vent Vent Mode CPAP PS POC PEEP 5 POC Pressure Suppt 5 Blood Gas Notified Whom ICU MD Blood Gas Notified Time 646 Sodium Potassium Chloride Carbon Dioxide Anion Gap BUN Creatinine Estim Creat Clear Calc Est GFR (MDRD) Af Amer Est GFR (MDRD) Non-Af BUN/Creatinine Ratio Glucose Calcium MRSA (PCR) POC Glucose Microbiology 04/22/18 13:54 Sputum, Induced/Lukens Gram Stain - Final 04/22/18 13:54 Sputum, Induced/Lukens Respiratory Culture - Preliminary Culture exhibits no growth. 04/21/18 12:33 Blood Culture (Wb) - Left Hand Blood Culture - Preliminary No growth in 48 hours. 04/21/18 11:14 Blood Culture (Wb) - Right Hand Blood Culture - Preliminary No growth in 48 hours. 04/21/18 11:35 Urine, Catheterized Urine Culture - Final Proteus mirabilis 04/22/18 12:02 Urine Catheter - Catheter Streptococcus pneumoniae Antigen (M - Final 04/22/18 12:02 Urine Catheter - Catheter Legionella Antigen - Final Clinical Impression(s) from Imaging Studies KUB X-Ray 04/21/18 14:43 IMPRESSION: Radiographic findings suggest congestive heart failure. Electronically Signed: Joan Gorman MD at 11:58 EDT , Service support , Medical Necessity - Tobacco Use Smoking Status: Never smoker Assessment/Plan All Active Problems Acute and chronic respiratory failure with hypercapnia (Acute) Cellulitis, leg (Resolved) Hyperkalemia (Acute) HAY (acute kidney injury) (Acute) Cellulitis (Resolved) RECOMMENDATIONS: 1. Wean oxygen as tolerated 2. Initiate noninvasive therapy with same settings as outpatient. 3. Continue antibiotics, pending finalized culture results. 4. Wean FiO2 to maintain an oxygen saturation of 90%. 5. Bedside swallow evaluation, initiation of diet if appropriate 6. Continue to monitor in the intensive care unit IMPRESSIONS: 1. Acute hypoxemic and hypercarbic respiratory failure Potential etiologies include decompensated heart failure and/or underlying pulmonary infectious process. However, the patient's chest imaging studies are quite difficult to interpret due to poor quality secondary to the patient's body habitus. ABG at the end of the spontaneous breathing trial does show increased AA gradient. Patient should continue with diuresis over the next 24-48 hours. 2. Encephalopathy Likely metabolic in etiology with underlying CO2 retention identified. Patient does not overly cooperative during examination, but does appear to be appropriate when he does answer. 3. Severe sepsis As noted above, potential etiologies include lower extremity cellulitis, urinary tract infection and possible pulmonary infectious process. We will plan to continue to treat urinary tract infection. Please note that the patient was not volume resuscitated per sepsis guideline protocol, due to the concern for underlying decompensated heart failure. 4. Newly discovered biventricular heart failure Continue current supportive measures as noted above, including diuretics. Cardiology is currently consulted, but recommendations are not available at this time. 5. Incidental note of right orbital mass The patient's family was made aware of these radiographic findings. At the current time, they are not wishing to pursue any additional workup. 6. Super morbid obesity/diabetes/medical noncompliance/hypertension/depression/gout/GERD Complicates care, management, recovery and prognosis. Likely okay to continue home medications for now. Recommend Accu-Cheks and sliding scale coverage every 6 hours. TIME: 35 minutes of critical care time, independent of procedures, was spent addressing the patient's acute respiratory failure, encephalopathy, sepsis, orbital mass, review of all data and collaboration with the care team. (5:40 AM to 10 AM) Code Visit [id number]: [id number] Critical care first hour
[2018-04-24] MEDS: 0.9% NaCl IVPB Med Flush (250 mL) 15 ML IV (10:47)
[2018-04-24] MEDS: CHLORHEXIDINE GLUC 2% CLOTH 1 EACH TOWELETTE TOPICAL (10:47)
[2018-04-24] MEDS: Nystatin Powder 15gm Bottle 1 APPLIC TOPICAL ×2 (10:48→22:03)
--- NOTE | 2018-04-24 11:05 | NURSING ---
was asked to see patient for chronic lymphedema to bilateral lower legs. patient from a group home and was just extubated this am. pt forgetful at times. bilateral lower legs are red and edematous. there is some dry. flaky skin noted. there is one small open area noted to the right dorsal foot. no drainage noted to culture. the RLE is more red than the LLE. slightly warm to touch. patient states the right leg is more tender as well. scrotum very edematous as well. took four people to turn patient to side to assess sacrum. pt has a BMI of 72. sacrum with some dark discoloration, but no open areas noted at this time. patient does have some blistering to the right lateral chest with some serous drainage noted. cleansed the blistered areas with soap and water. pat dry. applied Adaptic and ABD pads to absorb the drainage. will monitor skin as needed. pt had nystatin ordered for abdominal folds.
[2018-04-24] MEDS: APIXABAN 5 MG TABLET PO ×2 (11:09→22:04)
[2018-04-24] MEDS: Pantoprazole Sodium 20 MG Tablet PO (11:09)
[2018-04-24] MEDS: Atenolol 50 MG Tablet PO (11:10)
[2018-04-24] MEDS: buPROPion (XL) 300 MG TABLET.XL PO (11:11)
--- NOTE | 2018-04-24 11:16 | NURSING ---
skin photo: left lower leg
--- NOTE | 2018-04-24 11:17 | NURSING ---
skin photo: right lower leg
[2018-04-24 11:45] LABS: Bedside Glucose 103 mg/dL (70-110)
--- NOTE | 2018-04-24 12:13 | CASEMGMT ---
Patient is from [facility]. SW faxed updates to [facility]. SW to follow for d/c back to [facility]. Jaqueline TOTH MSW
[2018-04-24 15:25] LABS: Bedside Glucose 53 mg/dL (70-110)
[2018-04-24 15:25] LABS: Bedside Glucose 57 mg/dL (70-110)
[2018-04-24 17:31] LABS: Bedside Glucose 82 mg/dL (70-110)
--- NOTE | 2018-04-24 19:37 | PCM.CONS.C ---
Reason for Consult Date of Consultation: 04/24/18 Reason for Consultation: Evaluation of cardiac status History of Present Illness: The patient is a 62-year-old male, with a history as outlined below, who presented from his retirement facility with dysarthric speech, hypoxia and lower extremity edema/erythema. The patient has a history of super morbid obesity and has a history of noncompliance with medical care. He has been essentially bedbound at his retirement facility for some time now. On presentation to the emergency department, the patient was noted to be afebrile, tachypneic and hypoxic. Laboratory evaluation revealed no evidence of a leukocytosis. Chemistry profile revealed elevated potassium to 5.2 with a serum bicarbonate of 33. The patient's lactate was elevated to 3.6, with an elevated BNP to 716. Urinalysis was positive for nitrites and leukocyte esterase with 1+ urine bacteria noted. An initial arterial blood gas obtained on 5 L/min via nasal cannula revealed a pH of 7.3 with a PCO2 of 63 and PO2 of 79. The patient was subsequently placed on BiPAP in the emergency department. His plain film chest imaging initially appeared to be concerning for congestive heart failure. A CT head was obtained which revealed evidence of a right orbital mass with right proptosis. Despite the use of noninvasive positive pressure ventilation, the patient remained exceedingly lethargic and a follow-up arterial blood gas revealed worsening acid-base status, with an elevated PCO2. Therefore, the decision was made to intubate the patient given his lack of response to noninvasive positive pressure ventilation. As part of his workup an echocardiogram was performed while in the intensive care unit and it demonstrated globally reduced left ventricular systolic function with an estimated ejection fraction of 20-25%. Biatrial enlargement was noted. Cardiology was called to evaluate the patient. Past Medical History Allergies/Adverse Reactions: Allergies No Known Allergies Allergy (Verified 04/21/18 11:15) Home Medications: Ambulatory Orders Medication Instructions Recorded Acetaminophen [Tylenol] 650 mg PO Q4H PRN 04/21/18 Albuterol Aerosols [Ventolin 2.5 mg INHALATION Q4H PRN PRN 04/21/18 Aerosols] Allopurinol [Zyloprim] 300 mg PO QHS 04/21/18 Atenolol [Tenormin (Beta Mckinley)] 50 mg PO BID 04/21/18 Bisacodyl [Dulcolax] 10 mg PO DAILY PRN 04/21/18 Bisacodyl [Dulcolax] 10 mg RECTAL DAILY PRN 04/21/18 Bismuth Subsalicylate 30 ml PO Q1H PRN 04/21/18 Dextrose [Glucose Gel] 1 dose PO PRN PRN 04/21/18 Dicyclomine HCl 20 mg PO DAILY 04/21/18 Doxycycline 100 mg PO DAILY 04/21/18 Furosemide [Lasix] 40 mg PO 0800,1200 04/21/18 Glucagon 1 mg IM X1 PRN 04/21/18 Guaifenesin [Mucinex] 600 mg PO Q12H PRN 04/21/18 Guaifenesin [Robitussin] 10 ml PO Q4H PRN PRN 04/21/18 Lactobacillus Rhamnosus GG 1 each PO DAILY 04/21/18 [Culturelle] Loperamide HCl [Imodium A-D] 4 mg PO Q6H PRN 04/21/18 Loratadine 10 mg PO DAILY PRN 04/21/18 Mag Hydrox/Al Hydrox/Simeth 30 ml PO Q4H PRN 04/21/18 [Antacid Suspension] Magnesium Hydroxide [Milk Of 30 ml PO DAILY PRN PRN 04/21/18 Magnesia] Menthol [Biofreeze] 1 applicatio TP Q2H PRN 04/21/18 Methyl Salicylate/Menthol [Muscle 1 applicatio TOPICAL Q2H PRN 04/21/18 Rub Cream] Methyl Salicylate/Menthol [Muscle 1 applicatio TP QHS 04/21/18 Rub Cream] Multivitamins,Therapeutic 1 tablet PO DAILY 04/21/18 [Multivitamin] Na Phos,M-B/Na Phos,Di-Ba [Fleet 120 ml RECTAL X1 PRN 04/21/18 Enema] Nystatin [Mycostatin] 1 applic TOPICAL TID PRN 04/21/18 Omeprazole [Prilosec] 20 mg PO DAILY 04/21/18 Oxycodone [Oxyir] 10 mg PO Q4H PRN PRN 04/21/18 Polyethylene Glycol 3350 [Miralax] 17 gm PO DAILY 04/21/18 Potassium Chloride [Klor-Con M20] 20 meq PO DAILY 04/21/18 Sennosides [Senna] 2 tab PO QHS 04/21/18 Simethicone 80 mg PO TID 04/21/18 buPROPion XL [Wellbutrin Xl] 300 mg PO DAILY 04/21/18 Past Medical History (Chronic Problems): Chronic Problems DM2 (diabetes mellitus, type 2) (Chronic) Venous stasis ulcer (Chronic) Lymphedema (Chronic) Poor hygiene (Chronic) Morbid obesity (Chronic) Surgical History: noncontributory - *Family History Maternal History Items: Unknown Paternal History Items: Unknown Smoking Status: Never smoker Alcohol: None Drugs: None Review of Systems - Review of Systems General: Denies: Fever, Night Sweats, Fatigue Cardiovascular: Reports: Shortness of Breath, Shortness of Breath at Rest, Shortness of Breath with Exertion. Denies: Chest Discomfort, Orthopnea, PND, Peripheral Edema, Palpitations, Lightheadedness, Dizziness, Near Syncope, Syncope Respiratory: Denies: Cough, Sputum Production, Hemoptysis Gastrointestinal: Denies: Hematemesis, Hematochezia, Melena Genitourinary: Denies: Dysuria, Hematuria Skin: Reports: Wounds. Denies: Rash Subjectve: Middle-aged man looking older than his stated age Objective: Vital Signs Temp Pulse Resp BP Pulse Ox 98.7 F 85 22 H 137/76 H 98 04/24/18 16:00 04/24/18 18:00 04/24/18 18:00 04/24/18 18:00 04/24/18 18:00 Oxygen Flow Rate (L/min) 1 Oxygen Delivery Method Nasal Cannula Weight: 572 lb 8.647 oz Body Mass Index (BMI) 77.7 Intake and Output for Last 24 Hours 04/22/18 04/23/18 04/24/18 23:59 23:59 23:59 Intake Total 1942.5 / 1942.5 3144.6 / 3144.6 2333.8 / 2333.8 Output Total 2325 / 2325 725 / 725 3100 / 3100 Balance -382.5 / -382.5 2419.6 / 2419.6 -766.2 / -766.2 General: Obese HEENT: PERRL, EOMI, Sclera Non Icteric Neck: Supple, Good ROM, No Lymph Node Enlargement Lungs: Diminished Cliff Bases Cardiovascular: Regular Rhythm, Normal S1, Normal S2, No Murmurs, No Rubs, No Gallops Vascular: No Carotid Bruits, Normal Femoral Pulses, Normal Radial Pulses, Normal Dorsalis Pedal Pulse, Normal Posterior Tibial Pulses Abdomen: Bowel Sounds Present, Soft, Non Tender, No HSM Extremities: No Cyanosis, No Clubbing, Bilaterel Edema +4, - - Significant skin discoloration and possible lymphedema Neurological: No Focal Motor or Sensory Deficit 04/24/18 04:15: WBC 9.9, RBC 4.88, Hgb 13.4, Hct 43.6, MCV 89.3, MCH 27.5, MCHC 30.7 L, RDW 19.8 H, RDW Differential 64.4 H, Plt Count 130 L, MPV 10.0, Immature Gran % (Auto) 0.100, Neut % (Auto) 85.3 H, Lymph % (Auto) 6.8 L, [place] % (Auto) 6.3, Eos % (Auto) 1.3, Baso % (Auto) 0.2, Absolute Neuts (auto) 8.4 H, Total Counted Not Reportable 04/24/18 04:15: Sodium 138, Potassium 3.8, Chloride 99, Carbon Dioxide 34.0 H, Anion Gap 5, BUN 21 H, Creatinine 0.87, Est GFR (MDRD) Af Amer 114, Est GFR (MDRD) Non-Af 95, BUN/Creatinine Ratio 24.2 H, Glucose 117 H, Calcium 8.0 L 04/24/18 06:44: pH 7.42, Bicarbonate Actual 34.6 H, POC Total CO2 36, Base Excess 10 H, O2 Saturation 93 L, ABG pCO2 52.9 H, ABG pO2 67 L, Mart Test POS EKG: Normal sinus rhythm with a rate of 100 bpm ECHO: Global reduction in left ventricular systolic function estimated EF 20-25% Assessment/Plan 1. Dilated cardiomyopathy The etiology of the above is not not entirely clear at this particular time. It could be secondary to a combination of hypertensive heart disease as well as his super morbidly obese status. My recommendation at this time would be to optimize his medical therapy by changing him from atenolol to carvedilol, and adding an VINCENT inhibitor as well as a diuretic to his regimen. Depending on his response to the above further recommendations will be made. 2. Hypertension Patient is noted to be hypertensive but we will continue to aggressively manage his medical therapy by optimizing his blood pressure medications. 3. Congestive heart failure Patient has no previously known episodes of congestive heart failure. The above is global and appears to be likely secondary to hypertensive heart disease or cardiomyopathy. Will recommend continue optimizing his care as noted above and depending on the response further recommendations will be made. Thank you for allowing me to participate in the care of your patient. Please don't hesitate to call if any issues arise
--- NOTE | 2018-04-24 19:43 | CON.PCM_ITS ---
Reason for Consult Date of Consultation: 04/24/18 Reason for Consultation: Evaluation of cardiac status History of Present Illness: The patient is a 62-year-old male, with a history as outlined below, who presented from his senior living facility with dysarthric speech, hypoxia and lower extremity edema/erythema. The patient has a history of super morbid obesity and has a history of noncompliance with medical care. He has been essentially bedbound at his senior living facility for some time now. On presentation to the emergency department, the patient was noted to be afebrile, tachypneic and hypoxic. Laboratory evaluation revealed no evidence of a leukocytosis. Chemistry profile revealed elevated potassium to 5.2 with a serum bicarbonate of 33. The patient's lactate was elevated to 3.6, with an elevated BNP to 716. Urinalysis was positive for nitrites and leukocyte cayetano ase with 1+ urine bacteria noted. An initial arterial blood gas obtained on 5 L/min via nasal cannula revealed a pH of 7.3 with a PCO2 of 63 and PO2 of 79. The patient was subsequently placed on BiPAP in the emergency department. His plain film chest imaging initially appeared to be concerning for congestive heart failure. A CT head was obtained which revealed evidence of a right orbital mass with right proptosis. Despite the use of noninvasive positive pressure ventilation, the patient remained exceedingly lethargic and a follow-up arterial blood gas revealed worsening acid-base status, with an elevated PCO2. Therefore, the decision was made to intubate the patient given his lack of response to noninvasive positive pressure ventilation. As part of his workup an echocardiogram was performed while in the intensive care unit and it demonstrated globally reduced left ventricular systolic function with an estimated ejection fraction of 20-25%. Biatrial enlargement was noted. Cardi ology was called to evaluate the patient. Past Medical History Allergies/Adverse Reactions: Allergies No Known Allergies Allergy (Verified 04/21/18 11:15) Home Medications: Ambulatory Orders Medication Instructions Recorded Acetaminophen [Tylenol] 650 mg PO Q4H PRN 04/21/18 Albuterol Aerosols [Ventolin 2.5 mg INHALATION Q4H PRN PRN 04/21/18 Aerosols] Allopurinol [Zyloprim] 300 mg PO QHS 04/21/18 Atenolol [Tenormin (Beta Mckinley)] 50 mg PO BID 04/21/18 Bisacodyl [Dulcolax] 10 mg PO DAILY PRN 04/21/18 Bisacodyl [Dulcolax] 10 mg RECTAL DAILY PRN 04/21/18 Bismuth Subsalicylate 30 ml PO Q1H PRN 04/21/18 Dextrose [Glucose Gel] 1 dose PO PRN PRN 04/21/18 Dicyclomine HCl 20 mg PO DAILY 04/21/18 Doxycycline 100 mg PO DAILY 04/21/18 Furosemide [Lasix] 40 mg PO 0800,1200 04/21/18 Glucagon 1 mg IM X1 PRN 04/21/18 Guaifenesin [Mucinex] 600 mg PO Q12H PRN 04/21/18 Guaifenesin [Robitussin] 10 ml PO Q4H PRN PRN 04/21/18 Lactobacillus Rhamnosus GG 1 each PO DAILY 04/21/18 [Culturelle] Loperamide HCl [Imodium A-D] 4 mg PO Q6H PRN 04/21/18 Loratadine 10 mg PO DAILY PRN 04/21/18 Mag Hydrox/Al Hydrox/Simeth 30 ml PO Q4H PRN 04/21/18 [Antacid Suspension] Magnesium Hydroxide [Milk Of 30 ml PO DAILY PRN PRN 04/21/18 Magnesia] Menthol [Biofreeze] 1 applicatio TP Q2H PRN 04/21/18 Methyl Salicylate/Menthol [Muscle 1 applicatio TOPICAL Q2H PRN 04/21/18 Rub Cream] Methyl Salicylate/Menthol [Muscle 1 applicatio TP QHS 04/21/18 Rub Cream] Multivitamins,Therapeutic 1 tablet PO DAILY 04/21/18 [Multivitamin] Na Phos,M-B/Na Phos,Di-Ba [Fleet 120 ml RECTAL X1 PRN 04/21/18 Enema] Nystatin [Mycostatin] 1 applic TOPICAL TID PRN 04/21/18 Omeprazole [Prilosec] 20 mg PO DAILY 04/21/18 Oxycodone [Oxyir] 10 mg PO Q4H PRN PRN 04/21/18 Polyethylene Glycol 3350 [Miralax] 17 gm PO DAILY 04/21/18 Potassium Chloride [Klor-Con M20] 20 meq PO DAILY 04/21/18 Sennosides [Senna] 2 tab PO QHS 04/21/18 Simethicone 80 mg PO TID 04/21/18 buPROPion XL [Wellbutrin Xl] 300 mg PO DAILY 04/21/18 Past Medical History (Chronic Problems): Chronic Problems DM2 (diabetes mellitus, type 2) (Chronic) Venous stasis ulcer (Chronic) Lymphedema (Chronic) Poor hygiene (Chronic) Morbid obesity (Chronic) Surgical History: noncontributory - *Family History Maternal History Items: Unknown Paternal History Items: Unknown Smoking Status: Never smoker Alcohol: None Drugs: None Review of Systems - Review of Systems General: Denies: Fever, Night Sweats, Fatigue Cardiovascular: Reports: Shortness of Breath, Shortness of Breath at Rest, Shortness of Breath with Exertion. Denies: Chest Discomfort, Orthopnea, PND, Peripheral Edema, Palpitations, Lightheadedness, Dizziness, Near Syncope, Syncope Respiratory: Denies: Cough, Sputum Production, Hemoptysis Gastrointestinal: Denies: Hematemesis, Hematochezia, Melena Genitourinary: Denies: Dysuria, Hematuria Skin: Reports: Wounds. Denies: Rash Subjectve: Middle-aged man looking older than his stated age Objective: Vital Signs Temp Pulse Resp BP Pulse Ox 98.7 F 85 22 H 137/76 H 98 04/24/18 16:00 04/24/18 18:00 04/24/18 18:00 04/24/18 18:00 04/24/18 18:00 Oxygen Flow Rate (L/min) 1 Oxygen Delivery Method Nasal Cannula Weight: 572 lb 8.647 oz Body Mass Index (BMI) 77.7 Intake and Output for Last 24 Hours 04/22/18 04/23/18 04/24/18 23:59 23:59 23:59 Intake Total 1942.5 / 1942.5 3144.6 / 3144.6 2333.8 / 2333.8 Output Total 2325 / 2325 725 / 725 3100 / 3100 Balance -382.5 / -382.5 2419.6 / 2419.6 -766.2 / -766.2 General: Obese HEENT: PERRL, EOMI, Sclera Non Icteric Neck: Supple, Good ROM, No Lymph Node Enlargement Lungs: Diminished Cliff Bases Cardiovascular: Regular Rhythm, Normal S1, Normal S2, No Murmurs, No Rubs, No Gallops Vascular: No Carotid Bruits, Normal Femoral Pulses, Normal Radial Pulses, Normal Dorsalis Pedal Pulse, Normal Posterior Tibial Pulses Abdomen: Bowel Sounds Present, Soft, Non Tender, No HSM Extremities: No Cyanosis, No Clubbing, Bilaterel Edema +4, - - Significant skin discoloration and possible lymphedema Neurological: No Focal Motor or Sensory Deficit 04/24/18 04:15: WBC 9.9, RBC 4.88, Hgb 13.4, Hct 43.6, MCV 89.3, MCH 27.5, MCHC 30.7 L, RDW 19.8 H, RDW Differential 64.4 H, Plt Count 130 L, MPV 10.0, Immature Gran % (Auto) 0.100, Neut % (Auto) 85.3 H, Lymph % (Auto) 6.8 L, [place] % (Auto) 6.3, Eos % (Auto) 1.3, Baso % (Auto) 0.2, Absolute Neuts (auto) 8.4 H, Total Counted Not Reportable 04/24/18 04:15: Sodium 138, Potassium 3.8, Chloride 99, Carbon Dioxide 34.0 H, Anion Gap 5, BUN 21 H, Creatinine 0.87, Est GFR (MDRD) Af Amer 114, Est GFR (MDRD) Non-Af 95, BUN/Creatinine Ratio 24.2 H, Glucose 117 H, Calcium 8.0 L 04/24/18 06:44: pH 7.42, Bicarbonate Actual 34.6 H, POC Total CO2 36, Base Excess 10 H, O2 Saturation 93 L, ABG pCO2 52.9 H, ABG pO2 67 L, Mart Test POS EKG: Normal sinus rhythm with a rate of 100 bpm ECHO: Global reduction in left ventricular systolic function estimated EF 20-25% Assessment/Plan 1. Dilated cardiomyopathy The etiology of the above is not not entirely clear at this particular time. It could be secondary to a combination of hypertensive heart disease as well as his super morbidly obese status. My recommendation at this time would be to optimize his medical therapy by changing him from atenolol to carvedilol, and adding an VINCENT inhibitor as well as a diuretic to his regimen. * Depending on his response to the above further recommendations will be made. * 2. Hypertension * Patient is noted to be hypertensive but we will continue to aggressively manage his medical therapy by optimizing his blood pressure medications. * 3. Congestive heart failure * Patient has no previously known episodes of congestive heart failure. The above is global and appears to be likely secondary to hypertensive heart disease or cardiomyopathy. * Will recommend continue optimizing his care as noted above and depending on the response further recommendations will be made. * * Thank you for allowing me to participate in the care of your patient. Please don't hesitate to call if any issues arise
--- NOTE | 2018-04-24 19:50 | NURSING ---
[facility] not allowing telephone order dispatcher at this time. Received orders via telephone from Dr. Brown and documented on paper physician order sheet and placed on paper MAR.
[2018-04-24] MEDS: Carvedilol 25 MG Tablet PO (22:02)
[2018-04-24] MEDS: Allopurinol 300 MG Tablet PO (22:05)
[2018-04-24 22:15] LABS: Bedside Glucose 92 mg/dL (70-110)
[2018-04-25] VITALS (23 sets, daily range): BP systolic 101–148; BP diastolic 57–92; PULSE 65–100; RESP 12–20; TEMP 36.2–36.7; O2SAT 90–100
[2018-04-25] MEDS: Furosemide 40 MG/4 ML Vial IV ×3 (05:53→20:57)
[2018-04-25] MEDS: 0.9% NaCl Peripheral Flush Adult/Peds IV ×2 (05:53→20:57)
[2018-04-25 06:21] LABS: Anion Gap 3 (5-15); BUN 18 mg/dL (7-18); BUN/Creat Ratio 23.2 RATIO (10-20); Calcium,Total 7.9 mg/dL (8.5-10.1); Chloride 100 mmol/L (98-107); Creatinine, Serum 0.78 mg/dL (0.70-1.30); EST Glomerular Filtration Rate 107 mL/min (>60); Est Glom Filt Rate - Afr Amer 130 mL/min (>60); Estimated Creatinine Clearance 115.86 ml/min; Glucose 77 mg/dL (74-106); Phosphorus 2.8 mg/dL (2.5-4.9); Potassium 3.8 mmol/L (3.5-5.1); Sodium Level 139 mmol/L (136-145)
[2018-04-25] MEDS: Ipratropium/Albuterol Sulfate 3 ML AMPUL.NEB INHALATION ×2 (06:32→13:20)
--- NOTE | 2018-04-25 07:16 | PCM.PN.INT ---
Subjective: Patient did okay overnight. Patient did refuse BiPAP therapy, but was able to tolerate 3 L nasal cannula. No fevers have been reported. Patient reports no subjective change compared to previous. General: Alert, Oriented x3, Cooperative - Intermittently, No apparent distress, - - Morbidly obese. Speaking in full sentences. Very little hoarseness noted. HEENT: Atraumatic, PERRLA, EOMI, Normocephalic, - - Slight scleral injection without icterus Oral: Moist Mucosa, No Gingival or Mucosal Lesions/ Ulcerations Neck: Supple, No Nodes, Trachea Midline, - - Unable to assess JVD secondary to body habitus Lungs: No rhonchi, No wheeze, No rales, Diminished, - - Unable to assess posteriorly. Cardiovascular: Regular rate, Regular Rhythm, Normal S1, Normal S2, No murmurs, No rub noted, No Gallop, - - Some brief periods of nonsustained V. tach noted overnight. Abdomen: Bowel Sounds Present, Soft, Non Tender, Non-Distended, Obese Extremities: No cyanosis, Clubbing, Edema Skin: - - No significant change compared to previous Musculoskeletal: No Tenderness to Palpation of Joints or Extremities Lymphatic: No Cervical, Supraclavicular, or Inguinal Adenopathy Neurological: Cranial nerves II-XII grossly intact, Neuro grossly intact Psych/Mental Status: Normal Affect, Appropriate Vital Signs Temp Pulse Resp BP Pulse Ox 36.6 C 84 15 148/92 H 100 04/25/18 06:00 04/25/18 06:00 04/25/18 06:00 04/25/18 06:00 04/25/18 06:00 Oxygen Flow Rate (L/min) 2 Oxygen Delivery Method Nasal Cannula Weight: 259.9 kg Body Mass Index (BMI) 77.7 Intake and Output for Last 24 Hours 04/23/18 04/24/18 04/25/18 23:59 23:59 23:59 Intake Total 3144.6 / 3144.6 2333.8 / 2333.8 310.8 / 310.8 Output Total 725 / 725 3100 / 3100 1500 / 1500 Balance 2419.6 / 2419.6 -766.2 / -766.2 -1189.2 / -1189.2 Labs (Last 48 Hours) 04/22/18 04/22/18 04/23/18 18:37 18:39 12:09 WBC RBC Hgb Hct MCV MCH MCHC RDW RDW Differential Plt Count MPV Immature Gran % (Auto) Neut % (Auto) Lymph % (Auto) [place] % (Auto) Eos % (Auto) Baso % (Auto) Absolute Neuts (auto) Absolute Lymphs (auto) Total Counted Specimen Type Sample Site pH Bicarbonate Actual POC Total CO2 Base Excess O2 Saturation O2 % ABG pCO2 ABG pO2 Mart Test O2 Delivery Device Vent Mode POC PEEP POC Pressure Suppt Blood Gas Notified Whom Blood Gas Notified Time Sodium Potassium Chloride Carbon Dioxide Anion Gap BUN Creatinine Estim Creat Clear Calc Est GFR (MDRD) Af Amer Est GFR (MDRD) Non-Af BUN/Creatinine Ratio Glucose Calcium Phosphorus Magnesium POC Glucose 57 L 53 L 118 H 04/23/18 04/24/18 04/24/18 17:41 00:37 04:15 WBC 9.9 RBC 4.88 Hgb 13.4 Hct 43.6 MCV 89.3 MCH 27.5 MCHC 30.7 L RDW 19.8 H RDW Differential 64.4 H Plt Count 130 L MPV 10.0 Immature Gran % (Auto) 0.100 Neut % (Auto) 85.3 H Lymph % (Auto) 6.8 L [place] % (Auto) 6.3 Eos % (Auto) 1.3 Baso % (Auto) 0.2 Absolute Neuts (auto) 8.4 H Absolute Lymphs (auto) 0.67 L Total Counted Not Reportable Specimen Type Sample Site pH Bicarbonate Actual POC Total CO2 Base Excess O2 Saturation O2 % ABG pCO2 ABG pO2 Mart Test O2 Delivery Device Vent Mode POC PEEP POC Pressure Suppt Blood Gas Notified Whom Blood Gas Notified Time Sodium Potassium Chloride Carbon Dioxide Anion Gap BUN Creatinine Estim Creat Clear Calc Est GFR (MDRD) Af Amer Est GFR (MDRD) Non-Af BUN/Creatinine Ratio Glucose Calcium Phosphorus Magnesium POC Glucose 108 128 H 04/24/18 04/24/18 04/24/18 04:15 06:06 06:44 WBC RBC Hgb Hct MCV MCH MCHC RDW RDW Differential Plt Count MPV Immature Gran % (Auto) Neut % (Auto) Lymph % (Auto) [place] % (Auto) Eos % (Auto) Baso % (Auto) Absolute Neuts (auto) Absolute Lymphs (auto) Total Counted Specimen Type ART Sample Site R Radial pH 7.42 Bicarbonate Actual 34.6 H POC Total CO2 36 Base Excess 10 H O2 Saturation 93 L O2 % 30 ABG pCO2 52.9 H ABG pO2 67 L Mart Test POS O2 Delivery Device Vent Vent Mode CPAP PS POC PEEP 5 POC Pressure Suppt 5 Blood Gas Notified Whom ICU MD Blood Gas Notified Time 646 Sodium 138 Potassium 3.8 Chloride 99 Carbon Dioxide 34.0 H Anion Gap 5 BUN 21 H Creatinine 0.87 Estim Creat Clear Calc 103.87 Est GFR (MDRD) Af Amer 114 Est GFR (MDRD) Non-Af 95 BUN/Creatinine Ratio 24.2 H Glucose 117 H Calcium 8.0 L Phosphorus Magnesium POC Glucose 114 H 04/24/18 04/24/18 04/24/18 11:42 17:25 22:11 WBC RBC Hgb Hct MCV MCH MCHC RDW RDW Differential Plt Count MPV Immature Gran % (Auto) Neut % (Auto) Lymph % (Auto) [place] % (Auto) Eos % (Auto) Baso % (Auto) Absolute Neuts (auto) Absolute Lymphs (auto) Total Counted Specimen Type Sample Site pH Bicarbonate Actual POC Total CO2 Base Excess O2 Saturation O2 % ABG pCO2 ABG pO2 Mart Test O2 Delivery Device Vent Mode POC PEEP POC Pressure Suppt Blood Gas Notified Whom Blood Gas Notified Time Sodium Potassium Chloride Carbon Dioxide Anion Gap BUN Creatinine Estim Creat Clear Calc Est GFR (MDRD) Af Amer Est GFR (MDRD) Non-Af BUN/Creatinine Ratio Glucose Calcium Phosphorus Magnesium POC Glucose 103 82 92 04/25/18 06:00 WBC RBC Hgb Hct MCV MCH MCHC RDW RDW Differential Plt Count MPV Immature Gran % (Auto) Neut % (Auto) Lymph % (Auto) [place] % (Auto) Eos % (Auto) Baso % (Auto) Absolute Neuts (auto) Absolute Lymphs (auto) Total Counted Specimen Type Sample Site pH Bicarbonate Actual POC Total CO2 Base Excess O2 Saturation O2 % ABG pCO2 ABG pO2 Mart Test O2 Delivery Device Vent Mode POC PEEP POC Pressure Suppt Blood Gas Notified Whom Blood Gas Notified Time Sodium 139 Potassium 3.8 Chloride 100 Carbon Dioxide 36.0 H Anion Gap 3 L BUN 18 Creatinine 0.78 Estim Creat Clear Calc 115.86 Est GFR (MDRD) Af Amer 130 Est GFR (MDRD) Non-Af 107 BUN/Creatinine Ratio 23.2 H Glucose 77 Calcium 7.9 L Phosphorus 2.8 Magnesium 2.0 POC Glucose Microbiology 04/22/18 13:54 Sputum, Induced/Lukens Gram Stain - Final 04/22/18 13:54 Sputum, Induced/Lukens Respiratory Culture - Final Presumptive C albicans 04/21/18 12:33 Blood Culture (Wb) - Left Hand Blood Culture - Preliminary No growth in 48 hours. 04/21/18 11:14 Blood Culture (Wb) - Right Hand Blood Culture - Preliminary No growth in 48 hours. 04/21/18 11:35 Urine, Catheterized Urine Culture - Final Proteus mirabilis Clinical Impression(s) from Imaging Studies KUB X-Ray 04/21/18 14:43 IMPRESSION: Radiographic findings suggest congestive heart failure. Electronically Signed: Joan Gorman MD at 11:58 EDT , Service support , Medical Necessity - Tobacco Use Smoking Status: Never smoker Assessment/Plan All Active Problems Acute and chronic respiratory failure with hypercapnia (Acute) Cellulitis, leg (Resolved) Hyperkalemia (Acute) HAY (acute kidney injury) (Acute) Cellulitis (Resolved) RECOMMENDATIONS: 1. Wean oxygen as tolerated, continue diuresis 2. BiPAP 16/8 centimeters of water if patient agreeable with sleep 3. Complete antibiotic course. 4. Wean FiO2 to maintain an oxygen saturation of 90%. 5. Okay to transfer from the intensive care unit IMPRESSIONS: 1. Acute hypoxemic and hypercarbic respiratory failure Potential etiologies include decompensated heart failure and/or underlying pulmonary infectious process. However, the patient's chest imaging studies are quite difficult to interpret due to poor quality secondary to the patient's body habitus. Patient did not agree to BiPAP overnight. Fortunately, patient's oxygenation has been supported with minimal nasal cannula oxygen. Patient is at risk for CO2 retention, especially with sleep. Continue with diuresis. 2. Encephalopathy Likely metabolic in etiology with underlying CO2 retention identified. Patient does not overly cooperative during examination, but does appear to be appropriate when he does answer. 3. Severe sepsis RESOLVED > as noted above, potential etiologies include lower extremity cellulitis, urinary tract infection and possible pulmonary infectious process. We will plan to continue to treat urinary tract infection. Please note that the patient was not volume resuscitated per sepsis guideline protocol, due to the concern for underlying decompensated heart failure. 4. Newly discovered biventricular heart failure Continue current supportive measures as noted above, including diuretics. Cardiology is currently consulted. Defer nonsustained V. tach to cardiology. 5. Incidental note of right orbital mass The patient's family was made aware of these radiographic findings. At the current time, they are not wishing to pursue any additional workup. 6. Super morbid obesity/diabetes/medical noncompliance/hypertension/depression/gout/GERD Complicates care, management, recovery and prognosis. Likely okay to continue home medications for now. Recommend Accu-Cheks and sliding scale coverage every 6 hours. Code Visit Inpatient E&M: 33958 [facility] Hosp L3
[2018-04-25] MEDS: Carvedilol 25 MG Tablet PO ×2 (08:11→20:57)
[2018-04-25] MEDS: Lisinopril 5 MG Tablet PO (08:11)
[2018-04-25] MEDS: APIXABAN 5 MG TABLET PO ×2 (08:12→20:57)
[2018-04-25] MEDS: buPROPion (XL) 300 MG TABLET.XL PO (08:12)
[2018-04-25] MEDS: Pantoprazole Sodium 20 MG Tablet PO (08:13)
[2018-04-25] MEDS: Nystatin Powder 15gm Bottle 1 APPLIC TOPICAL ×2 (08:13→20:57)
[2018-04-25] MEDS: CHLORHEXIDINE GLUC 2% CLOTH 1 EACH TOWELETTE TOPICAL (08:15)
--- NOTE | 2018-04-25 08:41 | PCM.PN.CARD ---
Subjectve: Patient seen and evaluated. Objective: Vital Signs Temp Pulse Resp BP Pulse Ox 97.8 F 85 20 H 127/69 H 100 04/25/18 06:00 04/25/18 08:00 04/25/18 08:00 04/25/18 08:00 04/25/18 08:00 Oxygen Flow Rate (L/min) 2 Oxygen Delivery Method Nasal Cannula Weight: 572 lb 15.702 oz Body Mass Index (BMI) 77.7 Intake and Output for Last 24 Hours 04/23/18 04/24/18 04/25/18 23:59 23:59 23:59 Intake Total 3144.6 / 3144.6 2333.8 / 2333.8 310.8 / 310.8 Output Total 725 / 725 3100 / 3100 1500 / 1500 Balance 2419.6 / 2419.6 -766.2 / -766.2 -1189.2 / -1189.2 General: Awake, Alert, Oriented x 3 HEENT: PERRL, EOMI, Sclera Non Icteric Neck: Supple, Good ROM, No Lymph Node Enlargement Lungs: Clear to auscultation Cardiovascular: Regular Rhythm, Normal S1, Normal S2, No Murmurs, No Rubs, No Gallops Vascular: No Carotid Bruits, Normal Femoral Pulses, Normal Radial Pulses, Normal Dorsalis Pedal Pulse, Normal Posterior Tibial Pulses Abdomen: Bowel Sounds Present, Soft, Non Tender, No HSM, No Organomegaly Extremities: No Cyanosis, No Clubbing, No edema, Bilaterel Edema +4 Neurological: No Focal Motor or Sensory Deficit 04/25/18 06:00: Sodium 139, Potassium 3.8, Chloride 100, Carbon Dioxide 36.0 H, Anion Gap 3 L, BUN 18, Creatinine 0.78, Est GFR (MDRD) Af Amer 130, Est GFR (MDRD) Non-Af 107, BUN/Creatinine Ratio 23.2 H, Glucose 77, Calcium 7.9 L, Phosphorus 2.8, Magnesium 2.0 Rhythm: EKG: ECHO: Stress Test: Cardiac Cath: PCI: CT Surgery: Holter monitor: EPS: PPM: CXR: Chest CT Scan: Medical Necessity - Tobacco Use Smoking Status: Never smoker Assessment/Plan 1. Dilated cardiomyopathy The etiology of the above is not not entirely clear at this particular time. It could be secondary to a combination of hypertensive heart disease as well as his super morbidly obese status. My recommendation at this time would be to optimize his medical therapy by changing him from atenolol to carvedilol, and adding an VINCENT inhibitor as well as a diuretic to his regimen. Depending on his response to the above further recommendations will be made. 2. Hypertension Patient is noted to be hypertensive but we will continue to aggressively manage his medical therapy by optimizing his blood pressure medications. 3. Congestive heart failure Patient has no previously known episodes of congestive heart failure. The above is global and appears to be likely secondary to hypertensive heart disease or cardiomyopathy. Will recommend continue optimizing his care as noted above and depending on the response further recommendations will be made. Thank you for allowing me to participate in the care of your patient. Please don't hesitate to call if any issues arise
--- NOTE | 2018-04-25 08:46 | PN.CARD_ITS ---
Subjectve: Patient seen and evaluated. Objective: Vital Signs Temp Pulse Resp BP Pulse Ox 97.8 F 85 20 H 127/69 H 100 04/25/18 06:00 04/25/18 08:00 04/25/18 08:00 04/25/18 08:00 04/25/18 08:00 Oxygen Flow Rate (L/min) 2 Oxygen Delivery Method Nasal Cannula Weight: 572 lb 15.702 oz Body Mass Index (BMI) 77.7 Intake and Output for Last 24 Hours 04/23/18 04/24/18 04/25/18 23:59 23:59 23:59 Intake Total 3144.6 / 3144.6 2333.8 / 2333.8 310.8 / 310.8 Output Total 725 / 725 3100 / 3100 1500 / 1500 Balance 2419.6 / 2419.6 -766.2 / -766.2 -1189.2 / -1189.2 General: Awake, Alert, Oriented x 3 HEENT: PERRL, EOMI, Sclera Non Icteric Neck: Supple, Good ROM, No Lymph Node Enlargement Lungs: Clear to auscultation Cardiovascular: Regular Rhythm, Normal S1, Normal S2, No Murmurs, No Rubs, No Gallops Vascular: No Carotid Bruits, Normal Femoral Pulses, Normal Radial Pulses, Normal Dorsalis Pedal Pulse, Normal Posterior Tibial Pulses Abdomen: Bowel Sounds Present, Soft, Non Tender, No HSM, No Organomegaly Extremities: No Cyanosis, No Clubbing, No edema, Bilaterel Edema +4 Neurological: No Focal Motor or Sensory Deficit 04/25/18 06:00: Sodium 139, Potassium 3.8, Chloride 100, Carbon Dioxide 36.0 H, Anion Gap 3 L, BUN 18, Creatinine 0.78, Est GFR (MDRD) Af Amer 130, Est GFR (MDRD) Non-Af 107, BUN/Creatinine Ratio 23.2 H, Glucose 77, Calcium 7.9 L, Phosphorus 2.8, Magnesium 2.0 Rhythm: EKG: ECHO: Stress Test: Cardiac Cath: PCI: CT Surgery: Holter monitor: EPS: PPM: CXR: Chest CT Scan: Medical Necessity - Tobacco Use Smoking Status: Never smoker Assessment/Plan 1. Dilated cardiomyopathy The etiology of the above is not not entirely clear at this particular time. It could be secondary to a combination of hypertensive heart disease as well as his super morbidly obese status. My recommendation at this time would be to optimize his medical therapy by changing him from atenolol to carvedilol, and adding an VINCENT inhibitor as well as a diuretic to his regimen. * Depending on his response to the above further recommendations will be made. * 2. Hypertension * Patient is noted to be hypertensive but we will continue to aggressively manage his medical therapy by optimizing his blood pressure medications. * 3. Congestive heart failure * Patient has no previously known episodes of congestive heart failure. The above is global and appears to be likely secondary to hypertensive heart dise ase or cardiomyopathy. * Will recommend continue optimizing his care as noted above and depending on the response further recommendations will be made. * * Thank you for allowing me to participate in the care of your patient. Please don't hesitate to call if any issues arise
--- NOTE | 2018-04-25 08:50 | PCM.PN.HOSP ---
Patient Problems: Active and Suspected Problems Acute and chronic respiratory failure with hypercapnia (Acute) Subjective: No fever since admission. On ekg monitor tech, his heart rate varies sometimes regular sometimes irregular Vitals/I&O's: Vital Signs Temp Pulse Resp BP Pulse Ox 97.8 F 85 20 H 127/69 H 100 04/25/18 06:00 04/25/18 08:00 04/25/18 08:00 04/25/18 08:00 04/25/18 08:00 Oxygen Flow Rate (L/min) 2 Oxygen Delivery Method Nasal Cannula Weight: 572 lb 15.702 oz Body Mass Index (BMI) 77.7 Intake and Output for Last 24 Hours 04/23/18 04/24/18 04/25/18 23:59 23:59 23:59 Intake Total 3144.6 / 3144.6 2333.8 / 2333.8 310.8 / 310.8 Output Total 725 / 725 3100 / 3100 1500 / 1500 Balance 2419.6 / 2419.6 -766.2 / -766.2 -1189.2 / -1189.2 General: Alert, Oriented x3, Cooperative HEENT: Atraumatic, PERRLA, EOMI, Normocephalic Neck: Supple, No JVD, Negative Carotid Bruits Lungs: Diminished, Rhonchi Cardiovascular: Regular rate, Normal S1, Normal S2, No murmurs Abdomen: Bowel Sounds Present, Soft, Non Tender, - - Difficult exam because of super morbid body habitus Extremities: Capillary Refill Less than 3 Seconds, Edema Skin: Rash Present - Diffuse erythema secondary to venous congestion with soft tissue hyperplasia and hyper trophy, especially in lower extremities Musculoskeletal: No Tenderness to Palpation of Joints or Extremities Neurological: Cranial nerves II-XII grossly intact Psych/Mental Status: Normal Affect, Appropriate Microbiology Past 72 Hours 04/22/18 13:54 Sputum, Induced/Lukens Gram Stain - Final 04/22/18 13:54 Sputum, Induced/Lukens Respiratory Culture - Final Presumptive C albicans 04/21/18 12:33 Blood Culture (Wb) - Left Hand Blood Culture - Preliminary No growth in 48 hours. 04/21/18 11:14 Blood Culture (Wb) - Right Hand Blood Culture - Preliminary No growth in 48 hours. 04/21/18 11:35 Urine, Catheterized Urine Culture - Final Proteus mirabilis 04/22/18 12:02 Urine Catheter - Catheter Streptococcus pneumoniae Antigen (M - Final 04/22/18 12:02 Urine Catheter - Catheter Legionella Antigen - Final Laboratory Results 04/22/18 18:37: POC Glucose 57 L 04/22/18 18:39: POC Glucose 53 L 04/24/18 11:42: POC Glucose 103 04/24/18 17:25: POC Glucose 82 04/24/18 22:11: POC Glucose 92 04/25/18 06:00: Sodium 139, Potassium 3.8, Chloride 100, Carbon Dioxide 36.0 H, Anion Gap 3 L, BUN 18, Creatinine 0.78, Estim Creat Clear Calc 115.86, Est GFR (MDRD) Af Amer 130, Est GFR (MDRD) Non-Af 107, BUN/Creatinine Ratio 23.2 H, Glucose 77, Calcium 7.9 L, Phosphorus 2.8, Magnesium 2.0 Current Medications Albuterol/Ipratropium (Duoneb) 3 ml INHALATION Q6H.RT [facility] Last Admin: 04/25/18 06:32 Dose: 3 ml Allopurinol (Zyloprim) 300 mg PO QHS [facility] Last Admin: 04/24/18 22:05 Dose: 300 mg Apixaban (Eliquis) 5 mg PO BID [facility] Last Admin: 04/25/18 08:12 Dose: 5 mg Bupropion HCl (Wellbutrin Xl) 300 mg PO DAILY [facility] Last Admin: 04/25/18 08:12 Dose: 300 mg Carvedilol (Coreg) 25 mg PO BID [facility] Last Admin: 04/25/18 08:11 Dose: 25 mg Chlorhexidine Gluconate () 1 each TOPICAL DAILY [facility] Last Admin: 04/25/18 08:15 Dose: 1 each Furosemide (Lasix) 40 mg IV Q8 [facility] Last Admin: 04/25/18 05:53 Dose: 40 mg Sodium Chloride () 250 mls @ 15 mls/hr IV .[id number] PRN PRN Reason: SALINE FLUSH Last Admin: 04/24/18 10:47 Dose: 15 mls/hr Sodium Chloride () 250 mls @ 15 mls/hr IV .[id number] PRN PRN Reason: SALINE FLUSH Ceftriaxone Sodium 2 gm/ (Sodium Chloride) 50 mls @ 100 mls/hr IV Q24 [facility] Last Admin: 04/24/18 10:47 Dose: 100 mls/hr Lisinopril (Zestril) 5 mg PO DAILY [facility] Last Admin: 04/25/18 08:11 Dose: 5 mg Nutritional Formula (Jc - [place] Flavor) 1 packet PO BIDCM [facility] Last Admin: 04/25/18 08:10 Dose: 1 packet Nystatin (Mycostatin Powder) 1 applic TOPICAL BID [facility]; Protocol Last Admin: 04/25/18 08:13 Dose: 1 applicatio Pantoprazole Sodium (Protonix) 20 mg PO DAILY [facility] Last Admin: 04/25/18 08:13 Dose: 20 mg Sodium Chloride () 5 - 30 ml IV UD PRN PRN Reason: SALINE FLUSH Last Admin: 04/25/18 05:53 Dose: 20 ml Medical Necessity - Tobacco Use Smoking Status: Never smoker Assessment/Plan All Active Problems Acute and chronic respiratory failure with hypercapnia (Acute) Cellulitis, leg (Resolved) Hyperkalemia (Acute) HAY (acute kidney injury) (Acute) Cellulitis (Resolved) There is a 62-year-old male with history of super morbid obesity type 2 diabetes, bedbound, skilled nursing resident for altered mental status, confusion and lethargy and somnolent with slurred speech, dysarthria from ER. In ED, ABG showed hypercapnic and slightly acidotic pH 7.28. Initially, patient was put on BiPAP but there was no improvement clinically and on repeat ABG, thereafter patient was intubated. Patient has chronic venous stasis, lymphedema and scrotal edema with chronic soft tissue hyperplasia and hypertrophy. 1. Acute encephalopathy, most probably metabolic secondary to hypercapnia/CO2 narcosis: Patient extubated on 04/24. Currently on oxygen through nasal cannula. 2. Acute on chronic hypoxic and hypercapnic combined respiratory failure. This appears to be multifactorial including obstructive sleep apnea and perhaps obesity alveolar hypoventilation syndrome and pulmonary hypertension and biventricular systolic and diastolic combined heart failure. 3. Severe sepsis, exact etiology unclear but probably right lower extremity cellulitis. Lactic acid was 5.3, 4.3. Blood cultures and urine cultures are pending. Patient initially was started on IV cefazolin and doxycycline to cover Streptococcus pyogenous and MRSA but later on antibiotic spectrum was broadened to IV Zosyn. Chest x-ray is suboptimal quality because of morbid obese body habitus. Antibiotic, Zosyn was discontinued on 04/24 Wound care nurse consult 4. 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 Left and right atria are severely enlarged. Septal wall motion consistent with RV pressure and volume overload. Severely dilated right ventricle with moderate global right ventricular systolic dysfunction. Mild AR and MR. Mild TR, RVSP 32 mmHg. Patient is diuresed with IV Lasix. Regenerator Operator is being consulted. Cardiology consult and follow-up reviewed. Plan is to control blood pressure, diuresis and medical management for now. 5. Arrhythmia: Paroxysmal A. fib: On ekg monitor tech patient heart rate fluctuates between A. fib, sinus arrhythmia/ sinus tachycardia although P wave is indistinct/absent. Couple PVCs. One EKG shows A. fib. Overall with high morbidity, patient is on Eliquis. Incidental finding of right orbital mass with right proptosis on CT head. Super morbid obesity. Microbiology Past 72 Hours 04/22/18 13:54 Sputum, Induced/Lukens Gram Stain - Final 04/22/18 13:54 Sputum, Induced/Lukens Respiratory Culture - Preliminary Culture exhibits no growth. 04/21/18 12:33 Blood Culture (Wb) - Left Hand Blood Culture - Preliminary No growth in 48 hours. 04/21/18 11:14 Blood Culture (Wb) - Right Hand Blood Culture - Preliminary No growth in 48 hours. 04/21/18 11:35 Urine, Catheterized Urine Culture - Final Proteus mirabilis 04/22/18 12:02 Urine Catheter - Catheter Streptococcus pneumoniae Antigen (M - Final 04/22/18 12:02 Urine Catheter - Catheter Legionella Antigen - Final Laboratory Results 04/23/18 12:09: POC Glucose 118 H 04/23/18 17:41: POC Glucose 108 04/24/18 00:37: POC Glucose 128 H 04/24/18 04:15: WBC 9.9, RBC 4.88, Hgb 13.4, Hct 43.6, MCV 89.3, MCH 27.5, MCHC 30.7 L, RDW 19.8 H, RDW Differential 64.4 H, Plt Count 130 L, MPV 10.0, Immature Gran % (Auto) 0.100, Neut % (Auto) 85.3 H, Lymph % (Auto) 6.8 L, [place] % (Auto) 6.3, Eos % (Auto) 1.3, Baso % (Auto) 0.2, Absolute Neuts (auto) 8.4 H, Absolute Lymphs (auto) 0.67 L, Total Counted Not Reportable 04/24/18 04:15: Sodium 138, Potassium 3.8, Chloride 99, Carbon Dioxide 34.0 H, Anion Gap 5, BUN 21 H, Creatinine 0.87, Estim Creat Clear Calc 103.87, Est GFR (MDRD) Af Amer 114, Est GFR (MDRD) Non-Af 95, BUN/Creatinine Ratio 24.2 H, Glucose 117 H, Calcium 8.0 L 04/24/18 06:06: POC Glucose 114 H 04/24/18 06:44: Specimen Type ART, Sample Site R Radial, pH 7.42, Bicarbonate Actual 34.6 H, POC Total CO2 36, Base Excess 10 H, O2 Saturation 93 L, O2 % 30, ABG pCO2 52.9 H, ABG pO2 67 L, Mart Test POS, O2 Delivery Device Vent, Vent Mode CPAP PS, POC PEEP 5, POC Pressure Suppt 5, Blood Gas Notified Whom ICU MD, Blood Gas Notified Time 646 Clinical Impression(s) from Imaging Studies Brain CT 04/21/18 11:32 IMPRESSION: No CT evident acute intracranial brain pathology. Right orbital mass with right proptosis. Differential considerations include hemangioma versus pseudotumor versus rhabdomyoma/rhabdomyosarcoma. Recommend further evaluation with dedicated orbital MRI. Chest X-Ray 04/22/18 13:17 IMPRESSION: Extremely limited by patient's size and underexposure. Right PICC line appears to terminate in the area of the cavoatrial junction. Code Visit Inpatient E&M: 50764 Subs Hosp L3
--- NOTE | 2018-04-25 08:55 | PN_ITS ---
Patient Problems: Active and Suspected Problems Acute and chronic respiratory failure with hypercapnia (Acute) Subjective: No fever since admission. On equipment monitor phototypesetting, his heart rate varies sometimes regular sometimes irregular Vitals/I&O's: Vital Signs Temp Pulse Resp BP Pulse Ox 97.8 F 85 20 H 127/69 H 100 04/25/18 06:00 04/25/18 08:00 04/25/18 08:00 04/25/18 08:00 04/25/18 08:00 Oxygen Flow Rate (L/min) 2 Oxygen Delivery Method Nasal Cannula Weight: 572 lb 15.702 oz Body Mass Index (BMI) 77.7 Intake and Output for Last 24 Hours 04/23/18 04/24/18 04/25/18 23:59 23:59 23:59 Intake Total 3144.6 / 3144.6 2333.8 / 2333.8 310.8 / 310.8 Output Total 725 / 725 3100 / 3100 1500 / 1500 Balance 2419.6 / 2419.6 -766.2 / -766.2 -1189.2 / -1189.2 General: Alert, Oriented x3, Cooperative HEENT: Atraumatic, PERRLA, EOMI, Normocephalic Neck: Supple, No JVD, Negative Carotid Bruits Lungs: Diminished, Rhonchi Cardiovascular: Regular rate, Normal S1, Normal S2, No murmurs Abdomen: Bowel Sounds Present, Soft, Non Tender, - - Difficult exam because of super morbid body habitus Extremities: Capillary Refill Less than 3 Seconds, Edema Skin: Rash Present - Diffuse erythema secondary to venous congestion with soft tissue hyperplasia and hyper trophy, especially in lower extremities Musculoskeletal: No Tenderness to Palpation of Joints or Extremities Neurological: Cranial nerves II-XII grossly intact Psych/Mental Status: Normal Affect, Appropriate Microbiology Past 72 Hours 04/22/18 13:54 Sputum, Induced/Lukens Gram Stain - Final 04/22/18 13:54 Sputum, Induced/Lukens Respiratory Culture - Final Presumptive C albicans 04/21/18 12:33 Blood Culture (Wb) - Left Hand Blood Culture - Preliminary No growth in 48 hours. 04/21/18 11:14 Blood Culture (Wb) - Right Hand Blood Culture - Preliminary No growth in 48 hours. 04/21/18 11:35 Urine, Catheterized Urine Culture - Final Proteus mirabilis 04/22/18 12:02 Urine Catheter - Catheter Streptococcus pneumoniae Antigen (M - Final 04/22/18 12:02 Urine Catheter - Catheter Legionella Antigen - Final Laboratory Results 04/22/18 18:37: POC Glucose 57 L 04/22/18 18:39: POC Glucose 53 L 04/24/18 11:42: POC Glucose 103 04/24/18 17:25: POC Glucose 82 04/24/18 22:11: POC Glucose 92 04/25/18 06:00: Sodium 139, Potassium 3.8, Chloride 100, Carbon Dioxide 36.0 H, Anion Gap 3 L, BUN 18, Creatinine 0.78, Estim Creat Clear Calc 115.86, Est GFR (MDRD) Af Amer 130, Est GFR (MDRD) Non-Af 107, BUN/Creatinine Ratio 23.2 H, Glucose 77, Calcium 7.9 L, Phosphorus 2.8, Magnesium 2.0 Current Medications Albuterol/Ipratropium (Duoneb) 3 ml INHALATION Q6H.RT [facility] Last Admin: 04/25/18 06:32 Dose: 3 ml Allopurinol (Zyloprim) 300 mg PO QHS [facility] Last Admin: 04/24/18 22:05 Dose: 300 mg Apixaban (Eliquis) 5 mg PO BID [facility] Last Admin: 04/25/18 08:12 Dose: 5 mg Bupropion HCl (Wellbutrin Xl) 300 mg PO DAILY [facility] Last Admin: 04/25/18 08:12 Dose: 300 mg Carvedilol (Coreg) 25 mg PO BID [facility] Last Admin: 04/25/18 08:11 Dose: 25 mg Chlorhexidine Gluconate () 1 each TOPICAL DAILY [facility] Last Admin: 04/25/18 08:15 Dose: 1 each Furosemide (Lasix) 40 mg IV Q8 [facility] Last Admin: 04/25/18 05:53 Dose: 40 mg Sodium Chloride () 250 mls @ 15 mls/hr IV .[id number] PRN PRN Reason: SALINE FLUSH Last Admin: 04/24/18 10:47 Dose: 15 mls/hr Sodium Chloride () 250 mls @ 15 mls/hr IV .[id number] PRN PRN Reason: SALINE FLUSH Ceftriaxone Sodium 2 gm/ (Sodium Chloride) 50 mls @ 100 mls/hr IV Q24 [facility] Last Admin: 04/24/18 10:47 Dose: 100 mls/hr Lisinopril (Zestril) 5 mg PO DAILY [facility] Last Admin: 04/25/18 08:11 Dose: 5 mg Nutritional Formula (Jc - [place] Flavor) 1 packet PO BIDCM [facility] Last Admin: 04/25/18 08:10 Dose: 1 packet Nystatin (Mycostatin Powder) 1 applic TOPICAL BID [facility]; Protocol Last Admin: 04/25/18 08:13 Dose: 1 applicatio Pantoprazole Sodium (Protonix) 20 mg PO DAILY [facility] Last Admin: 04/25/18 08:13 Dose: 20 mg Sodium Chloride () 5 - 30 ml IV UD PRN PRN Reason: SALINE FLUSH Last Admin: 04/25/18 05:53 Dose: 20 ml Medical Necessity - Tobacco Use Smoking Status: Never smoker Assessment/Plan All Active Problems Acute and chronic respiratory failure with hypercapnia (Acute) Cellulitis, leg (Resolved) Hyperkalemia (Acute) HAY (acute kidney injury) (Acute) Cellulitis (Resolved) There is a 62-year-old male with history of super morbid obesity type 2 diabetes, bedbound, senior care resident for altered mental status, confusion and lethargy and somnolent with slurred speech, dysarthria from ER. In ED, ABG showed hypercapnic and slightly acidotic pH 7.28. Initially, patient was put on BiPAP but there was no improvement clinically and on repeat ABG, thereafter patient was intubated. Patient has chronic venous stasis, lymphedema and scrotal edema with chronic soft tissue hyperplasia and hypertrophy. 1. Acute encephalopathy, most probably metabolic secondary to hypercapnia/CO2 narcosis: Patient extubated on 04/24. Currently on oxygen through nasal cannula. 2. Acute on chronic hypoxic and hypercapnic combined respiratory failure. This appears to be multifactorial including obstructive sleep apnea and perhaps obesity alveolar hypoventilation syndrome and pulmonary hypertension and biventricular systolic and diastolic combined heart failure. 3. Severe sepsis, exact etiology unclear but probably right lower extremity cellulitis. Lactic acid was 5.3, 4.3. Blood cultures and urine cultures are pending. Patient initially was started on IV cefazolin and doxycycline to cover Streptococcus pyogenous and MRSA but later on antibiotic spectrum was broadened to IV Zosyn. Chest x-ray is suboptimal quality because of morbid obese body habitus. Antibiotic, Zosyn was discontinued on 04/24 Wound care nurse consult 4. 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 Left and right atria are severely enlarged. Septal wall motion consistent with RV pressure and volume overload. Severely dilated right ventricle with moderate global right ventricular systolic dysfunction. Mild AR and MR. Mild TR, RVSP 32 mmHg. Patient is diuresed with IV Lasix. Experienced Truck Driver is being consulted. Cardiology consult and follow-up reviewed. Plan is to control blood pressure, diuresis and medical management for now. 5. Arrhythmia: Paroxysmal A. fib: On equipment monitor phototypesetting patient heart rate fluctuates between A. fib, sinus arrhythmia/ sinus tachycardia although P wave is indistinct/absent. Couple PVCs. One EKG shows A. fib. Overall with high morbidity, patient is on Eliquis. Incidental finding of right orbital mass with right proptosis on CT head. Super morbid obesity. Microbiology Past 72 Hours 04/22/18 13:54 Sputum, Induced/Lukens Gram Stain - Final 04/22/18 13:54 Sputum, Induced/Lukens Respiratory Culture - Preliminary Culture exhibits no growth. 04/21/18 12:33 Blood Culture (Wb) - Left Hand Blood Culture - Preliminary No growth in 48 hours. 04/21/18 11:14 Blood Culture (Wb) - Right Hand Blood Culture - Preliminary No growth in 48 hours. 04/21/18 11:35 Urine, Catheterized Urine Culture - Final Proteus mirabilis 04/22/18 12:02 Urine Catheter - Catheter Streptococcus pneumoniae Antigen (M - Final 04/22/18 12:02 Urine Catheter - Catheter Legionella Antigen - Final Laboratory Results 04/23/18 12:09: POC Glucose 118 H 04/23/18 17:41: POC Glucose 108 04/24/18 00:37: POC Glucose 128 H 04/24/18 04:15: WBC 9.9, RBC 4.88, Hgb 13.4, Hct 43.6, MCV 89.3, MCH 27.5, MCHC 30.7 L, RDW 19.8 H, RDW Differential 64.4 H, Plt Count 130 L, MPV 10.0, Immature Gran % (Auto) 0.100, Neut % (Auto) 85.3 H, Lymph % (Auto) 6.8 L, [place] % (Auto) 6.3, Eos % (Auto) 1.3, Baso % (Auto) 0.2, Absolute Neuts (auto) 8.4 H, Absolute Lymphs (auto) 0.67 L, Total Counted Not Reportable 04/24/18 04:15: Sodium 138, Potassium 3.8, Chloride 99, Carbon Dioxide 34.0 H, Anion Gap 5, BUN 21 H, Creatinine 0.87, Estim Creat Clear Calc 103.87, Est GFR (MDRD) Af Amer 114, Est GFR (MDRD) Non-Af 95, BUN/Creatinine Ratio 24.2 H, Glucose 117 H, Calcium 8.0 L 04/24/18 06:06: POC Glucose 114 H 04/24/18 06:44: Specimen Type ART, Sample Site R Radial, pH 7.42, Bicarbonate Actual 34.6 H, POC Total CO2 36, Base Excess 10 H, O2 Saturation 93 L, O2 % 30, ABG pCO2 52.9 H, ABG pO2 67 L, Mart Test POS, O2 Delivery Device Vent, Vent Mode CPAP PS, POC PEEP 5, POC Pressure Suppt 5, Blood Gas Notified Whom ICU MD, Blood Gas Notified Time 646 Clinical Impression(s) from Imaging Studies Brain CT 04/21/18 11:32 IMPRESSION: No CT evident acute intracranial brain pathology. Right orbital mass with right proptosis. Differential considerations include hemangioma versus pseudotumor versus rhabdomyoma/rhabdomyosarcoma. Recommend further evaluation with dedicated orbital MRI. Chest X-Ray 04/22/18 13:17 IMPRESSION: Extremely limited by patient's size and underexposure. Right PICC line appears to terminate in the area of the cavoatrial junction. Code Visit Inpatient E&M: 93058 Subs Hosp L3
--- NOTE | 2018-04-25 18:45 | NURSING ---
1800-pt unable to remember channel of what he normally watches on tv and unable to figure out remote usage. pt with tele pulled off and sitting on table. stated, i didnt know i had to leave that integrity consultant light useage re went over with pt and on chest for use
--- NOTE | 2018-04-25 19:12 | CPS ---
This RT entered pt room in which he immediately was yelling about the TV remote not working. Pt handed remote to RT and this RT then changed channels asking pt what he preferred to watch. Pt began yelling saying it's ridiculous you don't have channels 0-200! RT explained to pt that the hospital offers basic cable and can help him find the channel he would like to watch. Pt then ripped remote from RT hand and yelled quit interrupting me then proceeded to throw it across the room just missing RT's face. Pt then offered breathing treatment at this time he ripped and threw the aerosol mask as well. RT exited the room and nursing aware.
[2018-04-25] MEDS: Allopurinol 300 MG Tablet PO (20:56)
--- NOTE | 2018-04-25 23:22 | NURSING ---
RN took over care at this time.
[2018-04-26] VITALS (8 sets, daily range): BP systolic 115–128; BP diastolic 67–78; PULSE 75–96; RESP 18; TEMP 36.1–36.6; O2SAT 84–98
[2018-04-26] MEDS: Furosemide 40 MG/4 ML Vial IV (05:24)
[2018-04-26] MEDS: 0.9% NaCl Peripheral Flush Adult/Peds IV ×3 (05:25→10:47)
--- NOTE | 2018-04-26 08:11 | PCM.PN.HOSP ---
Patient Problems: Active and Suspected Problems Acute and chronic respiratory failure with hypercapnia (Acute) Subjective: No fever overnight. No fever. Patient on 2 L of oxygen through nasal cannula. Breathing nonlabored. Patient has not recently sent thinks that chronic problem secondary to obesity hypoventilation syndrome and hypoxia Vitals/I&O's: Vital Signs Temp Pulse Resp BP Pulse Ox 97.9 F 92 18 115/67 96 04/26/18 05:23 04/26/18 07:42 04/26/18 05:23 04/26/18 05:23 04/26/18 05:23 Oxygen Flow Rate (L/min) 2 Oxygen Delivery Method Nasal Cannula Weight: 561 lb 15.332 oz Body Mass Index (BMI) 77.7 Intake and Output for Last 24 Hours 04/24/18 04/25/18 04/26/18 23:59 23:59 23:59 Intake Total 2333.8 / 2333.8 550.8 / 550.8 Output Total 3100 / 3100 2300 / 2300 1999 Balance -766.2 / -766.2 -1749.2 / -1749.2 -1999 General: Alert, Oriented x3, Cooperative HEENT: Atraumatic, PERRLA, EOMI, Normocephalic Neck: Supple, No JVD, Negative Carotid Bruits Lungs: No rhonchi, No wheeze, Diminished Cardiovascular: Regular rate, Normal S1, Normal S2, No murmurs Abdomen: Bowel Sounds Present, Soft, Non Tender Skin: - - Bilateral lymphedema with chronic erythema. Soft tissue hypertrophy is chronic ischemic changes including weeping, drainage of clear serous fluid. Microbiology Past 72 Hours 04/22/18 13:54 Sputum, Induced/Lukens Gram Stain - Final 04/22/18 13:54 Sputum, Induced/Lukens Respiratory Culture - Final Presumptive C albicans 04/21/18 12:33 Blood Culture (Wb) - Left Hand Blood Culture - Preliminary No growth in 48 hours. 04/21/18 11:14 Blood Culture (Wb) - Right Hand Blood Culture - Preliminary No growth in 48 hours. 04/21/18 11:35 Urine, Catheterized Urine Culture - Final Proteus mirabilis Current Medications Albuterol/Ipratropium (Duoneb) 3 ml INHALATION Q6HWA.RT ANNEMARIE Last Admin: 04/25/18 19:12 Dose: Not Given Allopurinol (Zyloprim) 300 mg PO QHS [facility] Last Admin: 04/25/18 20:56 Dose: 300 mg Apixaban (Eliquis) 5 mg PO BID [facility] Last Admin: 04/25/18 20:57 Dose: 5 mg Bupropion HCl (Wellbutrin Xl) 300 mg PO DAILY [facility] Last Admin: 04/25/18 08:12 Dose: 300 mg Carvedilol (Coreg) 25 mg PO BID [facility] Last Admin: 04/25/18 20:57 Dose: 25 mg Chlorhexidine Gluconate () 1 each TOPICAL DAILY [facility] Last Admin: 04/25/18 08:15 Dose: 1 each Furosemide (Lasix) 40 mg IV Q8 [facility] Last Admin: 04/26/18 05:24 Dose: 40 mg Sodium Chloride () 250 mls @ 15 mls/hr IV .[id number] PRN PRN Reason: SALINE FLUSH Last Admin: 04/24/18 10:47 Dose: 15 mls/hr Sodium Chloride () 250 mls @ 15 mls/hr IV .[id number] PRN PRN Reason: SALINE FLUSH Ceftriaxone Sodium 2 gm/ (Sodium Chloride) 50 mls @ 100 mls/hr IV Q24 [facility] Last Admin: 04/25/18 09:24 Dose: 100 mls/hr Lisinopril (Zestril) 5 mg PO DAILY [facility] Last Admin: 04/25/18 08:11 Dose: 5 mg Nutritional Formula (Jc - Blair Flavor) [facility] Last Admin: 04/25/18 14:13 Dose: 1 packet Nystatin (Mycostatin Powder) 1 applic TOPICAL BID [facility]; Protocol Last Admin: 04/25/18 20:57 Dose: 1 applicatio Pantoprazole Sodium (Protonix) 20 mg PO DAILY [facility] Last Admin: 04/25/18 08:13 Dose: 20 mg Sodium Chloride () 5 - 30 ml IV UD PRN PRN Reason: SALINE FLUSH Last Admin: 04/26/18 05:25 Dose: 10 ml Medical Necessity - Tobacco Use Smoking Status: Never smoker Assessment/Plan All Active Problems Acute and chronic respiratory failure with hypercapnia (Acute) Cellulitis, leg (Resolved) Hyperkalemia (Acute) HAY (acute kidney injury) (Acute) Cellulitis (Resolved) There is a 62-year-old male with history of super morbid obesity type 2 diabetes, bedbound, [facility] resident for altered mental status, confusion and lethargy and somnolent with slurred speech, dysarthria from ER. In ED, ABG showed hypercapnic and slightly acidotic pH 7.28. Initially, patient was put on BiPAP but there was no improvement clinically and on repeat ABG, thereafter patient was intubated. Patient has chronic venous stasis, lymphedema and scrotal edema with chronic soft tissue hyperplasia and hypertrophy. 1. Acute encephalopathy, most probably metabolic secondary to hypercapnia/CO2 narcosis: Patient extubated on 04/24. Currently on oxygen through nasal cannula. 2. Acute on chronic hypoxic and hypercapnic combined respiratory failure. This appears to be multifactorial including obstructive sleep apnea and perhaps obesity alveolar hypoventilation syndrome and pulmonary hypertension and biventricular systolic and diastolic combined heart failure. 3. Severe sepsis, exact etiology unclear but probably right lower extremity cellulitis. Lactic acid was 5.3, 4.3. Blood culture negative for 48 hours. Urine culture grew Proteus mirabilis less than 1000; sensitive to cephalosporin but resistant to fluoroquinolones. Patient initially was started on IV cefazolin and doxycycline to cover Streptococcus pyogenous and MRSA but later on antibiotic spectrum was broadened to Zosyn and then changed to ceftriaxone based on culture. On 1015 280. Chest x-ray is suboptimal quality because of morbid obese body habitus. Wound care nurse consult 4. 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 Left and right atria are severely enlarged. Septal wall motion consistent with RV pressure and volume overload. Severely dilated right ventricle with moderate global right ventricular systolic dysfunction. Mild AR and MR. Mild TR, RVSP 32 mmHg. Patient is diuresed with IV Lasix. Pocket Assembler is being consulted. Cardiology consult and follow-up reviewed. Plan is to control blood pressure, diuresis and medical management for now. 5. Arrhythmia: Paroxysmal A. fib: On electronic device monitor patient heart rate fluctuates between A. fib, sinus arrhythmia/ sinus tachycardia although P wave is indistinct/absent. Couple PVCs. One EKG shows A. fib. Overall with high morbidity, patient is on Eliquis. Incidental finding of right orbital mass with right proptosis on CT head. Super morbid obesity. Microbiology Past 72 Hours 04/22/18 13:54 Sputum, Induced/Lukens Gram Stain - Final 04/22/18 13:54 Sputum, Induced/Lukens Respiratory Culture - Final Presumptive C albicans 04/21/18 12:33 Blood Culture (Wb) - Left Hand Blood Culture - Preliminary No growth in 48 hours. 04/21/18 11:14 Blood Culture (Wb) - Right Hand Blood Culture - Preliminary No growth in 48 hours. 04/21/18 11:35 Urine, Catheterized Urine Culture - Final Proteus mirabilis Clinical Impression(s) from Imaging Studies Brain CT 04/21/18 11:32 IMPRESSION: No CT evident acute intracranial brain pathology. Right orbital mass with right proptosis. Differential considerations include hemangioma versus pseudotumor versus rhabdomyoma/rhabdomyosarcoma. Recommend further evaluation with dedicated orbital MRI. Chest X-Ray 04/22/18 13:17 IMPRESSION: Extremely limited by patient's size and underexposure. Right PICC line appears to terminate in the area of the cavoatrial junction. Code Visit Inpatient E&M: 85122 Subs Hosp L3
--- NOTE | 2018-04-26 08:30 | PN.CARD_ITS ---
Subjectve: Patient seen and evaluated. Objective: Vital Signs Temp Pulse Resp BP Pulse Ox 97.9 F 92 18 115/67 96 04/26/18 05:23 04/26/18 07:42 04/26/18 05:23 04/26/18 05:23 04/26/18 07:38 Oxygen Flow Rate (L/min) 2 Oxygen Delivery Method Nasal Cannula Weight: 561 lb 15.332 oz Body Mass Index (BMI) 77.7 Intake and Output for Last 24 Hours 04/24/18 04/25/18 04/26/18 23:59 23:59 23:59 Intake Total 2333.8 / 2333.8 550.8 / 550.8 Output Total 3100 / 3100 2300 / 2300 1999 Balance -766.2 / -766.2 -1749.2 / -1749.2 -1999 General: Awake, Alert, Oriented x 3 HEENT: PERRL, EOMI, Sclera Non Icteric Neck: Supple, Good ROM, No Lymph Node Enlargement Lungs: Clear to auscultation Cardiovascular: Regular Rhythm, Normal S1, Normal S2, No Murmurs, No Rubs, No Gallops Abdomen: Obese Extremities: Bilaterel Edema +4 Neurological: No Focal Motor or Sensory Deficit Psych/Mental Status: Appropriate Rhythm: EKG: ECHO: Stress Test: Cardiac Cath: PCI: CT Surgery: Holter monitor: EPS: PPM: CXR: Chest CT Scan: Medical Necessity - Tobacco Use Smoking Status: Never smoker Assessment/Plan 1. Dilated cardiomyopathy The etiology of the above is not not entirely clear at this particular time. It could be secondary to a combination of hypertensive heart disease as well as his super morbidly obese status. My recommendation at this time would be to optimize his medical therapy by continuing carvedilol, and continuing an VINCENT inhibitor as well as a diuretic to his regimen. * Depending on his response to the above further recommendations will be made. * At this time there are no plans to perform any invasive therapy on him 2. Hypertension * Patient is noted to be hypertensive but we will continue to aggressively man age his medical therapy by optimizing his blood pressure medications. * 3. Congestive heart failure * Patient has no previously known episodes of congestive heart failure. The above is global and appears to be likely secondary to hypertensive heart disease or cardiomyopathy. * Will recommend continue optimizing his care as noted above and depending on the response further recommendations will be made. * * Thank you for allowing me to participate in the care of your patient. Please don't hesitate to call if any issues arise
--- NOTE | 2018-04-26 09:11 | CASEMGMT ---
KYLE spoke with physician and he told to have the SNF start the pre-cert. KYLE faxed information to [facility] and wrote on fax face sheet to start pre-cert. KYLE called [facility] and Rebeca's voice mailbox was full. Plan: d/c back to [facility] pending pre-cert Jaqueline TOTH MSW
[2018-04-26] MEDS: Nystatin Powder 15gm Bottle 1 APPLIC TOPICAL (09:23)
[2018-04-26] MEDS: APIXABAN 5 MG TABLET PO (09:24)
[2018-04-26] MEDS: Carvedilol 25 MG Tablet PO (09:24)
[2018-04-26] MEDS: Lisinopril 5 MG Tablet PO (09:24)
[2018-04-26] MEDS: buPROPion (XL) 300 MG TABLET.XL PO (09:24)
[2018-04-26] MEDS: Pantoprazole Sodium 20 MG Tablet PO (09:25)
[2018-04-26] MEDS: CHLORHEXIDINE GLUC 2% CLOTH 1 EACH TOWELETTE TOPICAL (09:26)
--- NOTE | 2018-04-26 10:25 | CASEMGMT ---
KYLE did talk with Rebeca at [facility] and she will start the pre-cert. Jaqueline TOTH MSW
[2018-04-26] MEDS: 0.9% NaCl IVPB Med Flush (250 mL) 15 ML IV (10:27)
--- NOTE | 2018-04-26 11:50 | PCM.TXEXTCAR ---
- Diet 04/24/18 11:23 Diet: Cardiac: Calorie-Controlled Food consistency:: Regular Liquid Consistency:: Regular/Thin Is pt able to select menu?: Yes How many daily calories?: 2200 calorie - Routine Orders/Code Status Suppository Type: Dulcolax 10mg Suppository Frequency: Daily PRN Routine Lab Work: CBC - every week, starting on 04/28/18, BMP - every week, starting on 04/28/18 - Wound(s) bilat lower extremities Wound Type: chronic lymphedema with some scattered dry crusted areas Posterior bilat knees Wound Type: Pressure Injury RFA Wound Type: Abrasion right lateral chest Wound Type: cluster of small draining blisters Dressing Change: Dry Sterile Dressing - Therapies Weight Bearing: Weight bearing as tolerated Physical Therapy: Eval and Treat Occupational Therapy: Eval and Treat Speech Therapy: Eval and Treat - Allergies/Procedures Done in Hospital Allergies/Adverse Reactions: Allergies No Known Allergies Allergy (Verified 04/21/18 11:15) - Type of Care/Length of Stay Estimated LOS: More Than 30 Days Type of Care Needed: Skilled Rehab Potential: Fair Prognosis: Fair - Additional Orders/Day of Discharge Day of Discharge: 04/26/18 - Dietary and Speech Recommendations Dietitian Recommendations/Changes: Rec 2200 calorie / cardiac diet. Rec Jc bid to help w/ skin healing. - Follow Up Care Primary Care Physician: Scott Salazar MD [Primary Care Provider] - Please follow up with your Primary Care Physician in: in 2 weeks Please Follow Up With: Miah Nguyen MD When: in 2-3 weeks Please Follow Up With: Saúl Brown MD When: in 2-4 weeks
--- NOTE | 2018-04-26 13:02 | NURSING ---
student charting reviewed by this rn.
--- NOTE | 2018-04-26 13:29 | PCM.DC.SUM ---
Discharge Date and Diagnosis Date of Admission: 04/21/18 Date of Discharge: 04/26/18 - Primary Discharge Diagnosis Active and Suspected Problems Acute and chronic respiratory failure with hypercapnia (Acute) - Secondary Discharge Diagnosis Chronic Problems DM2 (diabetes mellitus, type 2) (Chronic) Venous stasis ulcer (Chronic) Lymphedema (Chronic) Poor hygiene (Chronic) Morbid obesity (Chronic) Hospital Course and Treatment Consultations 04/22/18 06:43 Consult: Onc/Wound/casualty claim adjuster Routine Comment: Summary of Care Provided: [] There is a 62-year-old male with history of super morbid obesity type 2 diabetes, bedbound, retirement resident for altered mental status, confusion and lethargy and somnolent with slurred speech, dysarthria from ER. In ED, ABG showed hypercapnic and slightly acidotic pH 7.28. Initially, patient was put on BiPAP but there was no improvement clinically and on repeat ABG, thereafter patient was intubated. Patient has chronic venous stasis, lymphedema and scrotal edema with chronic soft tissue hyperplasia and hypertrophy. 1. Acute encephalopathy, most probably metabolic secondary to hypercapnia/CO2 narcosis: Patient extubated on 04/24. Currently on oxygen through nasal cannula. She was advised to use BiPAP at night but seems noncompliant. 2. Acute on chronic hypoxic and hypercapnic combined respiratory failure. This appears to be multifactorial including obstructive sleep apnea and perhaps obesity alveolar hypoventilation syndrome and pulmonary hypertension and biventricular systolic and diastolic combined heart failure. 3. Severe sepsis, exact etiology unclear but probably right lower extremity cellulitis. Lactic acid was 5.3, 4.3. Blood culture negative for 48 hours. Urine culture grew Proteus mirabilis less than 1000; sensitive to cephalosporin but resistant to fluoroquinolones. Patient initially was started on IV cefazolin and doxycycline to cover Streptococcus pyogenous and MRSA but later on antibiotic spectrum was broadened to Zosyn and then changed to ceftriaxone based on culture. On 1015 280. Chest x-ray is suboptimal quality because of morbid obese body habitus. The patient was seen by wound care nurseJanel. Advised dressing status open to air. Chronic scattered dry crusted areas lower extremities and scrotum. 4. 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 Left and right atria are severely enlarged. Septal wall motion consistent with RV pressure and volume overload. Severely dilated right ventricle with moderate global right ventricular systolic dysfunction. Mild AR and MR. Mild TR, RVSP 32 mmHg. Patient is diuresed with IV Lasix. Railway Engineer is being consulted. Cardiology consult and follow-up reviewed. Plan is to control blood pressure, diuresis and medical management for now. 5. Arrhythmia: Paroxysmal A. fib: On charger operator helper patient heart rate fluctuates between A. fib, sinus arrhythmia/ sinus tachycardia although P wave is indistinct/absent. Couple PVCs. One EKG shows A. fib. Overall with high morbidity, patient is on Eliquis. Incidental finding of right orbital mass with right proptosis on CT head. Super morbid obesity. The patient is discharged on cefadroxil 1 g 3 times daily based on super morbid obesity BMI 70.2. Follow-up cardiology recommended. Discharged on lasix 40 mg tid. As potassium was initially high 5.2 and he has maintained his potassium without potassium supplement, he is not discharged on potassium supplement. follow up BMP ordered and F/U PCP in case he needs K-DUR. Discharge medication reconciliation done. Discharge follow-up instructions completed. Discharge process and follow-up discussed with the patient's niece, present in the room Total time spent, exact 35 minutes on discharge meds reconciliation, examination, review of imaging and blood test and discussion with the patient on follow-up instructions. Objective: The patient was seen at the day of discharge. Please see progress note of same date 04/26/2018 General: Alert, Oriented x3, Cooperative HEENT: Atraumatic, PERRLA, EOMI, Normocephalic Neck: Supple, No JVD, Negative Carotid Bruits Lungs: No rhonchi, No wheeze, Diminished Cardiovascular: Regular rate, Normal S1, Normal S2, No murmurs Abdomen: Bowel Sounds Present, Soft, Non Tender Skin: - - Bilateral lymphedema with chronic erythema. Soft tissue hypertrophy is chronic ischemic changes including weeping, drainage of clear serous fluid. Neuro: Alert awake oriented x3. Difficult to examine deep tendon reflexes, sensory and motor exam. Bedbound. Psychiatric: Normal affect - Physical Exam Vital Signs Temp Pulse Resp BP Pulse Ox 97 F L 90 18 125/68 H 98 04/26/18 09:19 04/26/18 11:05 04/26/18 09:19 04/26/18 09:19 04/26/18 09:19 Oxygen Flow Rate (L/min) 2 Oxygen Delivery Method Room Air Weight: 561 lb 15.332 oz Body Mass Index (BMI) 77.7 Intake and Output for Last 24 Hours 04/24/18 04/25/18 04/26/18 23:59 23:59 23:59 Intake Total 2333.8 / 2333.8 550.8 / 550.8 290 / 290 Output Total 3100 / 3100 2300 / 2300 2550 / 2550 Balance -766.2 / -766.2 -1749.2 / -1749.2 -2260 / -2260 Microbiology Past 72 Hours 04/22/18 13:54 Gram Stain - Final Sputum, Induced/Lukens Respiratory Culture - Final Presumptive C albicans 04/21/18 12:33 Blood Culture - Preliminary Blood Culture (Wb) - Left Hand No growth in 48 hours. 04/21/18 11:14 Blood Culture - Preliminary Blood Culture (Wb) - Right Hand No growth in 48 hours. Home Medications: Medications to take at Discharge Acetaminophen [Tylenol] 650 mg PO Q4H PRN 04/21/18 Allopurinol [Zyloprim] 300 mg PO QHS 04/21/18 Bisacodyl [Dulcolax] 10 mg PO DAILY PRN 04/21/18 Bisacodyl [Dulcolax] 10 mg RECTAL DAILY PRN 04/21/18 Bismuth Subsalicylate 30 ml PO Q1H PRN 04/21/18 Dextrose [Glucose Gel] 1 dose PO PRN PRN 04/21/18 Dicyclomine HCl 20 mg PO DAILY 04/21/18 Glucagon 1 mg IM X1 PRN 04/21/18 Guaifenesin [Mucinex] 600 mg PO Q12H PRN 04/21/18 Guaifenesin [Robitussin] 10 ml PO Q4H PRN PRN 04/21/18 Lactobacillus Rhamnosus GG [Culturelle] 1 each PO DAILY 04/21/18 Loperamide HCl [Imodium A-D] 4 mg PO Q6H PRN 04/21/18 Mag Hydrox/Al Hydrox/Simeth [Antacid Suspension] 30 ml PO Q4H PRN 04/21/18 Magnesium Hydroxide [Milk Of Magnesia] 30 ml PO DAILY PRN PRN 04/21/18 Menthol [Biofreeze] 1 applicatio TP Q2H PRN 04/21/18 Methyl Salicylate/Menthol [Muscle Rub Cream] 1 applicatio TOPICAL Q2H PRN 04/21/18 Methyl Salicylate/Menthol [Muscle Rub Cream] 1 applicatio TP QHS 04/21/18 Multivitamins,Therapeutic [Multivitamin] 1 tablet PO DAILY 04/21/18 Na Phos,M-B/Na Phos,Di-Ba [Fleet Enema] 120 ml RECTAL X1 PRN 04/21/18 Nystatin [Mycostatin] 1 applic TOPICAL TID PRN 04/21/18 Omeprazole [Prilosec] 20 mg PO DAILY 04/21/18 Polyethylene Glycol 3350 [Miralax] 17 gm PO DAILY 04/21/18 Sennosides [Senna] 2 tab PO QHS 04/21/18 Simethicone 80 mg PO TID 04/21/18 buPROPion XL [Wellbutrin Xl] 300 mg PO DAILY 04/21/18 Albuterol Aerosols [Ventolin Aerosols] 2.5 mg INHALATION Q2H PRN PRN #0 04/26/18 Allopurinol [Zyloprim] 300 mg PO QHS tablet 04/26/18 Apixaban [Eliquis] 5 mg PO BID tablet 04/26/18 Carvedilol [Coreg (Beta Mckinley)] 25 mg PO BID tablet 04/26/18 Cefadroxil 1 gm PO BID #6 tab 04/26/18 Furosemide [Lasix] 40 mg PO TID #0 04/26/18 Ipratropium/Albuterol Sulfate [Duoneb] 3 ml INHALATION Q6H ampul.neb 04/26/18 Lisinopril [Zestril] 5 mg PO DAILY tablet 04/26/18 Loratadine 10 mg PO DAILY PRN PRN #0 04/26/18 buPROPion XL [Wellbutrin Xl] 300 mg PO DAILY tablet.xl 04/26/18 Following Prescrptions Were Given to Patient: Cefadroxil 1 gm PO BID #6 tab Primary Care Physician: Salazar,Scott, MD [Primary Care Provider] - Please follow up with your Primary Care Physician in: in 2 weeks Please Follow Up With: Miah Nguyen MD When: in 2-3 weeks Please Follow Up With: Saúl Brown MD When: in 2-4 weeks Medical Necessity - Tobacco Use Smoking Status: Never smoker Meaningful Use Info Meaningful Use Diagnoses (Choose all that apply): None applicable Code Visit Inpatient E&M: 69235 Disch Hosp
--- NOTE | 2018-04-26 13:36 | PCM.PROGNOTE ---
Patient Problems: Active and Suspected Problems Acute and chronic respiratory failure with hypercapnia (Acute) Subjective: Patient did well overnight. No hemodynamic instability is been reported. Patient has been doing well on nasal cannula oxygen. No BiPAP was required overnight. - Physical Exam General: Alert, Cooperative - Intermittently, No apparent distress, - - Morbidly obese. Speaking in full sentences. HEENT: Atraumatic, PERRLA, EOMI, Normocephalic, - - No scleral icterus or injection noted. Oral: Moist Mucosa, No Gingival or Mucosal Lesions/ Ulcerations Neck: Supple, No Nodes, Trachea Midline, - - JVD difficult to assess secondary to body habitus Lungs: No rhonchi, No wheeze, No rales, Diminished, - Cardiovascular: Regular rate, Regular Rhythm, Normal S1, Normal S2, No murmurs, No rub noted, No Gallop, - - Distant heart sounds secondary to body habitus Abdomen: Bowel Sounds Present, Soft, Non Tender, Non-Distended, Obese Extremities: No clubbing, No cyanosis, Edema Skin: - - No significant change compared to previous Musculoskeletal: No Tenderness to Palpation of Joints or Extremities Lymphatic: No Cervical, Supraclavicular, or Inguinal Adenopathy Neurological: Cranial nerves II-XII grossly intact, Neuro grossly intact, Motor Exam 5/5 strength throughout Psych/Mental Status: Alert and oriented to time, place, person, mood and affect Vital Signs Temp Pulse Resp BP Pulse Ox 36.1 C L 90 18 125/68 H 98 04/26/18 09:19 04/26/18 11:05 04/26/18 09:19 04/26/18 09:19 04/26/18 09:19 Oxygen Flow Rate (L/min) 2 Oxygen Delivery Method Room Air Weight: 254.9 kg Body Mass Index (BMI) 77.7 Intake and Output for Last 24 Hours 04/24/18 04/25/18 04/26/18 23:59 23:59 23:59 Intake Total 2333.8 / 2333.8 550.8 / 550.8 290 / 290 Output Total 3100 / 3100 2300 / 2300 2550 / 2550 Balance -766.2 / -766.2 -1749.2 / -1749.2 -2260 / -2260 Microbiology Past 72 Hours 04/22/18 13:54 Gram Stain - Final Sputum, Induced/Lukens Respiratory Culture - Final Presumptive C albicans 04/21/18 12:33 Blood Culture - Preliminary Blood Culture (Wb) - Left Hand No growth in 48 hours. 04/21/18 11:14 Blood Culture - Preliminary Blood Culture (Wb) - Right Hand No growth in 48 hours. Medical Necessity - Tobacco Use Smoking Status: Never smoker Assessment/Plan All Active Problems Acute and chronic respiratory failure with hypercapnia (Acute) Cellulitis, leg (Resolved) Hyperkalemia (Acute) HAY (acute kidney injury) (Acute) Cellulitis (Resolved) RECOMMENDATIONS: 1. Wean oxygen as tolerated, continue diuresis 2. Recommend BiPAP 16/8 centimeters of water if patient agreeable with sleep 3. Complete antibiotic course. 4. Wean FiO2 to maintain an oxygen saturation of 90%. 5. Okay to discharge from pulmonary perspective. Follow-up only if requested IMPRESSIONS: 1. Acute hypoxemic and hypercarbic respiratory failure Potential etiologies include decompensated heart failure and/or underlying pulmonary infectious process. However, the patient's chest imaging studies are quite difficult to interpret due to poor quality secondary to the patient's body habitus. Patient did not agree to BiPAP overnight. Fortunately, patient's oxygenation has been supported with minimal nasal cannula oxygen. Patient is at risk for CO2 retention, especially with sleep. Continue with diuresis. Patient is currently hemodynamically stable on room air. Okay to transfer from a pulmonary perspective. No outpatient follow-up is likely indicated unless patient requests and is agreeable to following recommendations. 2. Encephalopathy Likely metabolic in etiology with underlying CO2 retention identified. Patient does not overly cooperative during examination, but does appear to be appropriate when he does answer. 3. Severe sepsis RESOLVED > as noted above, potential etiologies include lower extremity cellulitis, urinary tract infection and possible pulmonary infectious process. We will plan to continue to treat urinary tract infection. Please note that the patient was not volume resuscitated per sepsis guideline protocol, due to the concern for underlying decompensated heart failure. 4. Newly discovered biventricular heart failure Continue current supportive measures as noted above, including diuretics. Cardiology is currently consulted. Defer nonsustained V. tach to cardiology. Patient would likely benefit from continued diuresis. Will need to check electrolytes as an outpatient. 5. Incidental note of right orbital mass The patient's family was made aware of these radiographic findings. At the current time, they are not wishing to pursue any additional workup. 6. Super morbid obesity/diabetes/medical noncompliance/hypertension/depression/gout/GERD Complicates care, management, recovery and prognosis. Likely okay to continue home medications for now. Recommend Accu-Cheks and sliding scale coverage. Code Visit Inpatient E&M: 12602 Subs Hosp L2
--- NOTE | 2018-04-26 13:44 | CASEMGMT ---
Received insurance approval for patient to return to [facility]. Called [facility] and arranged for patient to get picked up at 3p via bariatric cot. SW faxed orders to [facility] and wrote on fax face sheet that patient is being picked up at 3p. SW called patient's sister, Heidi and left her a voice mail letting her know that patient is going back to [facility] and will be picked up at 3p. SW went to tell patient, but he was sleeping and did not wake up when SW called his name. Plan: d/c back to [facility] under skilled level of care. 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 [facility] transported patient via bariatric cot. Jaqueline TOTH MSW
--- NOTE | 2018-04-26 14:03 | NURSING ---
report called to Yolis Miranda at [facility].
== END 2018-04-26 15:31 | disposition skilled nursing facility (03) | DRG 208 ==
LOC: ED 11:57 → ICU 15:48 → PCU 04-25 12:45
PROVIDERS: Internal Medicine Critical Care Medicine; Admitting Provider Internal Medicine; Emergency Provider Emergency Medicine; Family Provider Family Medicine; PCP Family Medicine; Visit Provider Internal Medicine
DX: J96.22 Acute and chronic respiratory failure with hypercapnia (principal); A41.9 Sepsis, unspecified organism; G93.41 Metabolic encephalopathy; I50.43 Acute on chronic combined systolic (congestive) and diastolic (congestive) heart failure; R65.20 Severe sepsis without septic shock; L03.116 Cellulitis of left lower limb; L03.115 Cellulitis of right lower limb; E66.2 Morbid (severe) obesity with alveolar hypoventilation; Z68.45 Body mass index [BMI] 70 or greater, adult; J96.21 Acute and chronic respiratory failure with hypoxia; I89.1 Lymphangitis; Z23 Encounter for immunization; I11.0 Hypertensive heart disease with heart failure; I48.0 Paroxysmal atrial fibrillation; I27.20 Pulmonary hypertension, unspecified; I87.2 Venous insufficiency (chronic) (peripheral); I89.0 Lymphedema, not elsewhere classified; E11.9 Type 2 diabetes mellitus without complications; Z79.899 Other long term (current) drug therapy; Z79.84 Long term (current) use of oral hypoglycemic drugs
CPT/HCPCS: 31500; 31720; 36415; 36569; 36600; 51702; 70450; 71045; 74018; 80048; 81001; 82803; 82962; 83605; 83735; 83880; 84100; 84484; 85025; 85027; 87040; 87070; 87077; 87086; 87088; 87186; 87205; 87449; 87641; 93005; 93306; 94002; 94003; 94640; 94660; 94770; 95831; 97163; 97165; 97530; 97802; 99251; 99285; J7030; J7040; J7050; Q9957; 90686; A4216; G0463; J0330; J0696; J1940

== ENCOUNTER → 2019-11-02 17:26 | Outpatient (REF) | payer OTHER, MEDICARE, SELFPAY ==
[2018-04-21 16:54] VITALS: BMI 77.7
== END ==
LOC: MTDU 17:26
PROVIDERS: PCP Family Medicine; Visit Provider Nurse Practitioner Adult Health
DX: Z11.59 Encounter for screening for other viral diseases (principal)
CPT/HCPCS: 87635; U0004